=== PATIENT | female | born 1945 | race Hispanic/Latino ===

== ENCOUNTER → 2017-04-03 | Day surgery (SDC) | payer MEDICARE, OTHER ==
[~2017-04-03] MED LIST: ANUSOL-HC25 MG RC; APRISO0.375 GM PO; BENICAR40 MG PO; CARVEDILOL25 MG PO; FERROUS SULFAT325 M1 PO; FERROUS SULFAT325 MG; FOLIC ACID1 MG PO; GABAPENTIN300 MG PO; LEVAQUIN250 MG PO; LEVAQUIN500 MG PO; LOSARTAN POTASS25 MG PO; MAGNESIUM OXID400 MG PO; MECLIZINE HCL12.5 MG PO; MIDAZOLAM HCL 2 MG/2 ML VIAL ONE; OMEPRAZOLE40 MG PO; OR PHACO EYE KIT ONE; PANTOPRAZOLE SO40 MG PO; PLAVIX75 MG PO; PREDNISONE10 MG PO; PREOP PHACO EYE KIT ONE; SUCRALFATE1 GM PO; ULTRAM 50MG50 MG PO
== END | disposition home or self-care (01) ==
LOC: OR 09:51
PROVIDERS: ATTEND Ophthalmology
DX: H25.11 Age-related nuclear cataract, right eye (principal); I10 Essential (primary) hypertension; K50.90 Crohn's disease, unspecified, without complications; E03.9 Hypothyroidism, unspecified; F32.9 Major depressive disorder, single episode, unspecified
CPT/HCPCS: 66984; J2250; V2787

== ENCOUNTER 2017-10-26 05:07 | Inpatient (IN) | payer MEDICARE, OTHER ==
[~2017-10-26] VITALS: Ht 162.6 cm; Wt 83.0 kg
[~2017-10-26 05:07] MED LIST changes: -MIDAZOLAM HCL 2 MG/2 ML VIAL ONE; -OR PHACO EYE KIT ONE; -PREOP PHACO EYE KIT ONE
[2017-10-26] MEDS ORDERED: PANTOPRAZOLE 40 MG 10ML VIAL IV STA (05:44)
[2017-10-26 06:13] LABS: BASOPHILS % 0.2 % (0.0-1.0); EOSINOPHILS # (AUTO) 0.2 (0.0-0.4); HEMATOCRIT 33.8 % (34.2-44.1); HEMOGLOBIN 10.6 g/dL (12.0-16.0); LYMPHOCYTES # (AUTO) 2.1 (1.0-3.2); LYMPHOCYTES % 22.2 % (18.0-39.1); MEAN CORPUSCULAR HGB CONC 31.4 g/dL (31-35); MONOCYTES # (AUTO) 0.9 (0.2-0.8); MONOCYTES % 8.8 % (4.4-11.3); NEUTROPHILS # (AUTO) 6.4 (2.1-6.9); NEUTROPHILS % 66.2 % (38.7-80.0); PLATELET COUNT 248 x10e3/uL (140-360); RED BLOOD COUNT 4.07 x10e6/uL (3.6-5.1)
[2017-10-26 06:23] LABS: INR 1.05; PROTHROMBIN TIME 12.9 seconds (11.9-14.5)
[2017-10-26 06:24] LABS: PARTIAL THROMBOPLASTIN TIME 33.8 seconds (23.8-35.5)
[2017-10-26 06:33] LABS: ALANINE AMINOTRANSFERASE 9 IU/L (0-55); ALBUMIN 3.6 g/dL (3.5-5.0); ALBUMIN/GLOBULIN RATIO 1.1 (0.8-2.0); ALKALINE PHOSPHATASE 97 IU/L (40-150); ANION GAP 13.8 mmol/L (8-16); BLOOD UREA NITROGEN 31 mg/dL (7-26); BUN/CREATININE RATIO 23 (6-25); CALCIUM 9.4 mg/dL (8.4-10.2); CARBON DIOXIDE 19 mmol/L (22-29); CHLORIDE 110 mmol/L (98-107); CREATINE KINASE 33 IU/L (29-168); CREATININE, SERUM 1.33 mg/dL (0.57-1.11); EST GLOMERULAR FILTRATION RATE 39 ML/MIN (60-); GLUCOSE 99 mg/dL (74-118); POTASSIUM 3.8 mmol/L (3.5-5.1); SODIUM 139 mmol/L (136-145)
[2017-10-26] MEDS ORDERED: PROBIOTIC & AC1 EACH PO (06:37)
[2017-10-26] MEDS ORDERED: HYDROCHLOROTH12.5 M1 PO (06:37)
[2017-10-26] MEDS ORDERED: LEVOTHYROXINE50 MCG PO (06:37)
[2017-10-26] MEDS ORDERED: TIZANIDINE HCL4 M1 PO (06:37)
[2017-10-26] MEDS ORDERED: NORVASC5 MG PO (06:37)
[2017-10-26] MEDS ORDERED: SULFASALAZINE500 MG PO (06:37)
--- NOTE | 2017-10-26 06:42 | Diagnostic Imaging Report ---
CHEST 2 VIEWS, Technique: CHEST 2 VIEWS Comparison: 11/30/2016 Clinical history: Shortness of breath DISCUSSION: Normal cardiomediastinal silhouette. Low lung volumes with bibasilar vascular crowding/atelectasis. No pleural effusion or pneumothorax. IMPRESSION: Low lung volumes without acute abnormality Signed by: Dr Beth Marrero MD on 10/26/2017 6:38 AM
[2017-10-26 06:48] LABS: BILIRUBIN,URINE NEGATIVE (NEGATIVE); CLARITY,URINE CLEAR (CLEAR); COLOR,URINE YELLOW (YELLOW); KETONES,URINE NEGATIVE (NEGATIVE); LEUKOCYTE ESTERASE ,URINE TRACE (NEGATIVE); NITRITE,URINE NEGATIVE (NEGATIVE); PROTEIN,URINE DIPSTICK NEGATIVE (NEGATIVE); URINE UROBILINOGEN 0.2 mg/dL (0.2 - 1)
[2017-10-26 06:52] LABS: BACTERIA,URINE FEW /HPF; EPITHELIAL CELLS,URINE FEW /LPF; WBC,URINE (MAN) 0-5 /HPF (0-5)
[2017-10-26 06:52] LABS: THYROID STIMULATING HORMONE 4.373 uIU/mL (0.350-4.940)
[2017-10-26] MEDS ORDERED: SODIUM CHLORIDE 0.9% 500ML 500 ML IV ONE (07:30)
[2017-10-26] MEDS: FAMOTIDINE 20 MG/2 ML VIAL IV SCH ×2 (07:44→20:06)
[2017-10-26] MEDS ORDERED: SODIUM CHLORIDE 0.9% 250ML 250 ML ONE (09:14)
[2017-10-26 09:20] VITALS: BP 169/82
--- NOTE | 2017-10-26 10:05 | Diagnostic Imaging Report ---
PROCEDURE: CT scan of the chest WITH intravenous contrast, using PE protocol. TECHNIQUE: The chest was scanned utilizing a multidetector helical scanner from the lung apex through the level of the adrenal glands after the IV administration of 71 cc of Isovue 370. Coronal and sagittal multiplanar reformations were obtained. DLP: 542.54 mGy-cm COMPARISON: None. INDICATIONS: WOKE UP AND WAS UNABLE TO BREATHE. SHORTNESS OF BREATH FINDINGS: Lines/tubes: None. Lungs and Airways: No CTA evidence of pulmonary emboli. Mosaic attenuation of the lungs compatible with air trapping. There is a left lower lobe calcified granuloma. No nodules or masses. Pleura: The pleural spaces are clear. Heart and mediastinum: There is a 1.6 cm hypodense nodule in the mid right thyroid lobe. Another 8mm hypodense nodule is noted in the inferior right thyroid lobe. Several calcifications in the left thyroid lobe are noted. Mediastinal and left hilar calcifications compatible with granulomatous changes. No significant mediastinal, hilar or axillary lymphadenopathy is seen. The heart and pericardium are within normal limits. Common origin of the innominate artery and left common carotid artery. Soft tissues: Normal. Abdomen: Limited contrast-enhanced views of the upper abdomen show no abnormality within the visualized spleen, pancreas or kidneys. Decreased CT attenuation of the liver compatible with mild steatosis. The adrenal glands are normal. Bones: Degenerative changes of the spine. IMPRESSION: 1. No CT evidence of pulmonary emboli. 2. Mosaic attenuation of the lung blevins compatible with air trapping. 3. Hypodense nodule in the right thyroid lobe-formal thyroid ultrasound would be of benefit. Nain Burton D.O. Dictated by: Nain Burton D.O. on 10/26/2017 at 10:09 Electronically approved by: Nain Burton D.O. on 10/26/2017 at 10:09
[2017-10-26] MEDS: ASPIRIN 81 MG ENTERIC COATED PO SCH (10:10)
[2017-10-26] MEDS: TIZANIDINE HCL 4 MG TAB PO SCH ×2 (10:15→23:15)
[2017-10-26 10:32] VITALS: BP 169/82
--- NOTE | 2017-10-26 11:45 | History and Physical ---
She is a 72-year-old female patient presented to the emergency room with a shortness of breath. CHIEF COMPLAINT: Patient woke up with severe shortness of breath and was checking and he insisted her to come to the ER. Patient was having shortness of breath for last two to three weeks. Patient stating that she gets short of breath on minimum of activity. In ER, patient was evaluated. Patient denies having any chest pain, cough, and congestion, but with shortness of breath. Patient has minimal activity, short of breath and patient become hypoxic from O2 sat dropped 99 to 87 on minimum activity in the ER. REVIEW OF SYSTEMS: As per history of present illness. PAST MEDICAL HISTORY: Depression, anxiety, GERD, anemia, Crohn's disease, and hypothyroidism. ALLERGIES: No known drug allergies. MEDICATIONS: See from the list. SOCIAL HISTORY: Denies smoking, denies using alcohol. FAMILY HISTORY: Hypertension. PHYSICAL EXAMINATION GENERAL: Elderly female patient lying in bed, not in any acute distress. VITAL SIGNS: Temperature 98, pulse rate 78, respirations 15, and blood pressure 110/74. HEENT: Normocephalic and atraumatic. NECK: No JVD. No lymphadenopathy. LUNGS: Bilateral equal air entry. No rales, no rhonchi. HEART: S1 and S2, regular. No murmur. No gallop. ABDOMEN: Soft. Bowel sounds are present. NEUROLOGIC: Nonfocal. No neurologic deficit. ADMITTING IMPRESSION/DIAGNOSES: Shortness of breath rule out ischemia, myocardial infarction, and hypoxemia. CT scan of the chest was done which was negative for pulmonary embolism. The patient will have serial EKGs and cardiac enzymes and echocardiogram was done which showed 55% to 60% ejection fraction and no significant valvular disease. So, cardiology evaluation will be done and patient will be followed up. Job#: [id number] ERIC
[2017-10-26 11:57] VITALS: BP 159/79
[2017-10-26] MEDS: SULFASALAZINE 500 MG TAB PO SCH ×3 (13:16→20:06)
--- NOTE | 2017-10-26 13:45 | Consultation ---
DATE OF CONSULTATION: October 26, 2017 INTERVENTIONAL CARDIOLOGY CONSULTATION REFERRING PHYSICIAN: Dr. Martín Miller REASON FOR CONSULTATION: Dyspnea on exertion. HISTORY OF PRESENT ILLNESS: Ms. Anita Ritter is a pleasant 72-year-old woman with a past medical history significant for anxiety, depression, anemia, Crohn's disease, gastroesophageal reflux disease as well as hypothyroidism. She presents via the emergency department to [facility] with complaints of worsening dyspnea over the last week. Dyspnea occurs with exertion and is relieved by rest. She denies any chest discomfort. She does have occasional cough which is dry. No fever is reported. Per ER, oxygen saturation drops from 99% to 87% with minimal activity while in the ER. Initial studies include negative cardiac biomarkers including troponin I as well as a BNP of 14.7, chest x-ray with low lung volumes without acute abnormality and a chest CT which shows no evidence of pulmonary embolism and most likely attenuation of the lung blevins compatible with air-trapping and hypodense nodule in the right thyroid lobe from a thyroid ultrasound. Echocardiogram was reviewed revealing preserved left ventricular systolic function, normal regional wall motion, left ventricular ejection fraction of 65% to 70% with normal diastolic filling, trace mitral and tricuspid regurgitation. Her EKG reveals normal sinus rhythm, normal EKG. She is mildly anemic at 10.6 with a creatinine of 1.3. REVIEW OF SYSTEMS: A 12-system review, negative except for as noted above. ALLERGIES: No known drug allergies. PAST MEDICAL HISTORY: As per HPI, include depression, anxiety, reflux, anemia, Crohn's disease, hypothyroidism. SOCIAL HISTORY: No smoke, no alcohol, no drugs reported. FAMILY HISTORY: Significant for hypertension. Adequate family support. HOME MEDICATIONS: Please see medication reconciliation form. PHYSICAL EXAMINATION VITAL SIGNS: Temperature 95.6, heart rate 87, respiratory rate 16, blood pressure 159/79. On admission blood pressure was 132/84. O2 sat 97% at rest. GENERAL: No acute distress. Alert. NECK: No JVD. CHEST: Decreased breath sounds in bilateral bases. CARDIOVASCULAR: Regular rate and rhythm. Normal S1 and S2. No S3, no S4. No murmurs, no rubs. ABDOMEN: Soft, nontender. EXTREMITIES: No edema. Warm distal extremities. CURRENT IN-HOSPITAL CARDIOVASCULAR MEDICATIONS: Include 1. Aspirin 81 mg daily. 2. Carvedilol 12.5 mg b.i.d. 3. Prednisone 5 mg daily. 4. Amlodipine 10 mg daily. 5. Ferrous sulfate 325 mg daily. 6. Losartan 100 mg daily. STUDIES: Sodium 139, potassium 3.8, chloride 110, bicarb 19, BUN 31, creatinine 1.33, glucose 99, calcium 9.4, magnesium 2. Total bilirubin 0.5, AST 13, ALT 9, alk phos 97, CK 33, CK-MB 0.7. Troponin I less than 0.001. BNP 14.7. Total protein 7, albumin 3.6, TSH 4.3. ASSESSMENT 1. Dyspnea on exertion with exertional hypoxemia and abnormal chest CT findings with most likely attenuation of lungs compatible with air trapping. 2. Hypothyroidism. 3. Anemia. 4. Chronic kidney disease versus acute kidney injury. 5. Metabolic acidosis. 6. History of Crohn's disease. RECOMMENDATIONS 1. Dyspnea seems likely multifactorial. Although anemic, her level of anemia is not significant enough to attribute most of her symptoms. I am most concerned about her dropping oxygen levels with exertion, particularly with findings on chest CT of the lungs and suspect likely culprit is ongoing lung issue, whether it is infectious, atypical infection or pneumonitis/fibrotic process, warrants further evaluation. Will defer to Dr. Miller's expertise. 2. Differential diagnosis angina pectoris, unstable, is a possibility. We will send an additional set of cardiac enzymes and if negative plan for a stress test in the a.m. Will continue the rest of the cardiovascular medications for the time being. Anemic workup advised. Thank you for the opportunity to participate in the care of Anita. Please feel free to call with any questions or concerns. Office number [phone]. Job#: [id number] LOLIS
[2017-10-26] MEDS ORDERED: SODIUM CHLORIDE 0.9% 50ML 50 ML ONE (13:47)
[2017-10-26] MEDS ORDERED: IOPAMIDOL 370 MG/ML 200 ML INFUS..BTL INJ ONE (13:47)
[2017-10-26 16:00] VITALS: BP 111/60
[2017-10-26] MEDS: CARVEDILOL 12.5 MG TAB PO SCH (16:09)
[2017-10-26] MEDS ORDERED: REGADENOSON 0.4 MG/5 ML SYR IV ONE (17:26)
[2017-10-26 17:27] LABS: CREATINE KINASE MB 0.7 ng/mL (0-5.0)
[2017-10-26 20:00] VITALS: BP 112/46
[2017-10-26 20:13] VITALS: BP 112/46
[2017-10-27] VITALS (9 sets, daily range): BP systolic 100–152; BP diastolic 61–70
[2017-10-27] MEDS: TIZANIDINE HCL 4 MG TAB PO SCH ×3 (00:11→21:15)
[2017-10-27 04:55] LABS: BASOPHILS % 0.4 % (0.0-1.0); EOSINOPHILS # (AUTO) 0.3 (0.0-0.4); EOSINOPHILS % 3.6 % (0.0-6.0); HEMATOCRIT 29.3 % (34.2-44.1); HEMOGLOBIN 9.2 g/dL (12.0-16.0); LYMPHOCYTES # (AUTO) 1.8 (1.0-3.2); LYMPHOCYTES % 21.7 % (18.0-39.1); MEAN CORPUSCULAR HGB CONC 31.4 g/dL (31-35); MEAN CORPUSCULAR VOLUME 82.8 fL (81-99); MONOCYTES # (AUTO) 0.7 (0.2-0.8); MONOCYTES % 8.4 % (4.4-11.3); NEUTROPHILS # (AUTO) 5.4 (2.1-6.9); NEUTROPHILS % 65.2 % (38.7-80.0); PLATELET COUNT 204 x10e3/uL (140-360); RED BLOOD COUNT 3.54 x10e6/uL (3.6-5.1); RED CELL DISTRIBUTION WIDTH 17.9 % (11.7-14.4)
[2017-10-27 05:19] LABS: ALBUMIN 3.1 g/dL (3.5-5.0); ALBUMIN/GLOBULIN RATIO 1.1 (0.8-2.0); ANION GAP 11.7 mmol/L (8-16); CALCIUM 8.5 mg/dL (8.4-10.2); CHOL/HDL RATIO 2.9 (3.0-3.6); CREATININE, SERUM 1.27 mg/dL (0.57-1.11); POTASSIUM 3.7 mmol/L (3.5-5.1)
[2017-10-27] MEDS: PANTOPRAZOLE SOD 40 MG TABEC PO SCH (07:30)
[2017-10-27] MEDS: CARVEDILOL 12.5 MG TAB PO SCH ×2 (08:00→16:25)
[2017-10-27] MEDS: LEVOTHYROXINE SODIUM 50 MCG TAB PO SCH (09:00)
[2017-10-27] MEDS: LOSARTAN POTASSIUM 100 MG TAB PO SCH (09:00)
--- NOTE | 2017-10-27 10:43 | Progress Note ---
DATE: October 27, 2017 CARDIOLOGY PROGRESS NOTE SUBJECTIVE: No complaints. Stress test this a.m. Report to follow. OBJECTIVE VITALS: Temperature 96.6, heart rate 79, respiratory rate 18, blood pressure 140/70, O2 sat 95% on room air. GENERAL: No acute distress. Alert. NECK: No JVD. CHEST: Decreased breath sounds in bilateral bases. CARDIOVASCULAR: Regular rate and rhythm. Normal S1 and S2. No S3. No S4. No murmurs. No rubs. ABDOMEN: Soft. EXTREMITIES: No edema. Warm distal extremities. CARDIOVASCULAR MEDICATIONS 1. Aspirin 81 mg daily. 2. Carvedilol 12.5 mg q.12 h. 3. Cardizem 5 mg daily. 4. Amlodipine 10 mg daily. STUDIES: Reviewed. White blood cells 8.3, hemoglobin 9.2 and platelets 204,000. Creatinine 0.4. Sodium 139, potassium 3.7, chloride 112, bicarbonate 19, BUN 29, creatinine 1.27. Triglycerides 142, total cholesterol 119, LDL 50, HDL 41. TSH 4.3. Tele is normal sinus rhythm. ASSESSMENT 1. Exertional dyspnea with associated drops in saturation: Normal computerized tomography lung findings. 2. Possible angina pectoris, unstable: Ruled out with serial cardiac enzymes. Stress test today. Report to follow. 3. Anemia. 4. Chronic kidney disease versus acute kidney injury. 5. Metabolic acidosis. 6. History of Crohn disease. 7. Hypothyroidism. 8. Hypertension. PLAN 1. Continue current cardiovascular medications. 2. Await results from stress test. Will dictate report once available. 3. Consider pulmonary consultation. Defer to Dr. Miller's expertise. Job#: [id number] ND
[2017-10-27] MEDS ORDERED: ACETAMINOPHEN 325 MG TAB PO PRN (11:45)
[2017-10-27] MEDS: ASPIRIN 81 MG ENTERIC COATED PO SCH (12:06)
[2017-10-27] MEDS: SULFASALAZINE 500 MG TAB PO SCH ×4 (12:06→21:14)
[2017-10-27] MEDS: FAMOTIDINE 20 MG/2 ML VIAL IV SCH ×2 (12:06→21:00)
[2017-10-27] MEDS: FOLIC ACID 1 MG TAB PO SCH (12:07)
[2017-10-27] MEDS: LACTOBACILLUS ACIDOPHILUS CAPSULE PO SCH (12:07)
[2017-10-27] MEDS: PREDNISONE 5 MG TAB PO SCH (12:07)
[2017-10-27] MEDS: HYDROCHLOROTHIAZIDE 25 MG TAB PO SCH (12:07)
[2017-10-27] MEDS: FERROUS SULFATE 325 MG TAB PO SCH (12:07)
[2017-10-27] MEDS: AMLODIPINE BESYLATE 10 MG TAB PO SCH (12:07)
--- NOTE | 2017-10-27 14:28 | Consultation ---
DATE OF CONSULTATION: October 27, 2017 PULMONARY CONSULTATION REASON FOR CONSULTATION: Shortness of breath. HPI: Ms. Ritter is a 72-year-old female. She was brought in to the emergency room with the complaints of shortness of breath. Patient is a regular patient of Dr. Martín Miller. In the ER, the patient was evaluated. She is denying any chest pain, cough or congestion. Her O2 sat dropped to 87% on minimal activity in the ER. She denies any complaints right now. Patient reports that she has episodes where she gets short of breath and started having numbness and tingling in the arms. I reviewed the CT scan and chest films, which is reported as mosaic pattern. However, it seems like the patient did not take a deep breath, and the CT was done on expiration as the trachea is not fully expanded with inspiration. There was no evidence of pulmonary embolism. REVIEW OF SYSTEMS GENERAL: Denies any fever or chills. HEENT: Denies any head trauma. ENT: Denies any earache. CV: Denies any chest pain. RESPIRATORY: Shortness of breath. GI: Denies any nausea or vomiting. The rest of the review systems are negative, except as in HPI. PAST MEDICAL HISTORY: Depression, anxiety, GERD, anemia, Crohn disease, hypothyroidism. ALLERGIES: NO KNOWN DRUG ALLERGIES. SOCIAL HISTORY: She does not smoke. Does not drink. FAMILY HISTORY: Significant for hypertension. PHYSICAL EXAMINATION VITAL SIGNS: Temperature 96.3, Pulse of 90, blood pressure 152/67, respiratory rate of 18, O2 sat is 96% on room. HEENT: Head is atraumatic and normocephalic. NECK: Supple. Oral mucosa is dry. No JVD. Thyroid not enlarged. CHEST: Clear to auscultation bilaterally. No wheezing. No crackles. Good air entry. HEART: S1 and S2 audible. No murmurs, gallops or rub. It is regular. ABDOMEN: Soft, nontender and nondistended. Bowel sounds audible. No hepatosplenomegaly. EXTREMITIES: No clubbing, cyanosis or edema. NEUROLOGIC: Awake and alert. No focal neurologic deficit. LABS: White count of 8.3, hemoglobin 9.2 and platelets 204,000. Chemistries: Sodium 139, potassium 3.7, chloride 112, bicarb is 19, anion gap of 11.7, BUN 31, creatinine 1.27. CT of the chest, I reviewed the films. Reported as mosaic pattern. I think the patient did not take a deep breath. Mosaic pattern of the lung. It was done in expiration, and it is showing some poor respiratory effort. However, the mosaic pattern can also signify bronchiolitis. ASSESSMENT AND PLAN: Ms. Ritter is a 72-year-old female. She presented with shortness of breath. She has history of Crohn disease, depression, anxiety. Oxygen saturation now is 97%, but episodically she has shortness of breath. Computerized tomography is showing mosaic pattern. The most common differential for mosaic pattern is bronchiolitis versus asthma. CURRENT PROBLEMS 1. Shortness of breath: Stress test is pending. Cardiology note suggests that likely it is not cardiac in origin. Could be due to bronchiolitis, which can happen with Crohn disease. However, rare and it can be due to asthma as well. At this point, I will start the patient on steroid inhaler and nebulizer treatment as well. 2. Acute kidney injury with normal anion gap metabolic acidosis: I will hold off on hydrochlorothiazide for now. Possibly causing her to have renal failure. It could be chronic kidney disease as well. 3. History of Crohn disease, likely reason for being on low-dose prednisone: I am unsure about this. She is on sulfasalazine as well. Discussed with the family at bedside in detail. Job#: [id number] OLIVA
[2017-10-28] VITALS: BP 101/58
[2017-10-28 03:51] VITALS: BP 101/55
[2017-10-28] MEDS: LEVOTHYROXINE SODIUM 50 MCG TAB PO SCH (05:12)
[2017-10-28 07:50] VITALS: BP 114/60
[2017-10-28] MEDS: FAMOTIDINE 20 MG/2 ML VIAL IV SCH ×2 (09:01→21:19)
[2017-10-28] MEDS: PANTOPRAZOLE SOD 40 MG TABEC PO SCH (09:01)
[2017-10-28] MEDS: TIZANIDINE HCL 4 MG TAB PO SCH ×2 (09:10→21:20)
[2017-10-28] MEDS: LOSARTAN POTASSIUM 100 MG TAB PO SCH (09:40)
[2017-10-28] MEDS: SULFASALAZINE 500 MG TAB PO SCH ×4 (09:40→21:19)
[2017-10-28] MEDS: CARVEDILOL 12.5 MG TAB PO SCH ×2 (09:40→16:58)
[2017-10-28] MEDS: ASPIRIN 81 MG ENTERIC COATED PO SCH (09:40)
[2017-10-28] MEDS: HYDROCHLOROTHIAZIDE 25 MG TAB PO SCH (09:41)
[2017-10-28] MEDS: LACTOBACILLUS ACIDOPHILUS CAPSULE PO SCH (09:41)
[2017-10-28] MEDS: FOLIC ACID 1 MG TAB PO SCH (09:41)
[2017-10-28] MEDS: AMLODIPINE BESYLATE 10 MG TAB PO SCH (09:41)
[2017-10-28] MEDS: PREDNISONE 5 MG TAB PO SCH (09:41)
[2017-10-28] MEDS: FERROUS SULFATE 325 MG TAB PO SCH (09:41)
[2017-10-28] MEDS: BUDESONIDE 0.5MG/2 ML NEB INH SCH ×2 (10:30→20:00)
[2017-10-28] MEDS: LEVALBUTEROL HCL SOLN NEBU 1.25 MG/3 ML NEB INH SCH ×3 (10:30→19:45)
[2017-10-28 12:00] VITALS: BP 102/58
[2017-10-28 16:04] VITALS: BP 113/67
--- NOTE | 2017-10-28 19:45 | Progress Note ---
DATE: October 28, 2017 CARDIOLOGY PROGRESS NOTE SUBJECTIVE: No complaints today. Denies dyspnea at rest; however, continues to have dyspnea on exertion. OBJECTIVE VITAL SIGNS: Temperature 97.4, heart 77, respiratory rate 16, blood pressure 102/58, O2 sat 98% room air. GENERAL: No acute distress. NECK: No JVD. CHEST: Clear to auscultation. CARDIOVASCULAR: Regular rate and rhythm. Normal S1 and S2. No S3, no S4, no murmurs, no rubs. ABDOMEN: Soft, nontender, nondistended. EXTREMITIES: No edema. CARDIOVASCULAR MEDICATIONS: Reviewed. 1. Carvedilol 12.5 mg q.12 h. 2. Hydrochlorothiazide 12.5 mg daily. 3. Amlodipine 10 mg daily. 4. Aspirin 81 mg daily. 5. Losartan 100 mg daily. LABS: Reviewed. White blood cells 8.3, hemoglobin 9.2, platelets 204,000. Yesterday's creatinine was 1.2 with bicarb of 19. TELEMETRY: Normal sinus rhythm. ASSESSMENT 1. Dyspnea on exertion with normal rest and stress myocardial perfusion imaging and left ventricular ejection fraction more than 70% (reassuring stress test). 2. Anemia. 3. Chronic kidney disease versus acute kidney injury. 4. Metabolic acidosis. 5. History of chronic Crohn's disease. 6. Hypothyroidism. 7. Hypertension. RECOMMENDATIONS: At this point, I would advise on evaluation for alternative etiologies for shortness of breath mainly from the lung standpoint given CT findings. Eval testing is unremarkable, can then consider pursuing invasive cardiac evaluation with right heart cath and left heart cath with coronary angiography. However, at this point, I do not feel this is the likely culprit given clinical presentation, as well as stress test findings. Will follow closely. Job#: [id number] CQ
[2017-10-28 20:43] VITALS: BP 122/59
[2017-10-29] VITALS: BP 104/60
[2017-10-29] MEDS: LEVALBUTEROL HCL SOLN NEBU 1.25 MG/3 ML NEB INH SCH ×2 (01:00→06:50)
[2017-10-29 04:00] VITALS: BP 123/57
[2017-10-29 05:12] LABS: BASOPHILS % 0.3 % (0.0-1.0); EOSINOPHILS # (AUTO) 0.2 (0.0-0.4); EOSINOPHILS % 2.5 % (0.0-6.0); HEMOGLOBIN 9.1 g/dL (12.0-16.0); LYMPHOCYTES # (AUTO) 1.3 (1.0-3.2); LYMPHOCYTES % 16.5 % (18.0-39.1); MEAN CORPUSCULAR HEMOGLOBIN 26.5 pg (28-32); MEAN CORPUSCULAR HGB CONC 32.5 g/dL (31-35); MEAN CORPUSCULAR VOLUME 81.4 fL (81-99); MONOCYTES # (AUTO) 0.7 (0.2-0.8); MONOCYTES % 8.5 % (4.4-11.3); NEUTROPHILS # (AUTO) 5.7 (2.1-6.9); NEUTROPHILS % 71.6 % (38.7-80.0); PLATELET COUNT 207 x10e3/uL (140-360); RED BLOOD COUNT 3.44 x10e6/uL (3.6-5.1); RED CELL DISTRIBUTION WIDTH 17.8 % (11.7-14.4)
[2017-10-29 05:29] LABS: ALBUMIN 3.3 g/dL (3.5-5.0); ALBUMIN/GLOBULIN RATIO 1.1 (0.8-2.0); ANION GAP 12.5 mmol/L (8-16); CALCIUM 8.9 mg/dL (8.4-10.2); CREATININE, SERUM 1.42 mg/dL (0.57-1.11); POTASSIUM 3.5 mmol/L (3.5-5.1)
[2017-10-29] MEDS: ONDANSETRON HCL INJ 2 MG/ML VIAL IV PRN ×2 (05:34→13:01)
[2017-10-29] MEDS: LEVOTHYROXINE SODIUM 50 MCG TAB PO SCH (06:05)
[2017-10-29] MEDS: BUDESONIDE 0.5MG/2 ML NEB INH SCH (06:50)
[2017-10-29] MEDS: FAMOTIDINE 20 MG/2 ML VIAL IV SCH (07:30)
[2017-10-29] MEDS: FOLIC ACID 1 MG TAB PO SCH (08:58)
[2017-10-29] MEDS: FERROUS SULFATE 325 MG TAB PO SCH (08:58)
[2017-10-29] MEDS: SULFASALAZINE 500 MG TAB PO SCH (08:58)
[2017-10-29] MEDS: PANTOPRAZOLE SOD 40 MG TABEC PO SCH (08:58)
[2017-10-29] MEDS: ASPIRIN 81 MG ENTERIC COATED PO SCH (08:58)
[2017-10-29] MEDS: CARVEDILOL 12.5 MG TAB PO SCH (08:59)
[2017-10-29] MEDS: LACTOBACILLUS ACIDOPHILUS CAPSULE PO SCH (08:59)
[2017-10-29] MEDS: AMLODIPINE BESYLATE 10 MG TAB PO SCH (08:59)
[2017-10-29] MEDS: PREDNISONE 5 MG TAB PO SCH (08:59)
[2017-10-29] MEDS: LOSARTAN POTASSIUM 100 MG TAB PO SCH (08:59)
[2017-10-29] MEDS: HYDROCHLOROTHIAZIDE 25 MG TAB PO SCH (09:00)
[2017-10-29] MEDS ORDERED: CYANOCOBALAMIN INJ 1,000 MCG/ML VIAL IM ONE (10:15)
[2017-10-29 10:20] VITALS: BP 121/58
[2017-10-29] MEDS: TIZANIDINE HCL 4 MG TAB PO SCH (11:33)
[2017-10-29] MEDS ORDERED: SYMBICORT 80-10.2 GM INH (11:58)
[2017-10-29] MEDS ORDERED: XOPENEX HFA15 GM INH (11:59)
[2017-10-29 12:15] VITALS: BP 115/61
--- NOTE | 2017-10-29 13:02 | Discharge Summary ---
She is a 72-year-old female patient who presented with complaint of shortness of breath. ADMITTING IMPRESSION AND DIAGNOSES 1. Shortness of breath. 2. Rule out myocardial ischemia. 3. Hypoxemia. 4. Suspect pulmonary embolism. 5. Colitis. 6. Inflammatory bowel disease. 7. Crohn's disease. 8. Hypokalemia. HOSPITAL COURSE SUMMARY: The patient was admitted with the above diagnoses. The patient had pulmonary and cardiology evaluation done by Dr. Woodall. The patient had a CT scan of the chest done, which was negative for PE. She had a right thyroid nodule. No PE. The patient had an echocardiogram done. Ejection fraction was 55% to 60%. Stress myocardial perfusion study was done, which was negative. The patient was given Pulmicort and Xopenex inhaler. The patient improved significantly. Now, upon stabilization, the patient will be discharged home. The patient will be followed up as an outpatient. NELLY VELEZ MD Job#: [id number]
[2017-10-29] MEDS ORDERED: FAMOTIDINE 20 MG TAB PO SCH (16:30)
--- NOTE | 2017-11-12 11:47 | Cardiology Report ---
DATE OF STUDY: October 27, 2017 LEXISCAN STRESS TEST INTERPRETATION: Rest and stress myocardial perfusion with Lexiscan and technetium was performed using SPECT imaging on Ms. Ritter. At rest, heart rate was 84, blood pressure 143/83 and resting EKG showed normal sinus rhythm, otherwise normal EKG. After Lexiscan was administered, heart rate juan to 112 beats per minute, blood pressure increased to 151/78. There were no significant ST changes or arrhythmias throughout stress or recovery. Myocardial perfusion reveals normal rest and stress perfusion and gated images demonstrate hyperdynamic left ventricular systolic function with normal regional wall motion, left ventricular ejection fraction more than 70%. CONCLUSION 1. Normal hemodynamic response to Lexiscan stress. 2. Normal electrocardiographic response to Lexiscan stress. 3. Normal myocardial perfusion at rest and stress. 4. Preserved left ventricular systolic function with LVEF more than 70%. Job#: [id number] SKI
== END 2017-10-29 13:46 | disposition home or self-care (01) | DRG 202 ==
LOC: ER 05:07 → UNDOADMOB 07:38 → ERHOLD 07:38 → IMCU 09:21 → ERHOLD 10-28 13:53 → IMCU 10-28 13:53 → OBSVTOIN 10-28 13:54 → MED/SURG 10-28 17:00 → IMCU 10-28 17:00 → UNDODISOB 10-29 13:46
PROVIDERS: ADMIT Internal Medicine; ATTEND Internal Medicine
DX: J21.9 Acute bronchiolitis, unspecified (principal); N17.9 Acute kidney failure, unspecified; E87.2 Acidosis; K50.90 Crohn's disease, unspecified, without complications; R07.9 Chest pain, unspecified; D50.0 Iron deficiency anemia secondary to blood loss (chronic); R09.02 Hypoxemia; F32.9 Major depressive disorder, single episode, unspecified; K21.9 Gastro-esophageal reflux disease without esophagitis; E03.9 Hypothyroidism, unspecified; D64.9 Anemia, unspecified; N18.9 Chronic kidney disease, unspecified; E87.6 Hypokalemia; F41.9 Anxiety disorder, unspecified; I12.9 Hypertensive chronic kidney disease with stage 1 through stage 4 chronic kidney disease, or unspecified chronic kidney disease
CPT/HCPCS: 36415; 71046; 71260; 78452; 80053; 80061; 81001; 82550; 82553; 83735; 83880; 84443; 84484; 85025; 85610; 85730; 93005; 93017; 93306; 94640; 99284; A9502; G0378; J2405; J3420; J7040; J7050; J7512; Q9967

== ENCOUNTER 2017-10-31 21:58 | Emergency (ER) | payer MEDICARE, OTHER ==
[~2017-10-31] VITALS: Ht 162.6 cm; Wt 83.0 kg
[~2017-10-31 21:58] MED LIST changes: +HYDROCHLOROTH12.5 M1 PO; +LEVOTHYROXINE50 MCG PO; +NORVASC5 MG PO; +PROBIOTIC & AC1 EACH PO; +SULFASALAZINE500 MG PO; +SYMBICORT 80-10.2 GM INH; +TIZANIDINE HCL4 M1 PO; +XOPENEX HFA15 GM INH
[2017-10-31] MEDS ORDERED: DIATRIZOATE MEGL/DIATRIZOA SOD 30 ML BTL PO ONE (22:23)
[2017-10-31 22:48] LABS: BASOPHILS % 0.2 % (0.0-1.0); EOSINOPHILS # (AUTO) 0.1 (0.0-0.4); EOSINOPHILS % 1.3 % (0.0-6.0); HEMATOCRIT 33.6 % (34.2-44.1); HEMOGLOBIN 10.5 g/dL (12.0-16.0); LYMPHOCYTES # (AUTO) 2.3 (1.0-3.2); LYMPHOCYTES % 22.2 % (18.0-39.1); MEAN CORPUSCULAR HEMOGLOBIN 25.7 pg (28-32); MEAN CORPUSCULAR HGB CONC 31.3 g/dL (31-35); MEAN CORPUSCULAR VOLUME 82.2 fL (81-99); MONOCYTES # (AUTO) 1.1 (0.2-0.8); MONOCYTES % 10.3 % (4.4-11.3); NEUTROPHILS # (AUTO) 6.7 (2.1-6.9); NEUTROPHILS % 65.3 % (38.7-80.0); PLATELET COUNT 263 x10e3/uL (140-360); RED BLOOD COUNT 4.09 x10e6/uL (3.6-5.1)
[2017-10-31 23:09] LABS: ALANINE AMINOTRANSFERASE 8 IU/L (0-55); ALBUMIN 3.7 g/dL (3.5-5.0); ALBUMIN/GLOBULIN RATIO 1.1 (0.8-2.0); ALKALINE PHOSPHATASE 90 IU/L (40-150); AMYLASE 78 U/L (25-125); BLOOD UREA NITROGEN 35 mg/dL (7-26); BUN/CREATININE RATIO 21 (6-25); CALCIUM 9.5 mg/dL (8.4-10.2); CARBON DIOXIDE 20 mmol/L (22-29); CHLORIDE 108 mmol/L (98-107); CREATININE, SERUM 1.69 mg/dL (0.57-1.11); EST GLOMERULAR FILTRATION RATE 30 ML/MIN (60-); GLUCOSE 100 mg/dL (74-118); LIPASE 27 U/L (8-78); SODIUM 140 mmol/L (136-145)
[2017-10-31 23:30] LABS: CREATINE KINASE 35 IU/L (29-168)
[2017-10-31 23:45] LABS: CLARITY,URINE CLEAR (CLEAR); COLOR,URINE YELLOW (YELLOW)
[2017-10-31 23:46] LABS: BILIRUBIN,URINE 1+ (NEGATIVE); KETONES,URINE NEGATIVE (NEGATIVE); LEUKOCYTE ESTERASE ,URINE TRACE (NEGATIVE); NITRITE,URINE NEGATIVE (NEGATIVE); PROTEIN,URINE DIPSTICK NEGATIVE (NEGATIVE); URINE UROBILINOGEN 0.2 mg/dL (0.2 - 1)
[2017-10-31 23:54] LABS: BACTERIA,URINE MODERATE /HPF; EPITHELIAL CELLS,URINE FEW /LPF
--- NOTE | 2017-11-01 00:02 | Diagnostic Imaging Report ---
EXAMINATION: CHEST SINGLE (PORTABLE) INDICATION: Shortness of breath COMPARISON: 10/26/2017 FINDINGS: TUBES and LINES: None. LUNGS: Lungs are well inflated. Lungs are clear. There is no evidence of pneumonia or pulmonary edema. PLEURA: No pleural effusion or pneumothorax. HEART AND MEDIASTINUM: The cardiomediastinal silhouette is unremarkable. BONES AND SOFT TISSUES: No acute osseous lesion. Soft tissues are unremarkable. UPPER ABDOMEN: No free air under the diaphragm. IMPRESSION: No acute thoracic abnormality. Signed by: Dr. Jose Kilpatrick M.D. on 10/31/2017 11:58 PM
--- NOTE | 2017-11-01 00:07 | Diagnostic Imaging Report ---
EXAM: CT Abdomen and Pelvis WITHOUT contrast INDICATION: Lower abdominal pain. COMPARISON: None. TECHNIQUE: Abdomen and pelvis were scanned utilizing a multidetector helical scanner from the lung base to the pubic symphysis without administration of IV contrast. Absence of intravenous contrast decreases sensitivity for detection of focal lesions and vascular pathology. Coronal and sagittal reformations were obtained. Routine protocol was performed. IV CONTRAST: None. ORAL CONTRAST: Water RADIATION DOSE: Total DLP: 495.55 mGy*cm Estimated effective dose: (DLP x 0.015 x size factor) mSv COMPLICATIONS: None FINDINGS: LINES and TUBES: None. LOWER THORAX: There is bibasilar atelectasis. Calcified granuloma in the left lung base. HEPATOBILIARY: No focal hepatic lesions. No biliary ductal dilation. GALLBLADDER: There are cholecystectomy clips. SPLEEN: No splenomegaly. PANCREAS: No focal masses or ductal dilatation. ADRENALS: No adrenal nodules KIDNEYS/URETERS: No hydronephrosis. No cystic or solid mass lesions. No stones. GI TRACT: No abnormal distention, wall thickening, or evidence of bowel obstruction. Postsurgical changes related to partial right hemicolectomy or appendectomy. PELVIC ORGANS/BLADDER: Multi fibroid uterus. 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 LYMPH NODES: No lymphadenopathy. VESSELS: There is mild atherosclerotic disease in the aorta and major arterial branches. PERITONEUM / RETROPERITONEUM: No free air or fluid. BONES: There are degenerative changes in the lumbar spine. SOFT TISSUES: Unremarkable. IMPRESSION: 1. No acute intra-abdominal or pelvic abnormality. Signed by: Dr. Jose Kilpatrick M.D. on 11/01/2017 12:03 AM
[2017-11-01] MEDS ORDERED: CEFTRIAXONE SOD 1 GM VIAL IV ONE (00:15)
[2017-11-01] MEDS ORDERED: CEFTRIAXONE SOD 1 GM VIAL ONE (00:40)
== END 2017-11-01 01:23 | disposition home or self-care (01) ==
LOC: ER 21:58
DX: R10.32 Left lower quadrant pain (principal); N30.90 Cystitis, unspecified without hematuria; I10 Essential (primary) hypertension; K50.90 Crohn's disease, unspecified, without complications; E03.9 Hypothyroidism, unspecified; F32.9 Major depressive disorder, single episode, unspecified; E78.00 Pure hypercholesterolemia, unspecified
CPT/HCPCS: 36415; 71045; 74176; 80053; 81001; 82150; 82550; 82553; 83690; 84484; 85025; 93005; 99283; J0696

== ENCOUNTER 2018-12-25 19:39 | Observation (INO) | payer MEDICARE ==
[~2018-12-25] VITALS: Ht 162.6 cm; Wt 83.0 kg
[2018-12-25 21:08] LABS: BASOPHILS % 0.4 % (0.0-1.0); EOSINOPHILS # (AUTO) 0.3 (0.0-0.4); EOSINOPHILS % 2.9 % (0.0-6.0); HEMATOCRIT 33.9 % (34.2-44.1); HEMOGLOBIN 10.7 g/dL (12.0-16.0); LYMPHOCYTES # (AUTO) 1.6 (1.0-3.2); LYMPHOCYTES % 15.6 % (18.0-39.1); MEAN CORPUSCULAR HGB CONC 31.6 g/dL (31-35); MEAN CORPUSCULAR VOLUME 85.6 fL (81-99); MONOCYTES # (AUTO) 0.9 (0.2-0.8); MONOCYTES % 8.9 % (4.4-11.3); NEUTROPHILS # (AUTO) 7.5 (2.1-6.9); NEUTROPHILS % 71.3 % (38.7-80.0); PLATELET COUNT 274 x10e3/uL (140-360); RED BLOOD COUNT 3.96 x10e6/uL (3.6-5.1); RED CELL DISTRIBUTION WIDTH 15.7 % (11.7-14.4)
[2018-12-25 21:09] LABS: BILIRUBIN,URINE NEGATIVE (NEGATIVE); CLARITY,URINE SL CLOUDY (CLEAR); COLOR,URINE YELLOW (YELLOW); KETONES,URINE NEGATIVE (NEGATIVE); LEUKOCYTE ESTERASE ,URINE SMALL (NEGATIVE); NITRITE,URINE NEGATIVE (NEGATIVE); PROTEIN,URINE DIPSTICK TRACE (NEGATIVE); URINE UROBILINOGEN 0.2 mg/dL (0.2 - 1)
[2018-12-25 21:16] LABS: INR 0.91; PROTHROMBIN TIME 12.7 seconds (11.9-14.5)
[2018-12-25 21:17] LABS: PARTIAL THROMBOPLASTIN TIME 34.2 seconds (23.8-35.5)
[2018-12-25 21:22] LABS: BACTERIA,URINE MODERATE /HPF; EPITHELIAL CELLS,URINE FEW /LPF
[2018-12-25 21:26] LABS: ALBUMIN 3.3 g/dL (3.5-5.0); ANION GAP 14.9 mmol/L (8-16); CREATININE, SERUM 1.15 mg/dL (0.57-1.11)
[2018-12-25 21:29] LABS: POTASSIUM 2.9 mmol/L (3.5-5.1)
[2018-12-25] MEDS ORDERED: POTASSIUM CHLORIDE 20 MEQ TAB CR PO ONE (21:29)
[2018-12-25] MEDS ORDERED: KCL 20MEQ/.9 SOD CHL 1,000 ML IV ONE (21:30)
[2018-12-25 21:32] LABS: CREATINE KINASE MB 0.9 ng/mL (0-5.0)
--- NOTE | 2018-12-25 21:38 | Diagnostic Imaging Report ---
EXAMINATION: CHEST SINGLE (NOT PORTABLE) INDICATION: Chest pain COMPARISON: Chest radiograph 10/31/2017, chest CT 10/26/2018 FINDINGS: AP view TUBES and LINES: None. LUNGS: Lungs are not well inflated. Lungs are clear. There is no evidence of pneumonia or pulmonary edema. PLEURA: No pleural effusion or pneumothorax. HEART AND MEDIASTINUM: The cardiomediastinal silhouette is unremarkable. BONES AND SOFT TISSUES: No acute osseous lesion. Soft tissues are unremarkable. Degenerative changes in the shoulders and spine. UPPER ABDOMEN: No free air under the diaphragm. IMPRESSION: No acute thoracic abnormality. Signed by: Fahad Aden DO on 12/25/2018 9:35 PM
[2018-12-25] MEDS ORDERED: SUCRALFATE1 GM PO (21:49)
[2018-12-25] MEDS ORDERED: MELOXICAM7.5 MG PO (21:49)
[2018-12-25] MEDS ORDERED: MORPHINE SULFATE 2 MG/ML SYR 1ML IV PRN (22:15)
[2018-12-25] MEDS ORDERED: ASPIRIN 81 MG CHEW TAB PO ONE (22:15)
[2018-12-25] MEDS ORDERED: ONDANSETRON HCL INJ 2MG/ML 2ML 2 MG/ML VIAL IV PRN (22:15)
[2018-12-25] MEDS: CEFTRIAXONE SOD 1 GM/NS 50 ML 50 ML IV SCH (22:23)
[2018-12-25] MEDS: FAMOTIDINE 20 MG/2 ML VIAL IV SCH (22:23)
[2018-12-26] VITALS (9 sets, daily range): BP systolic 132–179; BP diastolic 64–83
[2018-12-26] MEDS ORDERED: CARVEDILOL 12.5 MG TAB PO ONE (00:15)
[2018-12-26] MEDS ORDERED: LOSARTAN POTASSIUM 100 MG TAB PO ONE (00:15)
--- NOTE | 2018-12-26 00:29 | NUR ---
REPORT RECEIVED FROM SASHA NARANJO. PATIENT ADMITTED IN UNIT @9111 BY STRETCHER. PATIENT ALERT/ORIENTED X3. DENIED PAIN AND NO SOB. RESPIRATION EVEN AND UNLABORED. SPO2 MAINTAINED 98% WITH RA. HEAD TO TOE ASSESSMENT COMPLETED. NO SKIN BREAKDOWN NOTED. BED IN LOWER POSITION,LOCKED. CALL ODELL WITHIN REACH. PATIENT INSTRUCTED TO CALL FOR HELP NEEDED. WILL CONTINUE TO MONITOR.
[2018-12-26 06:22] LABS: BASOPHILS % 0.2 % (0.0-1.0); EOSINOPHILS # (AUTO) 0.3 (0.0-0.4); EOSINOPHILS % 3.2 % (0.0-6.0); HEMATOCRIT 29.6 % (34.2-44.1); HEMOGLOBIN 9.3 g/dL (12.0-16.0); LYMPHOCYTES # (AUTO) 1.6 (1.0-3.2); LYMPHOCYTES % 17.8 % (18.0-39.1); MEAN CORPUSCULAR HEMOGLOBIN 27.2 pg (28-32); MEAN CORPUSCULAR HGB CONC 31.4 g/dL (31-35); MEAN CORPUSCULAR VOLUME 86.5 fL (81-99); MONOCYTES # (AUTO) 0.9 (0.2-0.8); NEUTROPHILS % 68.2 % (38.7-80.0); PLATELET COUNT 257 x10e3/uL (140-360); RED BLOOD COUNT 3.42 x10e6/uL (3.6-5.1)
[2018-12-26 06:53] LABS: CREATINE KINASE MB 0.6 ng/mL (0-5.0)
--- NOTE | 2018-12-26 07:02 | NUR ---
Report given to oncoming SASHA Love, walking round done.
[2018-12-26 07:11] LABS: ALBUMIN 2.7 g/dL (3.5-5.0); ALBUMIN/GLOBULIN RATIO 0.9 (0.8-2.0); ANION GAP 8.7 mmol/L (8-16); CALCIUM 8.4 mg/dL (8.4-10.2); CHOL/HDL RATIO 3.8 (3.0-3.6); POTASSIUM 3.7 mmol/L (3.5-5.1)
[2018-12-26] MEDS: SUCRALFATE 1 GM TAB PO SCH ×2 (08:40→17:18)
[2018-12-26] MEDS: SULFASALAZINE 500 MG TAB PO SCH ×4 (08:40→21:25)
[2018-12-26] MEDS: AMLODIPINE BESYLATE 5 MG TAB PO SCH (08:40)
[2018-12-26] MEDS: PREDNISONE 10 MG TAB PO SCH (08:40)
[2018-12-26] MEDS: FOLIC ACID 1 MG TAB PO SCH (08:40)
[2018-12-26] MEDS: FAMOTIDINE 20 MG/2 ML VIAL IV SCH (08:40)
[2018-12-26] MEDS: FERROUS SULFATE 325 MG TAB PO SCH (08:40)
[2018-12-26] MEDS: CARVEDILOL 12.5 MG TAB PO SCH ×2 (08:40→17:18)
[2018-12-26] MEDS: ASPIRIN 81 MG ENTERIC COATED PO SCH (08:40)
[2018-12-26] MEDS: LOSARTAN POTASSIUM 100 MG TAB PO SCH (08:40)
[2018-12-26] MEDS ORDERED: LOSARTAN POTASSIUM 100 MG TAB PO SCH (09:00)
[2018-12-26] MEDS ORDERED: PANTOPRAZOLE SOD 40 MG TABEC PO SCH (09:00)
[2018-12-26] MEDS ORDERED: MELOXICAM 7.5 MG TAB PO SCH (09:00)
[2018-12-26] MEDS ORDERED: HYDRALAZINE HCL 20 MG/ML VIAL IV PRN (09:15)
[2018-12-26] MEDS ORDERED: NITROGLYCERIN 0.4 MG SUBL SL PRN (09:15)
--- NOTE | 2018-12-26 13:41 | Consultation ---
DATE OF CONSULTATION: 12/26/2018 Cardiology Consultation CONSULTING PHYSICIAN: Tariq Bland MD, Interventional Cardiology. REASON FOR CONSULTATION: Chest pain. HISTORY OF PRESENT ILLNESS: A 73-year-old woman with a history of hypertension, chronic kidney disease and Crohn, presents with complaints of midsternal chest discomfort, pressure-like, localized to finger point to the middle chest and parasternal borders with 4th intercostal space, partially reproducible with pressure palpation to that site, lasting seconds at a time, severe in nature unaffected by exertion, position, inspiration or meals. Chest discomfort has been recurrent and ongoing for several days. The patient underwent previous evaluation last year in October, which involved a reassuring stress test. She has been advised also to followup as outpatient for mammographies, which have been ordered by primary physician. However, patient decided against the studies in the past. She does describe some breast discomfort that she has been experiencing also in recent past. She has currently no other complaints REVIEW OF SYSTEMS: A 12-system review is negative except for as noted above. ALLERGIES: NO KNOWN DRUG ALLERGIES. PAST MEDICAL HISTORY: Significant for hypertension, Crohn, depression and anxiety, gastroesophageal reflux disease, anemia, and hypothyroidism. SOCIAL HISTORY: No smoking, alcohol, or drugs. FAMILY HISTORY: Significant for hypertension. PHYSICAL EXAMINATION: VITAL SIGNS: Temperature of 96.7, heart rate 88, respiratory rate of 19, blood pressure 161/70, O2 saturation 96% on room air. GENERAL: In no acute distress, alert. NECK: No JVD. CHEST: Clear to auscultation. CARDIOVASCULAR: Regular rate and rhythm, normal S1 and S2, no S3, no S4, no murmurs or rubs. ABDOMEN: Soft, nontender, nondistended. Bowel sounds positive. EXTREMITIES: No cyanosis, clubbing or edema. CARDIOVASCULAR MEDICATIONS: Reviewed. Carvedilol 12.5 mg b.i.d., prednisone 5 mg daily, amlodipine 10 mg daily, aspirin 81 mg daily, hydralazine p.r.n. IV, Lovenox 30 mg subcu daily, nitroglycerin p.r.n., Symbicort inhaler, losartan 100 mg daily, ferrous sulfate. LABORATORY DATA: Studies reviewed. White blood cells 8.8, hemoglobin 9.3, platelets 257. INR 0.9, PTT 34, PT 12.7, D-dimer 312. Studies reviewed. Sodium 142, potassium 3.7, chloride 120, bicarbonate 17, BUN 15, creatinine 1. AST 17, ALT 16, alkaline phosphatase 92. Troponin I negative x2. Triglycerides 116. Total cholesterol 109, LDL 57, HDL 29. ASSESSMENT: 1. Atypical chest pain. 2. Crohn disease. 3. Metabolic acidosis. 4. Hypertension. 5. Anemia. 6. Hypothyroidism. 7. Depression and anxiety. RECOMMENDATIONS: On EKG, no evidence of ST abnormalities, has ruled out with serial cardiac enzymes, previous stress is done and hospital was reassuring, and symptoms remain atypical. Evaluation for alternative etiologies for chest discomfort is advised at this point. Resume antihypertensive medications. Outpatient followup advised in 3 to 4 weeks post discharge. If exertional pattern to symptoms develop, the patient has been advised to seek attention sooner including as needed ER evaluation. However, at this point in time, the patient denies any type of exertional symptoms. MD MARIANN Byrd/NABILA /[id number]
[2018-12-26] MEDS ORDERED: ONDANSETRON HCL 4 MG ORAL DISINTEGRATING TAB PO PRN (13:45)
[2018-12-26 14:08] LABS: CREATINE KINASE 45 IU/L (29-168)
--- NOTE | 2018-12-26 14:24 | Diagnostic Imaging Report ---
EXAM: US ABDOMEN COMPLETE DATE: 12/26/2018 12:00 AM INDICATION: Abdominal pain COMPARISON: CT abdomen pelvis of 10/31/2017 TECHNIQUE: Transverse and longitudinal ortiz scale and color doppler sonographic images of the upper abdomen were obtained. FINDINGS: There is no evidence of fluid or masses seen in the area of clinical concern in the right lower quadrant. LIVER 11.6 cm in the right midclavicular line. Normal echogenicity of the liver with normal contour, no masses. SPLEEN 8.3 cm in maximum diameter. Normal echogenicity, no masses. GALLBLADDER Status post cholecystectomy. BILE DUCTS No intra nor extra-hepatic biliary dilation. Common bile duct measures 3 mm PANCREAS: Not visualized due to overlying bowel gas. RIGHT KIDNEY: 8.9 cm Echogenicity: Mildly increased Collecting System: No hydronephrosis Stones: None Cyst/Mass: None LEFT KIDNEY: 8.5 cm Echogenicity: Mildly increased Collecting System: No hydronephrosis Stones: None Cyst/Mass: None VESSELS: Aorta: Not visualized due to overlying bowel gas. Inferior Vena Cava: Visualized portions are normal Main Portal Vein: 1.0 cm, normal size with hepatopetal flow. FREE FLUID: None IMPRESSION: Hepatic steatosis. Mildly increased renal parenchymal echogenicity, which can be seen with medical renal disease. Status post cholecystectomy. Signed by: Curt Leong MD on 12/26/2018 2:21 PM
--- NOTE | 2018-12-26 15:27 | History and Physical ---
PRESENTING COMPLAINT: Sudden onset substernal chest pain for one day. HISTORY OF PRESENT ILLNESS: A 73-year-old female was admitted from ER with complaints of sudden onset of pain over the substernal area involving epigastrium since yesterday afternoon. Pain was moderate to severe in intensity, unremitting with regular medication. The patient did not have any similar episode in the past as per her statement. She is told that she had off and on pain for last few days, but yesterday it got worse and the pain was compressive in nature, nonradiating, and not related to movement or food intake. The patient felt like she has some stuck pressure-like sensation over substernal and epigastric area. She had history of Crohn disease as per her statement. She was followed up with Dr. Antonio, ambulance operations supervisor for Crohn disease. The patient did not have any history of CAD as per her statement. She had mild shortness of breath along with this chest discomfort. Denied any nausea, vomiting, palpitation, diarrhea, episode of bloody stool or black stool. The patient had last bowel movement yesterday. REVIEW OF SYSTEMS: CONSTITUTIONAL: No fevers, chills, or rigor. EYE AND ENT: No nasal congestion. No sore throat. No earache. No visual disturbance. CARDIOVASCULAR: Substernal chest pain as per HPI, mild shortness of breath. No palpitation. PULMONARY: No cough. No hemoptysis. GI: Epigastric discomfort as per HPI. No nausea or vomiting. No episode of bloody stool or vomitus. No constipation. Last bowel movement yesterday. : No dysuria. No hematuria. MUSCULOSKELETAL/SKIN/LYMPHORETICULAR: No joint pain. No joint swelling. No skin rash. No swelling. NEUROLOGICAL: No loss of consciousness. No seizure or headache. SKIN: No rash or ulceration history. HISTORY OF PAST MEDICAL ILLNESS: Crohn disease by history, hypothyroidism, chronic anemia, GERD, gastritis, anxiety, depression, hypertension, and CKD stage 3. HISTORY OF PAST SURGERY: The patient had history of laparotomy for Crohn disease in the past as per her statement. She had a colonoscopy about 2 years ago at [facility] as per her statement. She had EGD done in remote past as per her statement. No other history of surgery. ALLERGIES: NO KNOWN MEDICATION ALLERGIES. HOME MEDICATIONS: As per med reconciliation sheet. SOCIAL HISTORY: The patient lives at home at [place] with her . 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 HOSPITAL NURSE HISTORY: The patient is postmenopausal. She has 8 offspring. FAMILY HISTORY: Positive for hypertension. HABITS: Denies smoking, drinking, or substance abuse history. PHYSICAL EXAMINATION: VITAL SIGNS: At presentation, BP 154/86, pulse 102, temperature 98.7, respiration 18, and SpO2 95% at room air. GENERAL: Alert, lying in bed without any acute distress, now feeling better than last night. HEENT: NC/AT. No pallor. No icterus. NECK: No JVD. No carotid bruit. No lymphadenopathy. No thyromegaly. HEART: S1 and S2. Regular. No murmur. LUNGS: Air entry equal on both sides. No crackles or rhonchi. ABDOMEN: Soft. No palpable mass. Mild tenderness over the epigastric area. No rebound tenderness. Bowel sounds active in all quadrants. EXTREMITIES: No edema, cyanosis, or clubbing. NEUROLOGICAL: Motor grossly equal on both sides. LABORATORY DATA: CBC; WBC 8.83, hemoglobin 9.3, hematocrit 29.6, platelet 257, MCV 86, RDW 16, neutrophils 60, and lymphocytes 17. Chemistry panel; sodium 142, potassium 3.7, chloride 120, CO2 17, anion gap 5, BUN 15, creatinine 1.0, was 1.15 at presentation, glucose 97, and calcium 8.4. Total bilirubin 0.4, AST 17, ALT 16, and alkaline phosphatase 92. CK 32 and CK-MB 0.60. Troponin I 0.002 two sets. Total protein 5.6, albumin 2.7, and globulin 2.9. Total cholesterol 109, LDL 57, HDL 29, and triglycerides 117. PT 12.7 and INR 0.91. D-dimer 312. Urinalysis negative for glucose, ketone, protein, leukocyte esterase, WBC 6 to 10, and RBC none. RADIOLOGICAL DATA: X-ray chest single view, no acute abnormality. EKG at presentation, sinus tachycardia at the rate of 105 beats per minute. No significant ST-T changes. Intervals within normal limits. ASSESSMENT AND PLAN: 1. Substernal chest pain, looks atypical. The patient did not have any history of coronary artery disease. We will keep her on telemetry to rule out acute myocardial infarction by serial cardiac enzyme and troponin. Cardiology consult is requested with Dr. Woodall. Would keep the patient on aspirin and nitroglycerin p.r.n. for now. 2. Epigastric discomfort. The patient had history of gastroesophageal reflux disease and Crohn disease. Would keep the patient on PPI. Request a GI consult by Dr. Antonio, would have an abdominal ultrasound, check also lipase level. 3. Hypertension. Continue regular medication. 4. Hyperlipidemia. Continue regular medication. 5. Crohn disease. Continue her regular medication. 6. Deep venous thrombosis prophylaxis. Keep the patient on subcutaneous Lovenox. 7. Discharge plan. We will discharge the patient under the care by the disc pad plate filler and ambulance operations supervisor. MD DANE Mooney/NABILA /[id number]
[2018-12-26] MEDS ORDERED: ENOXAPARIN 30 MG/0.3 ML SYR SC SCH (17:00)
[2018-12-26] MEDS: PANTOPRAZOLE SOD 40 MG TABEC PO SCH (17:18)
[2018-12-26] MEDS: FAMOTIDINE 20 MG TAB PO SCH (17:18)
--- NOTE | 2018-12-26 19:02 | NUR ---
walking rounds done at this time, patient aware of change and in no distress. call gill within reach and bed in lowest position.
[2018-12-26] MEDS: CEFTRIAXONE SOD 1 GM/NS 50 ML 50 ML IV SCH (21:25)
[2018-12-26] MEDS: BUDESONIDE/FORMOTEROL FUMARATE 80/4.5MCG 6.9 GM INH AEROSOL IH SCH (22:05)
[2018-12-27] VITALS: BP 133/74
[2018-12-27 04:00] VITALS: BP 137/82
--- NOTE | 2018-12-27 04:30 | Consultation ---
DATE OF CONSULTATION: 12/26/2018 GI Consult Note REASON FOR CONSULT: Epigastric as well as retrosternal chest pain. HISTORY OF PRESENTING ILLNESS: A 73 years old female, who got admitted with acute onset of substernal pain, chest pain, also radiating into epigastric area for 1 day. No associated shortness of breath. No associated nausea or vomiting. Arrived in the emergency room. Acute cardiac event initially ruled out by negative cardiac markers. The patient empirically being treated with PPI, which seems to have resolved the chest discomfort as well as epigastric pain. Tolerating cardiac diet. The patient has a known history of gastroesophageal reflux disease, as well as gastritis. She is not sure if she ever had any upper endoscopy in the recent past. Denies any lower GI symptoms. REVIEW OF SYSTEMS: Twelve point system reviewed, symptomatology is limited as per HPI. PAST MEDICAL HISTORY: Crohn disease by history, hypothyroidism, chronic anemia, GERD, gastritis, depression, hypertension, CKD stage 3. PAST SURGICAL HISTORY: Colonoscopy 2 years ago. EGD in the remote past. She also has had laparotomy for Crohn disease. FAMILY HISTORY: Noncontributory. SOCIAL HISTORY: , lives with her . No smoking, alcohol, or any illicit drug use. FAMILY HISTORY: Negative for any GI or ANIMAL TAXONOMIST malignancies. Negative for any inflammatory bowel disease. ALLERGIES: NO KNOWN DRUG ALLERGIES. HOME MEDICATION: Amlodipine, budesonide/formoterol, carvedilol, ferrous sulfate, folic acid, losartan, meloxicam, pantoprazole, prednisone, sucralfate, sulfasalazine. INPATIENT MEDICATION REGIMEN: List reviewed as per MAR. PHYSICAL EXAMINATION: VITAL SIGNS: Temperature 97.8, pulse 97, respirations 18, blood pressure 168/83, oxygen saturation 94% on room air. GENERAL: Not in any acute distress. HEENT: Oral mucosa is moist. Anicteric sclerae. CVS: S1, S2 regular. LUNGS: Bilaterally grossly clear. ABDOMEN: Protuberant belly, soft, nondistended, nontender. No mass or hernia. Positive bowel sounds. EXTREMITIES: Trace bilateral leg edema. LABORATORY DATA: Sodium 142, potassium 3.7, chloride 120, bicarb 17, BUN 15, creatinine 1.00. Liver enzymes normal. WBC 8.83, hemoglobin 9.3, hematocrit 29.6, MCV 86.5, platelet count 257. PT 12.7, INR 0.91. Stool occult blood negative. Ultrasound of the abdomen showed a fatty liver. Mild increased renal parenchymal echogenicity, which can be due to medical renal disease. Status post cholecystectomy. IMPRESSION: Dyspepsia, which has resolved with PPI. PLAN: Continue current medical management. I have given the patient my business card. We will follow her in my office within 1 week after discharge. I thank Dr. Miller for allowing me to participate in the care of this patient. Simon Altamirano MD SA/NABILA /[id number]
[2018-12-27 06:31] LABS: ALBUMIN 2.9 g/dL (3.5-5.0); ALBUMIN/GLOBULIN RATIO 0.9 (0.8-2.0); ANION GAP 10.5 mmol/L (8-16); CALCIUM 8.9 mg/dL (8.4-10.2); CREATININE, SERUM 1.32 mg/dL (0.57-1.11); POTASSIUM 3.5 mmol/L (3.5-5.1)
--- NOTE | 2018-12-27 07:20 | NUR ---
REPORT GIVEN TO ONCOMING NURSE, WALKING ROUND DONE.
[2018-12-27 07:22] LABS: BASOPHILS % 0.3 % (0.0-1.0); EOSINOPHILS # (AUTO) 0.3 (0.0-0.4); EOSINOPHILS % 3.7 % (0.0-6.0); HEMATOCRIT 32.3 % (34.2-44.1); HEMOGLOBIN 9.9 g/dL (12.0-16.0); LYMPHOCYTES % 22.5 % (18.0-39.1); MEAN CORPUSCULAR HEMOGLOBIN 26.9 pg (28-32); MEAN CORPUSCULAR HGB CONC 30.7 g/dL (31-35); MEAN CORPUSCULAR VOLUME 87.8 fL (81-99); MONOCYTES # (AUTO) 0.9 (0.2-0.8); MONOCYTES % 10.5 % (4.4-11.3); NEUTROPHILS # (AUTO) 5.6 (2.1-6.9); NEUTROPHILS % 62.3 % (38.7-80.0); PLATELET COUNT 249 x10e3/uL (140-360); RED BLOOD COUNT 3.68 x10e6/uL (3.6-5.1)
[2018-12-27 08:03] VITALS: BP 157/69
[2018-12-27] MEDS: BUDESONIDE/FORMOTEROL FUMARATE 80/4.5MCG 6.9 GM INH AEROSOL IH SCH (08:20)
[2018-12-27] MEDS: SULFASALAZINE 500 MG TAB PO SCH (10:10)
[2018-12-27] MEDS: CARVEDILOL 12.5 MG TAB PO SCH (10:10)
[2018-12-27] MEDS: ASPIRIN 81 MG ENTERIC COATED PO SCH (10:10)
[2018-12-27] MEDS: PANTOPRAZOLE SOD 40 MG TABEC PO SCH (10:10)
[2018-12-27] MEDS: SUCRALFATE 1 GM TAB PO SCH (10:10)
[2018-12-27] MEDS: LOSARTAN POTASSIUM 100 MG TAB PO SCH (10:10)
[2018-12-27] MEDS: FAMOTIDINE 20 MG TAB PO SCH (10:10)
[2018-12-27] MEDS: FOLIC ACID 1 MG TAB PO SCH (10:11)
[2018-12-27] MEDS: PREDNISONE 10 MG TAB PO SCH (10:11)
[2018-12-27] MEDS: AMLODIPINE BESYLATE 5 MG TAB PO SCH (10:11)
[2018-12-27] MEDS: FERROUS SULFATE 325 MG TAB PO SCH (10:11)
--- NOTE | 2018-12-27 11:27 | Progress Note ---
DATE: 12/27/2018 Cardiology Progress Note SUBJECTIVE: Denies chest pain or shortness of breath. Feels better overall. OBJECTIVE: VITAL SIGNS: Temperature 97 degrees, heart rate 71, respiratory rate 18, blood pressure 137/82, and O2 saturation 94% on room air. GENERAL: No acute distress. Alert, active, oriented. NECK: No JVD. CHEST: Clear to auscultation. CARDIOVASCULAR: Regular rate and rhythm. Normal S1, S2. No S3 or S4. ABDOMEN: Soft, nontender. EXTREMITIES: No edema, warm, distal extremities. SKIN: Dry and intact. CARDIOVASCULAR MEDICATION: Reviewed. Budesonide, ceftriaxone, Pepcid, Lovenox 30 mg subcu daily, carvedilol 12.5 mg b.i.d., Protonix 40 mg b.i.d., losartan 100 mg daily, ferrous sulfate 325 mg daily, amlodipine 10 mg daily, aspirin 81 mg daily, nitroglycerin p.r.n., hydralazine p.r.n. STUDIES: Reviewed. White blood cells 8.9, hemoglobin 9.9, and platelets 249. INR 0.9. Sodium 140, potassium 3.5, chloride 114, bicarbonate 19, BUN 19, creatinine 1.32, glucose 97, and calcium 8.9, total bilirubin 0.4, AST 18, ALT 16, alkaline phosphatase 93. Cardiac biomarkers negative x3. BNP 48.5, lipase 25. Telemetry, sinus rhythm. ASSESSMENT: 1. Atypical chest pain, suspect dyspepsia. 2. Crohn disease. 3. Metabolic acidosis. 4. Hypertension. 5. Anemia. 6. Hypothyroidism. 7. Depression and anxiety. RECOMMENDATIONS: 1. Okay to discharge from a cardiovascular standpoint with outpatient followup in 3 to 4 weeks. 2. Continue current antihypertensives and cardiac medications. MD MARIANN Byrd/NABILA /[id number]
[2018-12-27 12:20] VITALS: BP 160/85
--- NOTE | 2018-12-28 09:48 | Discharge Summary ---
CONSULTATIONS: 1. Dr. Woodall, biochemistry specialist. 2. Dr. Simon Altamirano, wood boatbuilder apprentice. FINAL DIAGNOSIS: Substernal chest pain, rule out acute SD by serial cardiac enzyme and troponin. OTHER DIAGNOSES: 1. Hypertension and hyperlipidemia. 2. Gastritis. 3. Gastroesophageal reflux disease by history. 4. Crohn disease by history. 5. Normocytic anemia. 6. Fatty liver. BRIEF HOSPITAL COURSE: 73-year-old female was admitted from the ER with complaints of sudden onset substernal chest pain involving the epigastric area unremitting with regular medication at home. The patient did not have any shortness of breath, nausea, vomiting, or palpitation. She was found having EKG without any significant ST/T changes. Her chest x-ray was also negative for any acute changes. The patient was admitted for ruling out acute SD in view of her comorbidities. She was ruled out of acute SD by serial cardiac injury and troponin. Telemetry was uneventful. Dr. Woodall, biochemistry specialist was consulted. The patient's pain involved her epigastric area. GI consult was done by Dr. Altamirano, wood boatbuilder apprentice. Ultrasound of the abdomen showed fatty liver, status post cholecystectomy without any acute changes. Dr. Woodall recommended the patient follow up with outpatient. She had a stress test two years ago at this hospital, which was negative for any acute changes. Dr. Altamirano also recommended followup as outpatient. The patient's chest pain got resolved. Did not have any recurrence of the chest pain. She was continued on her regular medications. She has mild normocytic anemia. The patient wanted to go home. She was discharged home after clearance by biochemistry specialist and wood boatbuilder apprentice. She was advised to follow with biochemistry specialist and wood boatbuilder apprentice as available and with her PCP, Dr. Martín Miller in one week. The patient was hemodynamically stable at discharge. PHYSICAL EXAMINATION: VITAL SIGNS: Today, blood pressure 157/69, pulse 79, temperature 97, respirations 17, and SpO2 of 97% on room air. GENERAL: Alert, not in acute distress. HEENT: NC/AT. No pallor. No icterus. NECK: No JVD. No carotid bruit. No lymphadenopathy. No thyromegaly. HEART: S1 and S2. Regular. No murmur. LUNGS: Clear to auscultation. ABDOMEN: Soft and nontender. No palpable masses. Bowel sounds active in all quadrants. EXTREMITIES: No edema, cyanosis, or clubbing. NEUROLOGIC: Motor grossly equal on both sides. LABORATORY DATA: CBC; WBC 8.9, hemoglobin 9.9, hematocrit 32.3, platelet 249, and MCV 87, RDW 16, neutrophils 62, and lymphocytes 22. PT 12.7, INR 0.91, PTT 34. D-dimer 312. Chemistry panel; sodium 140, potassium 3.5, chloride 114, CO2 of 19, anion gap 7, BUN 19, creatinine 1.32, glucose 97, calcium 8.9, total bilirubin 0.4, AST 18, ALT 16, alkaline phosphatase 93. CK 45, and CK-MB 1.00. Troponin I 0.002 and 0.001. BNP 48. Total protein 6.1, albumin 2.9, globulin 3.2, total cholesterol 109, LDL 57, HDL 29, and triglycerides 119, and lipase 25. Stool for occult blood is negative. Urinalysis at presentation, protein test is negative for glucose, ketone, leukocyte estrace and nitrites. WBC 6 to 10, RBC none. RADIOLOGICAL DATA: X-ray chest single view at presentation, no acute finding. Abdomen ultrasound, hepatic steatosis, mild increased renal parenchymal echogenicity, suggestive of medical renal disease. Status post cholecystectomy. MEDICATION AT DISCHARGE: The patient was advised to continue her regular medication at home. Please refer to the medication reconciliation sheet. DIET: Heart healthy diet. ACTIVITY: As tolerated. INSTRUCTIONS ON DISCHARGE: Followup with biochemistry specialist and wood boatbuilder apprentice, as available. Follow up with PCP, Dr. Martín Miller in one week. Repeat CBC and CMP in one week. Monitor BP and pulse at home. MD DANE Mooney/NABILA /[id number]
== END 2018-12-27 14:20 | disposition home or self-care (01) ==
LOC: ER 19:39 → ERHOLD 22:07 → IMCU 23:42
PROVIDERS: ADMIT Internal Medicine; ATTEND Internal Medicine
DX: R07.89 Other chest pain (principal); I12.9 Hypertensive chronic kidney disease with stage 1 through stage 4 chronic kidney disease, or unspecified chronic kidney disease; N18.9 Chronic kidney disease, unspecified; E03.9 Hypothyroidism, unspecified; F32.9 Major depressive disorder, single episode, unspecified; K21.9 Gastro-esophageal reflux disease without esophagitis; K50.90 Crohn's disease, unspecified, without complications; Z90.49 Acquired absence of other specified parts of digestive tract; Z82.49 Family history of ischemic heart disease and other diseases of the circulatory system; E87.6 Hypokalemia; N30.00 Acute cystitis without hematuria; R10.13 Epigastric pain; D64.9 Anemia, unspecified; E87.2 Acidosis; E78.5 Hyperlipidemia, unspecified; F41.9 Anxiety disorder, unspecified; K29.70 Gastritis, unspecified, without bleeding; K76.0 Fatty (change of) liver, not elsewhere classified
CPT/HCPCS: 36415 ×3; 71045; 76700; 80053 ×3; 80061; 81001; 82270; 82550 ×2; 82553 ×2; 83690; 83880; 84484 ×2; 85025 ×3; 85379; 85610; 85730; 93005; 99284; G0378 ×3; J0696 ×2; J1650; J2270; J7512 ×2; S0164 ×2

== ENCOUNTER 2019-09-06 05:50 | Observation (INO) | payer MEDICARE, OTHER ==
[~2019-09-06] VITALS: Ht 162.6 cm; Wt 81.2 kg
[~2019-09-06 05:50] MED LIST changes: +MELOXICAM7.5 MG PO
--- OUTSIDE RECORDS SUMMARY | 2019-09-06 05:53 | XMS REPORT ---
Author Author [facility] t Organization [facility] Address [address] [place] [address] Phone Unavailable Care Team Providers Care Cloth Drier Name Role Phone Esther MILLER MD PCP Esther MILLER Attphys Unavailable Germania GARRIDO Attphys Unavailable KEN WEAVER Attphys Unavailable Esther MILLER Admphys Unavailable Payers Payer Name Policy Type Policy Number Effective Date Expiration Date S mitesh [facility] [id number] 2018 00:00:00 [facility] Medicare A & B [id number] 2018 00:00:00 [facility] [id number] 2016 00:00:00 [facility] [id number] 2016 00:00 :00 [facility] [id number] 2016 00:00:00 [facility] [id number] 2016 00:00 :00 [facility] Problems Condition Name Condition Details Condition Category Status Onset Date Resolution Date Last Treatment Date Treating Clinician Comments Source Acute Crohn's disease with intestinal obstruction Acut e Crohn's disease with intestinal obstruction Problem Active 2015-05-20 00:00:00 [facility] Small bowel obstruction SBO (small bowel obstruction) Problem Active 2015-05-20 00:00:00 [facility] Chest pain Chest pain Problem Active [facility] Dyspnea on exertion MOELLER (dyspnea on exertion) Problem Active [facility] Leukocytosis Leukocytosis Problem Active [facility] Pneumonia Pneumonia Problem Active [facility] Urinary tract infection UTI (urinary tract infection) Problem Active [facility] Hypokalemia Hypokalemia Problem Active [facility] Allergies, Adverse Reactions, Alerts Allergy Name Allergy Type Status Severity Reaction(s) Onset Date Inacti ve Date Treating Clinician Comments Source No Known Allergies DA Active U 2016-09-17 00:00:00 [facility] Medications Ordered Medication Name Filled Medication Name Start Date Stop Da te Current Medication? Ordering Clinician Indication Dosage Frequency Signature (SIG) Comments Components Source Levofloxacin (Levaquin) 500 Mg Tablet, 500 Mg Oral Lev ofloxacin (Levaquin) 500 Mg Tablet, 500 Mg Oral 2015-05-24 00:00:00 2016-12-05 00:00:00 Lizette Miller Md 500 Daily [facility] Amlodipine Besylate (Norvasc) 5 Mg Tab Amlodipine Besylate (Norv asc) 5 Mg Tab Yes 10 Daily [facility] Budesonide/Formoterol Fumarate (Symbicor t 80-4.5 Mcg Inhaler) 10.2 Gm Hfa.aer.ad Budesonide/Formoterol Fumarate (Symbicor t 80-4.5 Mcg Inhaler) 10.2 Gm Hfa.aer.ad Yes 2 Twice A Day [facility] Carvedilol 25 Mg Tablet Carvedilol 25 Mg Tablet Yes 12.5 Twice A Day [facility] Ferrous Sulfate 325 Mg Tablet. Ferrous Sulfate 325 Mg Tablet. Yes 325 Daily [facility] Folic Acid 1 Mg Tablet Folic Acid 1 Mg Tablet Yes 1 Daily [facility] Losartan Potassium 25 Mg Tablet Losartan Potassium 25 Mg Tablet Yes 100 Daily [facility] Meloxicam 7.5 Mg Tablet Meloxicam 7.5 Mg Tablet Yes 15 Daily [facility] Pantoprazole Sodium (Protonix) 40 Mg Tablet. Pantopr azole Sodium (Protonix) 40 Mg Tablet. Yes 40 Daily [facility] Prednisone 10 Mg Tab Prednisone 10 Mg Tab Yes 5 Daily [facility] Sucralfate 1 Gm Tablet Sucralfate 1 Gm Tablet Yes 1 Twice A Day [facility] Sulfasalazine 500 Mg Tab Sulfasalazine 500 Mg Tab Yes 1000 Four Times Daily [facility] Hydrochlorothiazide 12.5 Mg Capsule, 12.5 Mg Oral Hydr ochlorothiazide 12.5 Mg Capsule, 12.5 Mg Oral 2018-12-25 00:00:00 No 12.5 Da dinora [facility] Lactobac Cmb #3/Fos/Pantethine (Probioti c & Acidophilus Cap) 1 Each Capsule, 1 Tab Oral Lactobac Cmb #3/Fos/Pantethine (Probioti c & Acidophilus Cap) 1 Each Capsule, 1 Tab Oral 2018-12-25 00:00:00 No 1 Prudencio y [facility] Levalbuterol Tartrate (Xopenex Hfa) 15 Gm Hfa.aer.ad, 2 Ea Inhalation Levalbuterol Tartrate (Xopenex Hfa) 15 Gm Hfa.aer.ad, 2 Ea Inhalation 2018-12-25 00:00:00 No 2 As Needed [facility] Levothyroxine Sodium 50 Mcg Tablet, 50 Mcg Oral Levoth yroxine Sodium 50 Mcg Tablet, 50 Mcg Oral 2018-12-25 00:00:00 No 50 Prudencio y [facility] Tizanidine Hcl 4 Mg Capsule, 2 Mg Oral Tizanidine Hcl 4 Mg Capsu le, 2 Mg Oral 2018-12-25 00:00:00 No 2 Every 12 Hours [facility] Magnesium Oxide 400 Mg Tablet, 400 Mg Oral Magnesium O xide 400 Mg Tablet, 400 Mg Oral 2017-10-26 00:00:00 No 400 Daily [facility] Mesalamine (Apriso) 0.375 Gm Cap.er.24h, 0.375 Gm Oral Mesalamine (Apriso) 0.375 Gm Cap.er.24h, 0.375 Gm Oral 2017-10-26 00:00:00 No .375 Daily [facility] Sucralfate 1 Gm Tablet, 1 Gm Oral Sucralfate 1 Gm Tablet, 1 Gm O ral 2017-10-26 00:00:00 No 1 Before Meals And At Bedtime [facility] Tramadol Hcl (Ultram 50MG*) 50 Mg Tab, 50 Mg Oral Tram adol Hcl (Ultram 50MG*) 50 Mg Tab, 50 Mg Oral 2017-03-20 00:00:00 No 50 Twice A Day as needed for Pain [facility] Levofloxacin (Levaquin) 250 Mg Tablet, 250 Mg Oral Lev ofloxacin (Levaquin) 250 Mg Tablet, 250 Mg Oral 2015-05-24 00:00:00 No 250 D aily [facility] Clopidogrel Bisulfate (Plavix) 75 Mg Tablet, 75 Mg Ora l Clopidogrel Bisulfate (Plavix) 75 Mg Tablet, 75 Mg Oral 2014-11-04 00:00:00 No 75 Daily [facility] Gabapentin 300 Mg Capsule, 300 Mg Oral Gabapentin 300 Mg Capsule , 300 Mg Oral 2014-11-04 00:00:00 No 300 As Needed [facility] Hydrocortisone Acetate (Anusol-Hc) 25 Mg Supp.rect, 25 Mg Rectal Hydrocortisone Acetate (Anusol-Hc) 25 Mg Supp.rect, 25 Mg Rectal 2014-11-04 00:00:00 No 25 Bedtime [facility] Meclizine Hcl 12.5 Mg Tablet, 12.5 Mg Oral Meclizine H cl 12.5 Mg Tablet, 12.5 Mg Oral 2014-11-04 00:00:00 No 12.5 Daily [facility] Olmesartan Medoxomil (Benicar) 40 Mg Tablet, 40 Mg Ora l Olmesartan Medoxomil (Benicar) 40 Mg Tablet, 40 Mg Oral 2014-11-04 00:00:00 No 4 0 Daily [facility] Omeprazole 40 Mg Capsule., 40 Mg Oral Omeprazole 40 Mg Cap zay., 40 Mg Oral 2014-11-04 00:00:00 No 40 Daily [facility] Procedures Procedure Date / Time Performed Performing Clinician Sourc e US abdomen complete 2018-12-26 00:00:00 JAYNE LOCKE [facility] X-ray of chest, single view 2018-12-25 00:00:00 DANIELE GARRIDO [facility] Encounters Start Date/Time End Date/Time Encounter Type Admission Type [facility] Care Department Encounter ID Source 2018-12-25 22:07:00 2018-12-27 14:20:00 Discharged Inpatient (obs) 1 AGUSTIN NELLY [facility] [id number] [facility] 2017-10-31 21:58:00 2017-11-01 01:23:00 Departed Emergency Room 1 JACKELYN GARRIDO [facility] [id number] [facility] 2017-10-26 07:38:00 2017-10-29 13:46:00 Discharged Inpatient (obs) 1 [facility] [id number] [facility] 2017-04-03 09:51:00 2017-04-03 09:51:00 Registered Surgical [facility] [id number] [facility] 2017-03-20 11:09:00 2017-03-20 11:09:00 Registered Surgical Day [facility] [id number] [facility] Results Test Description Test Time Test Comments Results Result Comments Source White Blood Count 2018-12-27 07:23:00 Test Item White Blood Count (test code = 6690-2) 8.97 4.8-10.8 [facility] Blood Ilmry8503-06-14 07:23:00* Test Item Value Reference Range Interpretation Comments Red Blood Count (test code = 789-8) 3.68 3.6-5.1 [facility]emoglobin2019-09-13 07:23:00* Test Item Value Reference Range Interpretation Comments Hemoglobin (test code = 58408-9) 9.9 12.0-16.0 [facility]ematocrit2019-09-13 07:23:00* Test Item Value Reference Range Interpretation Comments Hematocrit (test code = 4544-3) 32.3 34.2-44.1 [facility] Corpuscular Bwlhyk8259-42-38 07:23:00* Test Item Value Reference Range Interpretation Comments Mean Corpuscular Volume (test code = 787-2) 87.8 81-99 [facility] Corpuscular Topyhcpwaf8173-62-02 07:23:00* Test Item Value Reference Range Interpretation Comments Mean Corpuscular Hemoglobin (test code = 785-6) 26.9 28-32 [facility] Corpuscular Hemoglobin Concent 2018-12-27 07:23:00* Test Item Value Reference Range Interpretation Comments Mean Corpuscular Hemoglobin Concent (test code = 786-4) 30.7 31-35 [facility] Cell Distribution Giihr3178-02-85 07:23:00* Test Item Value Reference Range Interpretation Comments Red Cell Distribution Width (test code = 56418-6) 16.0 11.7 -14.4 [facility]Platelet Sledt2357-55-05 07:23:00* Test Item Value Reference Range Interpretation Comments Platelet Count (test code = 777-3) 249 140-360 [facility] MarshallNeutrophils (%) (Auto)2018-12-27 07:23:00 * Test Item Value Reference Range Interpretation Comments Neutrophils (%) (Auto) (test code = 78581-5) 62.3 38.7-80.0 [facility]ymphocytes (%) (Auto)2018-12-27 07:23:00 * Test Item Value Reference Range Interpretation Comments Lymphocytes (%) (Auto) (test code = 736-9) 22.5 18.0-39.1 [facility] Marshall[facility]ocytes (%) (Auto)2018-12-27 07:23:00* Test Item Value Reference Range Interpretation Comments Monocytes (%) (Auto) (test code = 5905-5) 10.5 4.4-11.3 [facility]osinophils (%) (Auto)2018-12-27 07:23:00 * Test Item Value Reference Range Interpretation Comments Eosinophils (%) (Auto) (test code = 713-8) 3.7 0.0-6.0 [facility]ophils (%) (Auto)2018-12-27 07:23:00* Test Item Value Reference Range Interpretation Comments Basophils (%) (Auto) (test code = 706-2) 0.3 0.0-1.0 [facility] MarshallIM GRANULOCYTES %2018-12-27 07:23:00* Test Item Value Reference Range Interpretation Comments IM GRANULOCYTES % (test code = IM GRANULOCYTES %) 0.7 0.0- 1.0 [facility]Neutrophils # (Auto)2018-12-27 07:23:00* Test Item Value Reference Range Interpretation Comments Neutrophils # (Auto) (test code = 751-8) 5.6 2.1-6.9 [facility] MarshallLymphocytes # (Auto)2018-12-27 07:23:00* Test Item Value Reference Range Interpretation Comments Lymphocytes # (Auto) (test code = 89816-9) 2.0 1.0-3.2 [facility] MarshallMonocytes # (Auto)2018-12-27 07:23:00* Test Item Value Reference Range Interpretation Comments Monocytes # (Auto) (test code = 742-7) 0.9 0.2-0.8 [facility]osinophils # (Auto)2018-12-27 07:23:00* Test Item Value Reference Range Interpretation Comments Eosinophils # (Auto) (test code = 711-2) 0.3 0.0-0.4 [facility]ophils # (Auto)2018-12-27 07:23:00* Test Item Value Reference Range Interpretation Comments Basophils # (Auto) (test code = 704-7) 0.0 0.0-0.1 [facility] MarshallAbsolute Immature Granulocyte (auto 2018-12-27 07:23:00* Test Item Value Reference Range Interpretation Comments Absolute Immature Granulocyte (auto (robb t code = Absolute Immature Granulocyte (auto) 0.06 0-0.1 [facility] MarshallB-Type Natriuretic Ftdpcoa3543-00-97 07:07:00* Test Item Value Reference Range Interpretation Comments B-Type Natriuretic Peptide (test code = 01418-3) 48.5 0-100 [facility]odium Ilhcj3923-30-75 06:35:00* Test Item Value Reference Range Interpretation Comments Sodium Level (test code = 2951-2) 140 136-145 [facility] MarshallPotassium Jfahx5430-21-03 06:35:00* Test Item Value Reference Range Interpretation Comments Potassium Level (test code = 2823-3) 3.5 3.5-5.1 [facility] MarshallChloride Qpugy2868-44-09 06:35:00* Test Item Value Reference Range Interpretation Comments Chloride Level (test code = 2075-0) 114 98-107 [facility] MarshallCarbon Dioxide Usgzd2238-60-83 06:35:00* Test Item Value Reference Range Interpretation Comments Carbon Dioxide Level (test code = 2028-9) 19 22-29 [facility] MarshallAnion Sxr5359-54-20 06:35:00* Test Item Value Reference Range Interpretation Comments Anion Gap (test code = 86429-0) 10.5 8-16 [facility] MarshallBlood Urea Nvhibrsz8318-45-34 06:35:00* Test Item Value Reference Range Interpretation Comments Blood Urea Nitrogen (test code = 3094-0) 19 7-26 [facility] MarshallCreatinine2019-09-13 06:35:00* Test Item Value Reference Range Interpretation Comments Creatinine (test code = 2160-0) 1.32 0.57-1.11 [facility] MarshallBUN/Creatinine Jzvwa6596-80-94 06:35:00* Test Item Value Reference Range Interpretation Comments BUN/Creatinine Ratio (test code = 3097-3) 14 6-25 [facility] MarshallEstimat Glomerular Filtration Rate 2018-12-27 06:35:00* Test Item Value Reference Range Interpretation Comments Estimat Glomerular Filtration Rate (test code = 047287340) 39 >60 Ranges were taken from the National Kidney Disease Education Program and the Naomie randolph healthal Kid[employer] Foundation literature.Reference ranges:60 or greater: Txoszw14-57 ( for 3 consecutive months): Chronic kidney disease 15 or less: Kidney failureCHRISTUS [facility] – MarshallGlucose Mnsoi8623-02-78 06:35:00* Test Item Value Reference Range Interpretation Comments Glucose Level (test code = YGV7482) 97 74-118 [facility] MarshallCalcium Evpsp0561-32-00 06:35:00* Test Item Value Reference Range Interpretation Comments Calcium Level (test code = 12666-9) 8.9 8.4-10.2 [facility] MarshallTotal Dmdtzfhzt1265-66-90 06:35:00* Test Item Value Reference Range Interpretation Comments Total Bilirubin (test code = 1975-2) 0.4 0.2-1.2 [facility] MarshallAspartate Amino Transf (AST/SGOT) 2018-12-27 06:35:00* Test Item Value Reference Range Interpretation Comments Aspartate Amino Transf (AST/SGOT) (test code = Aspartate Amino Transf (AST/SGOT)) 18 5-34 [facility] MarshallAlanine Aminotransferase (ALT/SGPT) 2018-12-27 06:35:00* Test Item Value Reference Range Interpretation Comments Alanine Aminotransferase (ALT/SGPT) (test code = 1742-6) 16 0-55 [facility] MarshallTotal Bdarcvh9991-17-37 06:35:00* Test Item Value Reference Range Interpretation Comments Total Protein (test code = 2885-2) 6.1 6.5-8.1 [facility] MarshallAlbumin2019-09-13 06:35:00* Test Item Value Reference Range Interpretation Comments Albumin (test code = 1751-7) 2.9 3.5-5.0 [facility] MarshallGlobulin2019-09-13 06:35:00* Test Item Value Reference Range Interpretation Comments Globulin (test code = 33082-2) 3.2 2.3-3.5 [facility] MarshallAlbumin/Globulin Ssllw4939-89-45 06:35:00 * Test Item Value Reference Range Interpretation Comments Albumin/Globulin Ratio (test code = 1759-0) 0.9 0.8-2.0 [facility] MarshallAlkaline Kzeakeqgjue0986-14-17 06:35:00* Test Item Value Reference Range Interpretation Comments Alkaline Phosphatase (test code = 6768-6) 93 40-150 [facility] MarshallLipase2019-09-13 06:35:00* Test Item Value Reference Range Interpretation Comments Lipase (test code = 3040-3) 25 8-78 [facility] Austintool Occult Gkzja4728-05-30 16:13:00* Test Item Value Reference Range Interpretation Comments Stool Occult Blood (test code = 2335-8) NEGATIVE NEGATIVE [facility] MarshallCreatine Kinase [id number] 14:27:00* Test Item Value Reference Range Interpretation Comments Creatine Kinase MB (test code = 93850-8) 1.00 0-5.0 [facility] MarshallTroponin [id number] 14:27:00* Test Item Value Reference Range Interpretation Comments Troponin I (test code = MIC1025) < 0.001 0-0.300 [facility] MarshallUS ABDOMEN QVZSMBCA9775-97-93 14:18:00 [facility] [address] [place] [address] Patient Name: DANNI GLOVER MR #: [id number] : 1945 Age/Sex: 73/F Req #: [id number] [facility] Physician: NELLY MILLER MD Ordered by: JAYNE LOCKE MD Report #: [id number] Location: [facility] Room/Bed: [place] [address] Procedure: [id number] U S/US ABDOMEN COMPLETE Exam Date: 12/26/18 Exam Time: 1332 REPORT STATUS: Signed EXAM: US ABDOMEN COMPLETE DATE: 12/26/2018 12:00 AM INDICATION: Abdominal pain COMPARISON: CT abdomen pelvis of 10/31/2017 TECHNIQUE: Transverse and long itudinal ortiz scale and color doppler sonographic images of the upper abdomen were obtained. FINDINGS: There is no evidence of fluid or masses seen i n the area of clinical concern in the right lower quadrant. LIVER 11.6 cm in the right midclavicular line. Normal echogenicity of the liver with normal contour, no masses. SPLEEN 8.3 cm in maximum diameter. Normal e chogenicity, no masses. GALLBLADDER Status post cholecystectomy. FRANCESCO E DUCTS No intra nor extra-hepatic biliary dilation. Common bile duct measur es 3 mm PANCREAS: Not visualized due to overlying bowel gas. RIGHT KID LEONARDO: 8.9 cm Echogenicity: Mildly increased Collecting System: No hydronephr osis Stones: None Cyst/Mass: None LEFT KIDNEY: 8.5 cm Echogenicity: Mildly increased Collecting System: No hydronephrosis Stones: None Cyst/ Mass: None VESSELS: Aorta: Not visualized due to overlying bowel gas. I nferior Vena Cava: Visualized portions are normal Main Portal Vein: 1.0 cm, no rmal size with hepatopetal flow. FREE FLUID: None IMPRESSION: Hepati c steatosis. Mildly increased renal parenchymal echogenicity, which can be seen with medical renal disease. Status post cholecystectomy. Si gned by: Diego Archer MD on 12/26/2018 2:21 PM Dictated By: DIEGO ARCHER MD 20 Transcribed By: MADHURI Garcia on 12/26/181420 COPY TO: JAYNE LOCKE MD Creatine Kinase 2018-12-26 14:17:00* Test Item Value Reference Range Interpretation Comments Creatine Kinase (test code = 2157-6) 45 29-168 [facility] MarshallTriglycerides Wlkib9632-55-93 07:12:00* Test Item Value Reference Range Interpretation Comments Triglycerides Level (test code = 2571-8) 116 0-149 [facility] MarshallCholesterol Qhict0931-76-50 07:12:00* Test Item Value Reference Range Interpretation Comments Cholesterol Level (test code = 2093-3) 109 0-199 Less than 200 mg/dL Low Ekgz313 - 239 mg/dL Borderline Mnuc577 m g/dl and greater High Risk [facility] MarshallLDL Qdcbeopwxmi3749-33-27 07:12:00* Test Item Value Reference Range Interpretation Comments LDL Cholesterol (test code = 2089-1) 57 60-130 [facility] MarshallHDL Acjppqnpfwq4967-14-23 07:12:00* Test Item Value Reference Range Interpretation Comments HDL Cholesterol (test code = 2085-9) 29 40-60 [facility] MarshallCholesterol/HDL Ngvam2857-63-25 07:12:00 * Test Item Value Reference Range Interpretation Comments Cholesterol/HDL Ratio (test code = 9830-1) 3.8 3.0-3.6 [facility] MarshallProthrombin Gkvq7018-38-87 21:49:00* Test Item Value Reference Range Interpretation Comments Prothrombin Time (test code = 5902-2) 12.7 11.9-14.5 [facility] MarshallProthromb Time International Ratio 2018-12-25 21:49:00* Test Item Value Reference Range Interpretation Comments Prothromb Time International Ratio (test code = 6301-6) 0.91 Oral Anticoagulant Therapy INR Values:1. Low Intensity Therapy 1.5 - 2.02 . Moderate Intensity Therapy 2.0 - 3.03. High Intensity Therapy(1) 2.5 - 3. 54. High Intensity Therapy(2) 3.0 - 4.05. Panic Value INR > 5.0 [facility] MarshallActivated Partial Thromboplast Time 2018-12-25 21:49:00* Test Item Value Reference Range Interpretation Comments Activated Partial Thromboplast Time (test code = 09614-8) 34.2 23.8-35.5 [facility] MarshallD-Dimer Quantitative (PE/DVT)2018-12-25 21:48:00* Test Item Value Reference Range Interpretation Comments D-Dimer Quantitative (PE/DVT) (test code = 63080-5) 312 0- 400 As with all in vitro diagnostic tests, the test results should be interpreted by the physician in conjunction with clinical findings and other test results.Test results are reported in NEW D-dimer units(ug/mLFEU).[facility] MarshallCHEST SINGLE (NOT PORTABLE)2018-12-25 21:29:00 [place] [address] Patient Name: DANNI GLOVER MR #: [id number] : 1945 Age/Sex: 73/F Req #: [id number] Adm Physician: Ordered by: JACKELYN GARRIDO MD Report #: [id number] Location: ER Room/Bed: Procedure: [id number] DX/CHEST SINGLE (NOT PORTABLE) Exam Date: 12/25/18 Exam Time: 2029 REPORT STATUS: Signed EXAMINATION: CHEST SINGLE (NOT PORTABLE) INDICATION: Chest p ain COMPARISON: Chest radiograph 10/31/2017, chest CT 10/26/2018 FINDINGS: AP view TUBES and LINES: None. LUNGS: Lungs are not well inflated. Lungs are clear. There is no evidence of pneumonia or pulmon ruth edema. PLEURA: No pleural effusion or pneumothorax. HEART AND MED IASTINUM: The cardiomediastinal silhouette is unremarkable. BONES AND SOFT TISSUES: No acute osseous lesion. Soft tissues are unremarkable. Degene rative changes in the shoulders and spine. UPPER ABDOMEN: No free air under the diaphragm. IMPRESSION: No acute thoracic abnormality. Signed by: Fahad Darden DO on 12/25/2018 9:35 PM Dictated By: FAHAD DARDEN DO 34 Tr anscribed By: CLAY on 12/25/182134 COPY TO: JACKELYN GARRIDO MD Urine [id number] 21:22:00* Test Item Value Reference Range Interpretation Comments Urine WBC (test code = 5821-4) 6-10 0-5 [facility] Marshall[facility] [id number] 21:22:00* Test Item Value Reference Range Interpretation Comments Urine RBC (test code = 65546-6) NONE 0-5 [facility] MarshallUrine Lhpxwtcr5156-82-92 21:22:00* Test Item Value Reference Range Interpretation Comments Urine Bacteria (test code = 65445-1) MODERATE NONE [facility] Marshall[facility] Epithelial Evuna9455-84-63 21:22:00 * Test Item Value Reference Range Interpretation Comments Urine Epithelial Cells (test code = 62700-0) FEW NONE [facility] MarshallUrine Tphnw0159-28-96 21:12:00* Test Item Value Reference Range Interpretation Comments Urine Color (test code = 5778-6) YELLOW YELLOW [facility] MarshallUrine Mwtrxqu1686-66-46 21:12:00* Test Item Value Reference Range Interpretation Comments Urine Clarity (test code = 52769-0) SL CLOUDY CLEAR [facility] [id number] 21:12:00 * Test Item Value Reference Range Interpretation Comments Urine Specific [place] (test code = 5811-5) 1.020 1.010-1.02 5 [facility] [id number] 21:12:00* Test Item Value Reference Range Interpretation Comments Urine pH (test code = 20640-0) 6 5-7 [facility] Leukocyte [id number] 21:12:00* Test Item Value Reference Range Interpretation Comments Urine Leukocyte Esterase (test code = 98623-7) SMALL NEGATIV E [facility] [id number] 21:12:00* Test Item Value Reference Range Interpretation Comments Urine Nitrite (test code = 13397-1) NEGATIVE NEGATIVE [facility] [id number] 21:12:00* Test Item Value Reference Range Interpretation Comments Urine Protein (test code = 32160-3) TRACE NEGATIVE [facility] Glucose (UA)2018-12-25 21:12:00* Test Item Value Reference Range Interpretation Comments Urine Glucose (UA) (test code = 89713-8) NEGATIVE NEGATIVE [facility] [id number] 21:12:00* Test Item Value Reference Range Interpretation Comments Urine Ketones (test code = 18534-7) NEGATIVE NEGATIVE [facility] [id number] 21:12:00* Test Item Value Reference Range Interpretation Comments Urine Urobilinogen (test code = 88730-4) 0.2 0.2-1 [facility] [id number] 21:12:00* Test Item Value Reference Range Interpretation Comments Urine Bilirubin (test code = 1977-8) NEGATIVE NEGATIVE [facility] [id number] 21:12:00* Test Item Value Reference Range Interpretation Comments Urine Blood (test code = 58753-8) NEGATIVE NEGATIVE [facility]OL[facility] [id number] 07:22:00 * Test Item Value Reference Range Interpretation Comments SODIUM (test code = NA) 144 mmol/L 136-145 N POTASSIUM (test code = K) 3.7 mmol/L 3.5-5.1 N CHLORIDE (test code = CL) 116.0 mmol/L 98-107 H CARBON DIOXIDE (test code = CO2) 18.0 mmol/L 21-32 L ANION GAP (test code = GAP) 13.7 10-20 N GLUCOSE (test code = GLU) 85 mg/dL 74-106 N BLOOD UREA NITROGEN (test code = BUN) 21 mg/dL 7-18 H GLOMERULAR FILTRATION RATE (test code = GFR) 44 mL/min >=60 Estimated GFR by using Modified MDRD formula.Chronic kidney disease is defined as either kidney damageor GFR <60 mL/min/1.73 m2 for >3 months. CREATININE (test code = CREAT) 1.20 mg/dL 0.55-1.02 H Note change in reference range due to change in reagent. BUN/CREATININE RATIO (test code = BUN/CREA) 17.5 10-20 N CALCIUM (test code = CA) 8.1 mg/dL 8.5-10.1 L URINALYSIS [id number] 01:30:00* Test Item Value Reference Range Interpretation Comments UA COLOR (test code = COLU) YELLOW YELLOW UA APPEARANCE (test code = APPU) SLIGHTLY CLOUDY CLEAR A UA GLUCOSE DIPSTICK (test code = DGLUU) NEGATIVE mg/dL NEGATIVE UA BILIRUBIN DIPSTICK (test code = BILU) NEGATIVE mg/dL NEGATIVE UA KETONE DIPSTICK (test code = KETU) 5 (Trace) mg/dL NEGATIVE A UA SPECIFIC GRAVITY (test code = SGU) 1.018 1.001-1.035 UA BLOOD DIPSTICK (test code = PARAM) 1+ (Small) NEGATIVE A UA PH DIPSTICK (test code = SUJATHA) 5.0 5.0-8.0 UA PROTEIN DIPSTICK (test code = PROU) Negative mg/dL NEGATIVE UA UROBILINIOGEN DIPSTICK (test code = URO) NEGATIVE mg/dL NEGATIVE UA NITRITE DIPSTICK (test code = TANYA) NEGATIVE NEGATIVE UA LEUKOCYTE ESTERASE W REFLEX (test code = LEUUR) 3+ NEG ATIVE A UA WBC (test code = WBCU) >50 #/HPF 0-5 A UA RBC (test code = RBCU) 3-5 #/HPF 0-5 UA EPITHELIAL CELLS (test code = EPIU) FEW per HPF FEW UA MUCUS (test code = MUCU) FEW #/LPF FEW Urine Source? Clean CatchBASIC METABOLIC [id number] 22:54:00* Test Item Value Reference Range Interpretation Comments SODIUM (test code = NA) 141 mmol/L 136-145 N POTASSIUM (test code = K) 3.8 mmol/L 3.5-5.1 N CHLORIDE (test code = CL) 112.0 mmol/L 98-107 H CARBON DIOXIDE (test code = CO2) 18.0 mmol/L 21-32 L ANION GAP (test code = GAP) 14.8 10-20 N GLUCOSE (test code = GLU) 105 mg/dL 74-106 N BLOOD UREA NITROGEN (test code = BUN) 25 mg/dL 7-18 H GLOMERULAR FILTRATION RATE (test code = GFR) 37 mL/min >=60 Estimated GFR by using Modified MDRD formula.Chronic kidney disease is defined as either kidney damageor GFR <60 mL/min/1.73 m2 for >3 months. CREATININE (test code = CREAT) 1.40 mg/dL 0.55-1.02 H Note change in reference range due to change in reagent. BUN/CREATININE RATIO (test code = BUN/CREA) 17.2 10-20 N CALCIUM (test code = CA) 9.1 mg/dL 8.5-10.1 N HEPATIC FUNCTION [id number] 22:54:00* Test Item Value Reference Range Interpretation Comments TOTAL PROTEIN (test code = PROT) 7.7 gram/dL 6.4-8.2 N ALBUMIN (test code = ALB) 3.3 g/dL 3.4-5.0 L GLOBULIN (test code = GLOB) 4.4 gram/dL 2.7-4.2 H ALBUMIN/GLOBULIN RATIO (test code = A/G) 0.8 0.75-1.50 N BILIRUBIN TOTAL (test code = BILT) 0.40 mg/dL 0.0-1.0 N BILIRUBIN DIRECT (test code = BILD) 0.12 mg/dL 0.0-0.20 N SGOT/AST (test code = AST) 17 IUnit/L 15-37 N SGPT/ALT (test code = ALT) 20 IUnit/L 12-78 N ALKALINE PHOSPHATASE TOTAL (test code = ALKP) 123 IUnit/L 45-117 H Note change in reference range due to change in reagent. [id number] 22:54:00* Test Item Value Reference Range Interpretation Comments LIPASE (test code = LIP) 135 U/L 73.0-393.0 N [id number] 22:54:00* Test Item Value Reference Range Interpretation Comments TROPONIN-I (test code = TROPI) <0.015 ng/mL 0-0.045 N B-TYPE NATRIURETIC [id number] 22:52:00* Test Item Value Reference Range Interpretation Comments B-TYPE NATRIURETIC PEPTIDE (test code = BNP) 20.14 pgram/mL 0-100 N - CT ABD PELVIS W/O [id number] 22:32:00 Name: DANNI GLOVER [facility] : 1945 Age/S: 73 / F [address] [facility] Unit #: [id number] Loc: MARITA [place] [address] Phys: Tila Trent MD Acct: [id number] Dis Date: Status: REG ER PHONE #: [phone] Exam Date: 06/24/2018 2140 FAX #: [phone] Reason: epigastric pain EXAMS: CPT CODE: [id number] CT ABD PELVIS W/O CONT 61719 EXAM: CT of the abdomen and pelvis without contrast; INFORMATION: Epigastric pain; TECHNIQUE AND FINDINGS: CT dose reduction protocol; 5 mm cuts through the abdomen and pelvis without contrast. Liver and spleen are of normal size and shape; no focal lesions. Colon interposition between liver and diaphragm. Status post cholecystectomy; no biliary dilatation. Atrophic pancreas without focal lesions. There is a 16 mm nodule in the left adrenal gland, measuring -5 Hounsfield units in density. The kidneys show a slightly lobulated contour; otherwise they are unremarkable; no hydronephrosis, no stones. A small left parapelvic cyst is seen. No hydroureters and no ureteral stones. There are several sigmoid diverticula ; no evidence of diverticulitis or other acute bowel abnormalities. Surgi jaydon suture lines and clips are seen in the ileocecal region. The juna tayler shows a nodular contour and several calcified nodules. A 15 mm fat-co ntaining structure is seen along the right posterior aspect of the uterus. No other pelvic lesions. Lung bases show moderate atelectatic alfredo es. IMPRESSION: 1. No acute abdominal or pelvic abnorma lities. 2. Small incidental left adrenal adenoma. 3. Calcified uterine fibroids. 4. Stable, small fat-containing lesion along the lat eral posterior aspect of the uterus. This was present on a study from J une 2017 and is no clinical significance. It could be a uterine lipoma or potentially a small adnexal dermoid. Electronica lly Signed by Kathy Jin on 06/24/2018 at 2232 Reported and signed by: Jonathan Jin M.D. PAGE 1 Signed Report (CONTINUED) Name: DANNI GLOVER [facility] : 1945 Age/S: 73 / F [address] [facility]: [id number] Loc: [place] [address] Phys : Tila Trent MD Acct: [id number] Dis Date: Status: REG ER PHONE #: [phone] Exam Date: 06/24/20182139 FAX #: [phone] Reason: epigastric pain EXAMS: CPT CODE: [id number] CT ABD PELVIS W/O CONT 54236 <Continued> CC: Technologist:MARISELA GREENE RT(R); Darshana Pollack CTDI: DLP: Trnscb Date/Time: 06/24/2018 (2231) Ness Orig Print D/T: S: 06/24/2018 (2234) CTDI: DLP: PAGE 2 Signed Report BASIC METABOLIC PANEL 2018-06-24 22:20:00* Test Item Value Reference Range Interpretation Comments SODIUM (test code = NA) 141 mmol/L 136-145 N POTASSIUM (test code = K) 3.8 mmol/L 3.5-5.1 N CHLORIDE (test code = CL) 112.0 mmol/L 98-107 H CARBON DIOXIDE (test code = CO2) mmol/L 21-32 ANION GAP (test code = GAP) 10-20 GLUCOSE (test code = GLU) mg/dL 74-106 BLOOD UREA NITROGEN (test code = BUN) mg/dL 7-18 GLOMERULAR FILTRATION RATE (test code = GFR) mL/min >=60 CREATININE (test code = CREAT) mg/dL 0.55-1.02 BUN/CREATININE RATIO (test code = BUN/CREA) 10-20 CALCIUM (test code = CA) mg/dL 8.5-10.1 HEPATIC FUNCTION [id number] 22:20:00* Test Item Value Reference Range Interpretation Comments TOTAL PROTEIN (test code = PROT) gram/dL 6.4-8.2 ALBUMIN (test code = ALB) g/dL 3.4-5.0 GLOBULIN (test code = GLOB) gram/dL 2.7-4.2 ALBUMIN/GLOBULIN RATIO (test code = A/G) 0.75-1.50 BILIRUBIN TOTAL (test code = BILT) mg/dL 0.0-1.0 BILIRUBIN DIRECT (test code = BILD) mg/dL 0.0-0.20 SGOT/AST (test code = AST) IUnit/L 15-37 SGPT/ALT (test code = ALT) IUnit/L 12-78 ALKALINE PHOSPHATASE TOTAL (test code = ALKP) IUnit/L 45-117 [id number] 22:20:00* Test Item Value Reference Range Interpretation Comments LIPASE (test code = LIP) U/L 73.0-393.0 [id number] 22:20:00* Test Item Value Reference Range Interpretation Comments TROPONIN-I (test code = TROPI) ng/mL 0-0.045 - XR CHEST 1 [id number] 22:20:00 [place]: B St: REG Name: DANNI MIRANDA [facility] : [birth year] Age/S: 73/F [address] [facility] Unit #: [id number] Loc: MARITA [place] [address] Phys: Tila Trent MD Acct: [id number] Dis Date: Status: REG ER PHONE #: [phone] Exam Date: 06/24/20182147 FAX #: [phone] Reason: CHEST PAIN EXAMS: CPT CODE: [id number] XR CHEST 1 V 48203 EXAM: Chest X-ray, 1 view; CLINICAL HISTORY: Chest pain; FINDINGS: The lungs are clear, no infiltrates, no edema; no effusions; no pneumothorax; n ormal cardiomediastinal silhouette. IMPRESSION: Normal chest x-ray. at 2220 Reported and signed by: Jonathan Jin M.D. CC: Technologist: MATTEO Sim Date/Time/By: 0 06/24/2018 (2219) : By: Ness Orig Print D/T: S: 06/24/2018 (2222) PAGE 1 Signed Report CBC W/O [id number] 21:48:00* Test Item Value Reference Range Interpretation Comments WHITE BLOOD CELL (test code = WBC) 11.0 K/mm3 4.5-12.5 N RED BLOOD CELL (test code = RBC) 4.11 mill/mm3 3.7-5.2 N HEMOGLOBIN (test code = HGB) 10.8 gram/dL 11.5-15.5 L HEMATOCRIT (test code = HCT) 35.9 % 36.0-46.0 L MEAN CELL VOLUME (test code = MCV) 87.3 fL 80-98 N MEAN CELL HGB (test code = MCH) 26.3 picogram 27.0-33.0 L MEAN CELL HGB CONCETRATION (test code = MCHC) 30.1 gram/dL 33.0-36. 0 L RED CELL DISTRIBUTION WIDTH (test code = RDW) 15.0 % 11.6-16. 2 N PLATELET COUNT (test code = PLT) 254 K/mm3 150-450 N MEAN PLATELET VOLUME (test code = MPV) 9.6 fL 6.7-11.0 N Stress Test - Treadmill [id number] 10:29:[address] [address] Patient Name : DANNI GLOVER MR #: [id number] : 1945 Age/Sex: 72/F Adm Physician : NELLY MILLER MD Admit Date : 10/26/17 Location : MED/SURG Room/Bed : [facility] REPORT: Cardiology Repor t DATE OF STUDY: October 27, 2017 LEXISCAN STRESS TEST INTERPRETA TION: Rest and stress myocardial perfusion with Lexiscan and technetium was performed using SPECT imaging on Ms. Glover. At rest, heart rate was 84, b lood pressure 143/83 and resting EKG showed normal sinus rhythm, otherwise no rmal EKG. After Lexiscan was administered, heart rate juan to 112 beats per minute, blood pressure increased to 151/78. There were no significant ST raphael nges or arrhythmias throughout stress or recovery. Myocardial perfusion reve als normal rest and stress perfusion and gated images demonstrate hyperdynami c left ventricular systolic function with normal regional wall motion, left v entricular ejection fraction more than 70%. CONCLUSION 1. Normal hemod ynamic response to Lexiscan stress. 2. Normal electrocardiographic response to Lexiscan stress. 3. Normal myocardial perfusion at rest and stress. 4. Pres erved left ventricular systolic function with LVEF more than 70%. Job#: [id number] SKI Sign ature Date Dictated By: OLIVER SANCHEZ MD Transcribed By: SMEDS on 11/12/17 <Electronically signed by OLIVER SANCHEZ MD><< Signature on File>>11/13/17 1244 COPY TO: CT ABDOMEN/PELVIS [id number] 00:01:00 [place] [address] Patient Name: DANNI GLOVER MR #: [id number] : 1945 [facility] 72[id number] Re[facility] #: [id number] Adm Physician: Ordered by: JACKELYN GARRIDO MD Report #: [id number] Location: ER Room/Bed: Procedure: CT/CT ABDOMEN/PELVIS W O Exam Date: 10/31/17 Exam Time: 3 REPORT S TATUS: Signed EXAM: CT Abdomen and Pelvis WITHOUT contrast INDICATION: Lo wer abdominal pain. COMPARISON: None. TECHNIQUE: Abdomen and pelvis were sca nned utilizing a multidetector helical scanner from the lung base to the pubic symphysis without administration of IV contrast. Absence of intravenous contr ast decreases sensitivity for detection of focal lesions and vascular patholog y. Coronal and sagittal reformations were obtained. Routine protocol was perfo rmed. IV CONTRAST: None. ORAL CONTRAST: Water RADIATION DOSE: Total DLP: 495.55 mGy*cm Estimated effec tive dose: (DLP x 0.015 x size factor) mSv COMPLICATIONS: None FINDINGS: LINES and TUBES: None. LOWER THORAX: There is bibasilar a telectasis. Calcified granuloma in the left lung base. HEPATOBILIARY: No focal hepatic lesions. No biliary ductal dilation. GALLBLADDER: There are cholecystectomy clips. SPLEEN: No splenomegaly. PANCREAS: No focal masses or ductal dilatation. ADRENALS: No adrenal nodules KIDNEYS/URETERS: No hydronephrosis. No cystic or solid mass lesions. No st ones. GI TRACT: No abnormal distention, wall thickening, or evidence of bow el obstruction. Postsurgical changes related to partial right hemicolect filemon or appendectomy. PELVIC ORGANS/BLADDER: Multi fibroid uterus. There i s at least one lipomatous tumor in the myometrial wall which may correspond to a lipoleiomyoma. LYMPH NODES: No lymphadenopathy. VESSELS: There is m ild atherosclerotic disease in the aorta and major arterial branches. PER ITONEUM / RETROPERITONEUM: No free air or fluid. BONES: There are degenerat richie changes in the lumbar spine. SOFT TISSUES: Unremarkable. IMPRESSION: 1. No acute intra-abdominal or pelvic abnormality. Signed by: Dr. Jose Kilpatrick M.D. on 11/01/2017 12:03 AM Dictated By: JOSE DURON MD 000 3 Transcribed By: CLAY on 11/01/17 0003 COPY TO: JACKELYN GARRIDO MD CHEST SINGLE (PORTABLE)2017-10-31 23:54:00 [place] [address] Patient Name: DANNI GLOVER MR #: [id number] : 1945 Age/Sex: 72/F Req #: [id number] Adm Physician: Ordered by: JACKELYN GARRIDO MD Report #: [id number] Location: ER Room/Bed: Procedure: [id number] DX/CHEST SINGLE (MARCOS BLE) Exam Date: 10/31/17 Exam Time: 2335 REPOR T STATUS: Signed EXAMINATION: CHEST SINGLE (PORTABLE) INDICATION: Shortness of breath COMPARISON: 10/26/2017 FINDINGS: TUBES and LINES: None. LUNGS: Lungs are well inflated. Lungs are clear. There is no evidence of pneumonia or pulmonary edema. PLEURA: No pleur al effusion or pneumothorax. HEART AND MEDIASTINUM: The cardiomediastinal silhouette is unremarkable. BONES AND SOFT TISSUES: No acute osseous l esion. Soft tissues are unremarkable. UPPER ABDOMEN: No free air under t he diaphragm. IMPRESSION: No acute thoracic abnormality. Sig briseida by: Dr. Jose Kilpatrick M.D. on 10/31/2017 11:58 PM Dictated By: JOSE MACDONALD MD 2 358 Transcribed By: CLAY on 10/31/17 1460 COPY TO: ARJUN GARRIDO MD CT CHEST [id number] 10:09:00 [place] [address] Patient Name: DANNI GLOVER MR #: [id number] : 1945 Age/Sex: 72/F Req #: [id number] Adm Physician: NELLY MILLER MD Ordered by: MARCELL JONES MD Report #: [id number] Location: [facility] Room/Bed: [place] [address] Procedure: [id number] C T/CT CHEST W Exam Date: 10/26/17 Exam Time: 0850 REPORT STATUS: Signed PROCEDURE: CT scan of the chest WITH intravenous contrast, using PE protocol. TECHNIQUE: The chest was scanned utilizing a multidetector helical scanner from the lung apex through the level of the a drenal glands after the IV administration of 71 cc of Isovue 370. Coronal an d sagittal multiplanar reformations were obtained. DLP: 542.54 mGy-cm COMPARISON: None. INDICATIONS: WOKE UP AND WAS UNABLE TO BREATHE. S HORTNESS OF BREATH FINDINGS: Lines/tubes: None. Lungs and Airw ays: No CTA evidence of pulmonary emboli. Mosaic attenuation of the lungs co mpatible with air trapping. There is a left lower lobe calcified granuloma. N o nodules or masses. Pleura: The pleural spaces are clear. Heart and mediastinum: There is a 1.6 cm hypodense nodule in the mid right thyroid lob e. Another 8mm hypodense nodule is noted in the inferior right thyroid lobe. Several calcifications in the left thyroid lobe are noted. Mediastinal and le ft hilar calcifications compatible with granulomatous changes. No significan t mediastinal, hilar or axillary lymphadenopathy is seen. The heart and peric ardium are within normal limits. Common origin of the innominate artery and l eft common carotid artery. Soft tissues: Normal. Abdomen: Limited contrast-enhanced views of the upper abdomen show no abnormality within the visualized spleen, pancreas or kidneys. Decreased CT attenuation of the liver compatible with mild steatosis. The adrenal glands are normal. Bones: Degenerative changes of the spine. IMPRESSION: 1. No CT evidence of pulmonary emboli. 2. Mosaic attenuation of the lung blevins compatible with air trapping. 3. Hypodense nodule in the right thyroid lobe-formal thyroid ultra sound would be of benefit. Nain Zamarripa D.O. Dictated by: Nain Zamarripa D.O. on 10/26/2017 at 10:09 Electronically approved b y: Nain Zamarripa D.O. on 10/26/2017 at 10:09 Dictated By: FREDDIE ZAMARRIPA DO [address] [place] scribed By: RYAN on 10/26/17 1009 COPY TO: MARCELL JONES MD CHEST 2 [id number] 06:29:00 [place] [address] Patient Name: DANNI GLOVER MR #: [id number] : 1945 Age/Sex: 72/F Req #: [id number] Adm Physician: Ordered by: MARCELL JONES MD Report #: [id number] Location: ER Room/Bed: Procedure: [id number] DX/CHEST 2 VIEWS Exam Date: 10/26/17 Exam Time: 619 REPORT STATUS: Signed CHEST 2 VIEWS, Technique: CHEST 2 VIEWS Comparison: 11/30/2016 Cl inical history: Shortness of breath DISCUSSION: Normal cardiomediastina l silhouette. Low lung volumes with bibasilar vascular crowding/atelectasis. N o pleural effusion or pneumothorax. IMPRESSION: Low lung volumes without acute abnormality Signed by: Dr Heather Figueroa MD on 10/26/2017 6:38 AM Dictated By: HEATHER FIGUEROA MD 7 Transcribed By: CLAY on 10/26/17637 COPY TO: MARCELL ROSS MD CHEST SINGLE (PORTABLE) [place] [address] Patient Name: DANNI GLOVER MR #: [id number] : 1945 Age/Sex: 71/F Req #: [id number] Adm Physician: Ordered by: JACKELYN GARRIDO MD Report #: [id number] Location: ER Room/Bed: Procedure: [id number] DX/CHEST SINGLE (PORTABL E) Exam Date: 11/30/16 Exam Time: 1911 REPORT STATUS: Signed Examination: Single AP view of the chest. COMPARISON: Abd omen acute series 05/22/2015 INDICATION: Breathing disorder, fever I MPRESSION: 1. Lines and Tubes: None 2. Ill-defined airspace opacity in the right upper lobe outlined by the minor fissure, likely representing pneum onia in the setting of fever and shortness of breath. 3. Cardiomediastinal silhouette is normal. Pulmonary vasculature is normal. 4. No acute bony abn ormalities. Signed by: Dr. Luis Manuel Mckee M.D. on 11/30/2016 7:40 PM Dictated By: LUIS MANUEL MCKEE MD 39 Transcribed By: CLAY on 11/30/161939 COPY TO: JACKELYN BEDOYA MD
[2019-09-06] MEDS ORDERED: SODIUM CHLORIDE 0.9% 1000ML 1,000 ML IV STA (05:55)
--- NOTE | 2019-09-06 05:58 | Emergency Department Note ---
History of Present Illnes History of Present Illness History of Present Illness This is a 74 year old female woke up this AM with generalized weakness since this AM. Denies CP, SOB, N/V or fevers . Prior h/o of hypokalemia. 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 Any updates have been documented here. Past Medical History Recent Fever: No Clinical Suspicion of Infectio: No New/Unexplained Change in Ment: No Past Medical History: Hypertension, Hypothyroidism, Depression, GERD Other Medical History: CROHNES KIDNEY DISEASE HIGH CHOLESTROL REFLUX Past Surgical History: Cholecysctectomy, Knee Replacement, Hernia Repair Other Surgery: R KNEE R ANKLE HERNIA Social History Smoking Cessation: Never Smoker Alcohol Use: None Any Illegal Drug Use: No Other Last Tetanus: OOD Review of Systems Review of Systems Constitutional: no symptoms EENTM: no symptoms Cardiovascular: no symptoms Respiratory: no symptoms Gastrointestinal: no symptoms Genitourinary: no symptoms Musculoskeletal: no symptoms Neurological: weakness Psychological: no symptoms Endocrine: no symptoms Hematological/Lymphatic: no symptoms Review of other systems All other systems reviewed and negative. Physical Exam Related Data Allergies: Coded Allergies: No Known Allergies (Unverified , 11/30/16) Vital signs reviewed: Yes Physical Exam CONSTITUTIONAL Constitutional: well-developed, well-nourished HENT HENT: normocephalic, atraumatic, oropharynx clear/moist, nose normal HENT L/R: left ext ear normal, right ext ear normal EYES Eyes: PERRL, conjunctivae normal NECK Neck: ROM normal PULMONARY Pulmonary: effort normal, breath sounds normal CARDIOVASCULAR Cardiovascular: regular rhythm, heart sounds normal, capillary refill normal, normal rate GASTROINTESTINAL Abdominal: soft, nontender, bowel sounds normal GENITOURINARY Genitourinary: exam deferred SKIN Skin: warm, dry MUSCULOSKELETAL Musculoskeletal: ROM normal NEUROLOGICAL Neurological: alert, oriented x 3, no gross motor or sensory deficits PSYCHOLOGICAL Psychological: mood/affect normal, judgement normal Results Laboratory Laboratory Laboratory Tests Test 09/06/19 05:55 White Blood Count 11.70 x10e3/uL (4.8-10.8) Red Blood Count 4.19 x10e6/uL (3.6-5.1) Hemoglobin 11.5 g/dL (12.0-16.0) Hematocrit 37.4 % (34.2-44.1) Mean Corpuscular Volume 89.3 fL (81-99) Mean Corpuscular Hemoglobin 27.4 pg (28-32) Mean Corpuscular Hemoglobin Concent 30.7 g/dL (31-35) Red Cell Distribution Width 15.6 % (11.7-14.4) Platelet Count 287 x10e3/uL (140-360) Neutrophils (%) (Auto) 70.9 % (38.7-80.0) Lymphocytes (%) (Auto) 16.1 % (18.0-39.1) Monocytes (%) (Auto) 8.5 % (4.4-11.3) Eosinophils (%) (Auto) 3.3 % (0.0-6.0) Basophils (%) (Auto) 0.3 % (0.0-1.0) Neutrophils # (Auto) 8.3 (2.1-6.9) Lymphocytes # (Auto) 1.9 (1.0-3.2) Monocytes # (Auto) 1.0 (0.2-0.8) Eosinophils # (Auto) 0.4 (0.0-0.4) Basophils # (Auto) 0.0 (0.0-0.1) Absolute Immature Granulocyte (auto 0.10 x10e3/uL (0-0.1) Sodium Level 142 mmol/L (136-145) Potassium Level 3.9 mmol/L (3.5-5.1) Chloride Level 112 mmol/L (98-107) Carbon Dioxide Level 19 mmol/L (22-29) Anion Gap 14.9 mmol/L (8-16) Blood Urea Nitrogen 19 mg/dL (7-26) Creatinine 1.36 mg/dL (0.57-1.11) Estimat Glomerular Filtration Rate 38 ML/MIN (60-) BUN/Creatinine Ratio 14 (6-25) Glucose Level 105 mg/dL (74-118) Calcium Level 9.2 mg/dL (8.4-10.2) Total Bilirubin 0.7 mg/dL (0.2-1.2) Aspartate Amino Transf (AST/SGOT) 58 IU/L (5-34) Alanine Aminotransferase (ALT/SGPT) 45 IU/L (0-55) Alkaline Phosphatase 169 IU/L (40-150) Creatine Kinase 39 IU/L (29-168) Creatine Kinase MB 0.60 ng/mL (0-5.0) Troponin I < 0.001 ng/mL (0-0.300) B-Type Natriuretic Peptide 33.2 pg/mL (0-100) Total Protein 7.1 g/dL (6.5-8.1) Albumin 3.5 g/dL (3.5-5.0) Globulin 3.6 g/dL (2.3-3.5) Albumin/Globulin Ratio 1.0 (0.8-2.0) Lab results reviewed: Yes Imaging Imaging results reviewed: Yes Impressions [place] [address] Patient Name: DANNI GLOVER MR #: [id number] : 1945 Age/Sex: 74/F Req #: [id number] Adm Physician: JESSIKA DEAN MD Ordered by: ROD NOBLE DO Report #: [id number] Location: [facility] Room/Bed: [place] [address] Procedure: [id number] DX/CHEST SINGLE (PORTABLE) Exam Date: Exam Time: REPORT STATUS: Signed Examination: Single AP view of the chest. COMPARISON: AP chest 12/25/2018 INDICATION: Lightheadedness, lethargy IMPRESSION: 1. Lines and Tubes: None 2. Hypoinflated lungs. Bilateral basal patchy opacities, likely reflecting atelectasis. No consolidation or effusion. 3. Cardiomediastinal silhouette is normal. Central pulmonary venous crowding due to low lung volumes. 4. No acute bony abnormalities. Signed by: Dr. Raeann Farah M.D. on 09/06/2019 7:37 AM Dictated By: RAEANN FARAH MD 6 Transcribed By: CLAY on 09/06/19736 COPY TO: ROD NOBLE DO~ Procedures 12 Lead ECG Interpretation Ip Counsel: Interpreted by ED physician Date: September 06, 2019 Time: 06:01 Prior [employer] tracings: reviewed Rhythm: sinus rhythm Rate: normal BPM: 92 QRS axis: normal ST segments normal: Yes T waves normal: Yes Other findings: no other findings Clinical Impression: normal ECG Assessment & Plan Assessment & Plan Final Impression: (1) Trigeminy (2) Weakness (3) Abnormal renal finding Assessment & Plan Patient noted to be having PVC's with increased frequency. Plan to admit for cardiology consult Depart Disposition: ADMITTED Last Vital Signs Date Time Temp Pulse Resp B/P (MAP) Pulse Ox O2 Delivery O2 Flow Rate FiO2 09/06/19 11:33 97.9 83 22 97 Room Air 09/06/19 09:05 148/61 (90) Home Meds Reported Medications Clopidogrel Bisulfate* (PLAVIX) 75 Mg Tablet, 75 MG PO DAILY, #30 TAB 09/06/19 Levothyroxine Sodium (LEVOTHYROXINE SODIUM) 50 Mcg Tablet, 50 MCG PO DAILY, #30 TAB 09/06/19 Sucralfate (SUCRALFATE) 1 Gm Tablet, 1 GM PO BID, TAB 12/25/18 Meloxicam (MELOXICAM) 7.5 Mg Tablet, 15 MG PO DAILY, #30 TAB 12/25/18 Budesonide/Formoterol Fumarate (SYMBICORT 80-4.5 MCG INHALER) 10.2 Gm Hfa.aer.ad, 2 EA INH BID, EACH 10/29/17 Amlodipine Besylate (NORVASC) 5 Mg Tab, 10 MG PO DAILY, #30 TAB 10/26/17 Sulfasalazine (SULFASALAZINE) 500 Mg Tab, 1000 MG PO QID, #30 TAB 10/26/17 Pantoprazole Sodium* (PROTONIX) 40 Mg Tablet.dr, 40 MG PO DAILY, TAB 11/04/14 Folic Acid (FOLIC ACID) 1 Mg Tablet, 1 MG PO DAILY, #30 TAB 11/04/14 Losartan Potassium (LOSARTAN POTASSIUM) 25 Mg Tablet, 100 MG PO DAILY 11/04/14 Prednisone (PREDNISONE) 10 Mg Tab, 5 MG PO DAILY, TAB 11/04/14 Ferrous Sulfate (FERROUS SULFATE) 325 Mg Tablet.dr, 325 MG PO DAILY 11/03/14 Carvedilol (CARVEDILOL) 25 Mg Tablet, 12.5 MG PO BID 11/03/14 Medications in the ED Sodium Chloride 1,000 ml @ 0 mls/hr Q0M STAT IV Last administered on 09/06/19at 06:08; Admin Dose 999 MLS/HR; Start 09/06/19 at 05:55; Stop 09/06/19 at 05:56; Status DC ROD NOBLE DO September 06, 2019 05:58
[2019-09-06 06:25] LABS: BASOPHILS % 0.3 % (0.0-1.0); EOSINOPHILS # (AUTO) 0.4 (0.0-0.4); EOSINOPHILS % 3.3 % (0.0-6.0); HEMATOCRIT 37.4 % (34.2-44.1); HEMOGLOBIN 11.5 g/dL (12.0-16.0); LYMPHOCYTES # (AUTO) 1.9 (1.0-3.2); LYMPHOCYTES % 16.1 % (18.0-39.1); MEAN CORPUSCULAR HEMOGLOBIN 27.4 pg (28-32); MEAN CORPUSCULAR HGB CONC 30.7 g/dL (31-35); MEAN CORPUSCULAR VOLUME 89.3 fL (81-99); MONOCYTES % 8.5 % (4.4-11.3); NEUTROPHILS # (AUTO) 8.3 (2.1-6.9); NEUTROPHILS % 70.9 % (38.7-80.0); PLATELET COUNT 287 x10e3/uL (140-360); RED BLOOD COUNT 4.19 x10e6/uL (3.6-5.1); RED CELL DISTRIBUTION WIDTH 15.6 % (11.7-14.4)
[2019-09-06] MEDS ORDERED: PLAVIX75 MG PO (06:29)
[2019-09-06] MEDS ORDERED: LEVOTHYROXINE50 MCG PO (06:29)
[2019-09-06 06:47] LABS: ALANINE AMINOTRANSFERASE 45 IU/L (0-55); ALBUMIN 3.5 g/dL (3.5-5.0); ALKALINE PHOSPHATASE 169 IU/L (40-150); ANION GAP 14.9 mmol/L (8-16); BLOOD UREA NITROGEN 19 mg/dL (7-26); BUN/CREATININE RATIO 14 (6-25); CALCIUM 9.2 mg/dL (8.4-10.2); CARBON DIOXIDE 19 mmol/L (22-29); CHLORIDE 112 mmol/L (98-107); CREATINE KINASE 39 IU/L (29-168); CREATININE, SERUM 1.36 mg/dL (0.57-1.11); EST GLOMERULAR FILTRATION RATE 38 ML/MIN (60-); GLUCOSE 105 mg/dL (74-118); POTASSIUM 3.9 mmol/L (3.5-5.1); SODIUM 142 mmol/L (136-145)
[2019-09-06] MEDS ORDERED: ASPIRIN 81 MG CHEW TAB PO ONE (07:00)
[2019-09-06] MEDS ORDERED: SODIUM CHLORIDE 0.9% 1000ML 1,000 ML IV SCH (07:00)
--- OUTSIDE RECORDS SUMMARY | 2019-09-06 07:10 | XMS REPORT ---
Author Author [facility] t Organization [facility] Address 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 Name Role Phone Esther MILLER MD PCP Esther MILLER Attphys Unavailable Germania GARRIDO Attphys Unavailable KEN WEAVER Attphys Unavailable Esther MILLER Admphys Unavailable Payers Payer Name Policy Type Policy Number Effective Date Expiration Date S mitesh [facility] [id number] 2018 00:00:00 [facility] Medicare A & B [id number] 2018 00:00:00 [facility] [id number] 2016 00:00:00 [facility] [id number] 2016 00:00 :00 [facility] [id number] 2016 00:00:00 [facility] [id number] 2016 00:00 :00 [facility] Problems Condition Name Condition Details Condition Category Status Onset Date Resolution Date Last Treatment Date Treating Clinician Comments Source Acute Crohn's disease with intestinal obstruction Acut e Crohn's disease with intestinal obstruction Problem Active 2015-05-20 00:00:00 [facility] Small bowel obstruction SBO (small bowel obstruction) Problem Active 2015-05-20 00:00:00 [facility] Chest pain Chest pain Problem Active [facility] Dyspnea on exertion MOELLER (dyspnea on exertion) Problem Active [facility] Leukocytosis Leukocytosis Problem Active [facility] Pneumonia Pneumonia Problem Active [facility] Urinary tract infection UTI (urinary tract infection) Problem Active [facility] Hypokalemia Hypokalemia Problem Active [facility] Allergies, Adverse Reactions, Alerts Allergy Name Allergy Type Status Severity Reaction(s) Onset Date Inacti ve Date Treating Clinician Comments Source No Known Allergies DA Active U 2016-09-17 00:00:00 [facility] Medications Ordered Medication Name Filled Medication Name Start Date Stop Da te Current Medication? Ordering Clinician Indication Dosage Frequency Signature (SIG) Comments Components Source Levofloxacin (Levaquin) 500 Mg Tablet, 500 Mg Oral Lev ofloxacin (Levaquin) 500 Mg Tablet, 500 Mg Oral 2015-05-24 00:00:00 2016-12-05 00:00:00 Lizette Miller Md 500 Daily [facility] Amlodipine Besylate (Norvasc) 5 Mg Tab Amlodipine Besylate (Norv asc) 5 Mg Tab Yes 10 Daily [facility] Budesonide/Formoterol Fumarate (Symbicor t 80-4.5 Mcg Inhaler) 10.2 Gm Hfa.aer.ad Budesonide/Formoterol Fumarate (Symbicor t 80-4.5 Mcg Inhaler) 10.2 Gm Hfa.aer.ad Yes 2 Twice A Day [facility] Carvedilol 25 Mg Tablet Carvedilol 25 Mg Tablet Yes 12.5 Twice A Day [facility] Ferrous Sulfate 325 Mg Tablet. Ferrous Sulfate 325 Mg Tablet. Yes 325 Daily [facility] Folic Acid 1 Mg Tablet Folic Acid 1 Mg Tablet Yes 1 Daily [facility] Losartan Potassium 25 Mg Tablet Losartan Potassium 25 Mg Tablet Yes 100 Daily [facility] Meloxicam 7.5 Mg Tablet Meloxicam 7.5 Mg Tablet Yes 15 Daily [facility] Pantoprazole Sodium (Protonix) 40 Mg Tablet. Pantopr azole Sodium (Protonix) 40 Mg Tablet. Yes 40 Daily [facility] Prednisone 10 Mg Tab Prednisone 10 Mg Tab Yes 5 Daily [facility] Sucralfate 1 Gm Tablet Sucralfate 1 Gm Tablet Yes 1 Twice A Day [facility] Sulfasalazine 500 Mg Tab Sulfasalazine 500 Mg Tab Yes 1000 Four Times Daily [facility] Hydrochlorothiazide 12.5 Mg Capsule, 12.5 Mg Oral Hydr ochlorothiazide 12.5 Mg Capsule, 12.5 Mg Oral 2018-12-25 00:00:00 No 12.5 Da dinora [facility] Lactobac Cmb #3/Fos/Pantethine (Probioti c & Acidophilus Cap) 1 Each Capsule, 1 Tab Oral Lactobac Cmb #3/Fos/Pantethine (Probioti c & Acidophilus Cap) 1 Each Capsule, 1 Tab Oral 2018-12-25 00:00:00 No 1 Prudencio y [facility] Levalbuterol Tartrate (Xopenex Hfa) 15 Gm Hfa.aer.ad, 2 Ea Inhalation Levalbuterol Tartrate (Xopenex Hfa) 15 Gm Hfa.aer.ad, 2 Ea Inhalation 2018-12-25 00:00:00 No 2 As Needed [facility] Levothyroxine Sodium 50 Mcg Tablet, 50 Mcg Oral Levoth yroxine Sodium 50 Mcg Tablet, 50 Mcg Oral 2018-12-25 00:00:00 No 50 Prudencio y [facility] Tizanidine Hcl 4 Mg Capsule, 2 Mg Oral Tizanidine Hcl 4 Mg Capsu le, 2 Mg Oral 2018-12-25 00:00:00 No 2 Every 12 Hours [facility] Magnesium Oxide 400 Mg Tablet, 400 Mg Oral Magnesium O xide 400 Mg Tablet, 400 Mg Oral 2017-10-26 00:00:00 No 400 Daily [facility] Mesalamine (Apriso) 0.375 Gm Cap.er.24h, 0.375 Gm Oral Mesalamine (Apriso) 0.375 Gm Cap.er.24h, 0.375 Gm Oral 2017-10-26 00:00:00 No .375 Daily [facility] Sucralfate 1 Gm Tablet, 1 Gm Oral Sucralfate 1 Gm Tablet, 1 Gm O ral 2017-10-26 00:00:00 No 1 Before Meals And At Bedtime [facility] Tramadol Hcl (Ultram 50MG*) 50 Mg Tab, 50 Mg Oral Tram adol Hcl (Ultram 50MG*) 50 Mg Tab, 50 Mg Oral 2017-03-20 00:00:00 No 50 Twice A Day as needed for Pain [facility] Levofloxacin (Levaquin) 250 Mg Tablet, 250 Mg Oral Lev ofloxacin (Levaquin) 250 Mg Tablet, 250 Mg Oral 2015-05-24 00:00:00 No 250 D aily [facility] Clopidogrel Bisulfate (Plavix) 75 Mg Tablet, 75 Mg Ora l Clopidogrel Bisulfate (Plavix) 75 Mg Tablet, 75 Mg Oral 2014-11-04 00:00:00 No 75 Daily [facility] Gabapentin 300 Mg Capsule, 300 Mg Oral Gabapentin 300 Mg Capsule , 300 Mg Oral 2014-11-04 00:00:00 No 300 As Needed [facility] Hydrocortisone Acetate (Anusol-Hc) 25 Mg Supp.rect, 25 Mg Rectal Hydrocortisone Acetate (Anusol-Hc) 25 Mg Supp.rect, 25 Mg Rectal 2014-11-04 00:00:00 No 25 Bedtime [facility] Meclizine Hcl 12.5 Mg Tablet, 12.5 Mg Oral Meclizine H cl 12.5 Mg Tablet, 12.5 Mg Oral 2014-11-04 00:00:00 No 12.5 Daily [facility] Olmesartan Medoxomil (Benicar) 40 Mg Tablet, 40 Mg Ora l Olmesartan Medoxomil (Benicar) 40 Mg Tablet, 40 Mg Oral 2014-11-04 00:00:00 No 4 0 Daily [facility] Omeprazole 40 Mg Capsule., 40 Mg Oral Omeprazole 40 Mg Cap zay., 40 Mg Oral 2014-11-04 00:00:00 No 40 Daily [facility] Procedures Procedure Date / Time Performed Performing Clinician Sourc e US abdomen complete 2018-12-26 00:00:00 JAYNE LOCKE [facility] X-ray of chest, single view 2018-12-25 00:00:00 DANIELE GARRIDO [facility] Encounters Start Date/Time End Date/Time Encounter Type Admission Type [facility] Care Department Encounter ID Source 2018-12-25 22:07:00 2018-12-27 14:20:00 Discharged Inpatient (obs) 1 AGUSTIN NELLY [facility] [id number] [facility] 2017-10-31 21:58:00 2017-11-01 01:23:00 Departed Emergency Room 1 JACKELYN GARRIDO [facility] [id number] [facility] 2017-10-26 07:38:00 2017-10-29 13:46:00 Discharged Inpatient (obs) 1 AGUSTIN [facility] [id number] [facility] 2017-04-03 09:51:00 2017-04-03 09:51:00 Registered Surgical [facility] [id number] [facility] 2017-03-20 11:09:00 2017-03-20 11:09:00 Registered Surgical Day [facility] [id number] [facility] Results Test Description Test Time Test Comments Results Result Comments Source White Blood Count 2018-12-27 07:23:00 Test Item White Blood Count (test code = 6690-2) 8.97 4.8-10.8 [facility] [id number] 07:23:00* Test Item Value Reference Range Interpretation Comments Red Blood Count (test code = 789-8) 3.68 3.6-5.1 [facility]2019-09-13 07:23:00* Test Item Value Reference Range Interpretation Comments Hemoglobin (test code = 31560-8) 9.9 12.0-16.0 [facility]Hematocrit2019-09-13 07:23:00* Test Item Value Reference Range Interpretation Comments Hematocrit (test code = 4544-3) 32.3 34.2-44.1 [facility]Mean Corpuscular [id number] 07:23:00* Test Item Value Reference Range Interpretation Comments Mean Corpuscular Volume (test code = 787-2) 87.8 81-99 [facility] Corpuscular Gqvjfcynlx1155-43-69 07:23:00* Test Item Value Reference Range Interpretation Comments Mean Corpuscular Hemoglobin (test code = 785-6) 26.9 28-32 [facility] Corpuscular Hemoglobin Concent 2018-12-27 07:23:00* Test Item Value Reference Range Interpretation Comments Mean Corpuscular Hemoglobin Concent (test code = 786-4) 30.7 31-35 [facility] Cell Distribution [id number] 07:23:00* Test Item Value Reference Range Interpretation Comments Red Cell Distribution Width (test code = 63667-0) 16.0 11.7 -14.4 [facility] HospitalPlatelet [id number] 07:23:00* Test Item Value Reference Range Interpretation Comments Platelet Count (test code = 777-3) 249 140-360 [facility]Neutrophils (%) (Auto)2018-12-27 07:23:00 * Test Item Value Reference Range Interpretation Comments Neutrophils (%) (Auto) (test code = 55447-9) 62.3 38.7-80.0 [facility] HospitalLymphocytes (%) (Auto)2018-12-27 07:23:00 * Test Item Value Reference Range Interpretation Comments Lymphocytes (%) (Auto) (test code = 736-9) 22.5 18.0-39.1 [facility]Monocytes (%) (Auto)2018-12-27 07:23:00* Test Item Value Reference Range Interpretation Comments Monocytes (%) (Auto) (test code = 5905-5) 10.5 4.4-11.3 [facility]Eosinophils (%) (Auto)2018-12-27 07:23:00 * Test Item Value Reference Range Interpretation Comments Eosinophils (%) (Auto) (test code = 713-8) 3.7 0.0-6.0 [facility]Basophils (%) (Auto)2018-12-27 07:23:00* Test Item Value Reference Range Interpretation Comments Basophils (%) (Auto) (test code = 706-2) 0.3 0.0-1.0 [facility] HospitalIM GRANULOCYTES %2018-12-27 07:23:00* Test Item Value Reference Range Interpretation Comments IM GRANULOCYTES % (test code = IM GRANULOCYTES %) 0.7 0.0- 1.0 [facility]Neutrophils # (Auto)2018-12-27 07:23:00* Test Item Value Reference Range Interpretation Comments Neutrophils # (Auto) (test code = 751-8) 5.6 2.1-6.9 [facility]Lymphocytes # (Auto)2018-12-27 07:23:00* Test Item Value Reference Range Interpretation Comments Lymphocytes # (Auto) (test code = 70208-8) 2.0 1.0-3.2 [facility]Monocytes # (Auto)2018-12-27 07:23:00* Test Item Value Reference Range Interpretation Comments Monocytes # (Auto) (test code = 742-7) 0.9 0.2-0.8 [facility]Eosinophils # (Auto)2018-12-27 07:23:00* Test Item Value Reference Range Interpretation Comments Eosinophils # (Auto) (test code = 711-2) 0.3 0.0-0.4 [facility]Basophils # (Auto)2018-12-27 07:23:00* Test Item Value Reference Range Interpretation Comments Basophils # (Auto) (test code = 704-7) 0.0 0.0-0.1 [facility] HospitalAbsolute Immature Granulocyte (auto 2018-12-27 07:23:00* Test Item Value Reference Range Interpretation Comments Absolute Immature Granulocyte (auto (robb t code = Absolute Immature Granulocyte (auto) 0.06 0-0.1 [facility] HospitalB-Type Natriuretic Jjwmowt4197-29-08 07:07:00* Test Item Value Reference Range Interpretation Comments B-Type Natriuretic Peptide (test code = 80616-6) 48.5 0-100 [facility] Planoodium Oetra8469-34-46 06:35:00* Test Item Value Reference Range Interpretation Comments Sodium Level (test code = 2951-2) 140 136-145 [facility] HospitalPotassium Hpqkj2544-22-95 06:35:00* Test Item Value Reference Range Interpretation Comments Potassium Level (test code = 2823-3) 3.5 3.5-5.1 [facility] HospitalChloride Jbaaa3951-77-89 06:35:00* Test Item Value Reference Range Interpretation Comments Chloride Level (test code = 2075-0) 114 98-107 [facility] HospitalCarbon Dioxide Qngjs7547-32-52 06:35:00* Test Item Value Reference Range Interpretation Comments Carbon Dioxide Level (test code = 2028-9) 19 22-29 [facility] HospitalAnion [id number] 06:35:00* Test Item Value Reference Range Interpretation Comments Anion Gap (test code = 76416-9) 10.5 8-16 [facility] HospitalBlood Urea Efwzblfb4986-23-04 06:35:00* Test Item Value Reference Range Interpretation Comments Blood Urea Nitrogen (test code = 3094-0) 19 7-26 [facility] HospitalCreatinine2019-09-13 06:35:00* Test Item Value Reference Range Interpretation Comments Creatinine (test code = 2160-0) 1.32 0.57-1.11 [facility] HospitalBUN/Creatinine Wbjbk8553-02-38 06:35:00* Test Item Value Reference Range Interpretation Comments BUN/Creatinine Ratio (test code = 3097-3) 14 6-25 [facility] HospitalEstimat Glomerular Filtration Rate 2018-12-27 06:35:00* Test Item Value Reference Range Interpretation Comments Estimat Glomerular Filtration Rate (test code = 950033869) 39 >60 Ranges were taken from the National Kidney Disease Education Program and the [facility] Kid[facility] Foundation literature.Reference ranges:60 or greater: Tgxkjh79-42 ( for 3 consecutive months): Chronic kidney disease 15 or less: Kidney failureHemphill County HospitalGlucose Cxkgg5801-88-92 06:35:00* Test Item Value Reference Range Interpretation Comments Glucose Level (test code = SGB0094) 97 74-118 [facility] HospitalCalcium Jogvr7771-82-44 06:35:00* Test Item Value Reference Range Interpretation Comments Calcium Level (test code = 53066-8) 8.9 8.4-10.2 [facility] HospitalTotal Ywtcphcqk9813-34-63 06:35:00* Test Item Value Reference Range Interpretation Comments Total Bilirubin (test code = 1975-2) 0.4 0.2-1.2 [facility] HospitalAspartate Amino Transf (AST/SGOT) 2018-12-27 06:35:00* Test Item Value Reference Range Interpretation Comments Aspartate Amino Transf (AST/SGOT) (test code = Aspartate Amino Transf (AST/SGOT)) 18 5-34 [facility] HospitalAlanine Aminotransferase (ALT/SGPT) 2018-12-27 06:35:00* Test Item Value Reference Range Interpretation Comments Alanine Aminotransferase (ALT/SGPT) (test code = 1742-6) 16 0-55 [facility] HospitalTotal Lofltih5404-54-61 06:35:00* Test Item Value Reference Range Interpretation Comments Total Protein (test code = 2885-2) 6.1 6.5-8.1 [facility] HospitalAlbumin2019-09-13 06:35:00* Test Item Value Reference Range Interpretation Comments Albumin (test code = 1751-7) 2.9 3.5-5.0 [facility] HospitalGlobulin2019-09-13 06:35:00* Test Item Value Reference Range Interpretation Comments Globulin (test code = 47613-6) 3.2 2.3-3.5 [facility] HospitalAlbumin/Globulin Usqzl6087-45-33 06:35:00 * Test Item Value Reference Range Interpretation Comments Albumin/Globulin Ratio (test code = 1759-0) 0.9 0.8-2.0 [facility] HospitalAlkaline Rupjtwcgxri4518-16-39 06:35:00* Test Item Value Reference Range Interpretation Comments Alkaline Phosphatase (test code = 6768-6) 93 40-150 [facility] HospitalLipase2019-09-13 06:35:00* Test Item Value Reference Range Interpretation Comments Lipase (test code = 3040-3) 25 8-78 [facility] Planotool Occult Gtvpl4095-13-22 16:13:00* Test Item Value Reference Range Interpretation Comments Stool Occult Blood (test code = 2335-8) NEGATIVE NEGATIVE [facility] HospitalCreatine Kinase [id number] 14:27:00* Test Item Value Reference Range Interpretation Comments Creatine Kinase MB (test code = 86491-7) 1.00 0-5.0 [facility] HospitalTroponin [id number] 14:27:00* Test Item Value Reference Range Interpretation Comments Troponin I (test code = ICR9580) < 0.001 0-0.300 [facility] HospitalUS ABDOMEN [id number] 14:18:00 [facility] [address] [place] [address] Patient Name: DANNI GLOVER MR #: [id number] : 1945 Age/Sex: 73/F Req #: [id number] [facility] Physician: NELLY MILLER MD Ordered by: JAYNE LOCKE MD Report #: [id number] Location: [facility] Room/Bed: [place] [address] Procedure: [id number] U S/US ABDOMEN COMPLETE Exam Date: 12/26/18 [...] Kinase (test code = 2157-6) 45 29-168 [facility] HospitalTriglycerides Ndvrc7541-36-83 07:12:00* Test Item Value Reference Range Interpretation Comments Triglycerides Level (test code = 2571-8) 116 0-149 [facility] HospitalCholesterol Qntoz1076-12-51 07:12:00* Test Item Value Reference Range Interpretation Comments Cholesterol Level (test code = 2093-3) 109 0-199 Less than 200 mg/dL Low Aucg777 - 239 mg/dL Borderline Fcdo051 m g/dl and greater High Risk [facility] HospitalLDL Bmzdwufumig2648-19-60 07:12:00* Test Item Value Reference Range Interpretation Comments LDL Cholesterol (test code = 2089-1) 57 60-130 [facility] HospitalHDL Tkgfyadzmxl1968-13-66 07:12:00* Test Item Value Reference Range Interpretation Comments HDL Cholesterol (test code = 2085-9) 29 40-60 [facility] HospitalCholesterol/HDL Epywd9645-50-45 07:12:00 * Test Item Value Reference Range Interpretation Comments Cholesterol/HDL Ratio (test code = 9830-1) 3.8 3.0-3.6 [facility] HospitalProthrombin Yvjc8956-74-79 21:49:00* Test Item Value Reference Range Interpretation Comments Prothrombin Time (test code = 5902-2) 12.7 11.9-14.5 [facility] HospitalProthromb Time International Ratio 2018-12-25 21:49:00* Test Item Value Reference Range Interpretation Comments Prothromb Time International Ratio (test code = 6301-6) 0.91 Oral Anticoagulant Therapy INR Values:1. Low Intensity Therapy 1.5 - 2.02 . Moderate Intensity Therapy 2.0 - 3.03. High Intensity Therapy(1) 2.5 - 3. 54. High Intensity Therapy(2) 3.0 - 4.05. Panic Value INR > 5.0 [facility] HospitalActivated Partial Thromboplast Time 2018-12-25 21:49:00* Test Item Value Reference Range Interpretation Comments Activated Partial Thromboplast Time (test code = 98164-1) 34.2 23.8-35.5 [facility] HospitalD-Dimer Quantitative (PE/DVT)2018-12-25 21:48:00* Test Item Value Reference Range Interpretation Comments D-Dimer Quantitative (PE/DVT) (test code = 43465-3) 312 0- 400 As with all in vitro diagnostic tests, the test results should be interpreted by the physician in conjunction with clinical findings and other test results.Test results are reported in NEW D-dimer units(ug/mLFEU).[facility] HospitalCHEST SINGLE (NOT PORTABLE)2018-12-25 21:29:00 [place] [address] Patient Name: DANNI GLOVER MR #: [id number] : 1945 Age/Sex: 73/F Req #: [id number] Adm Physician: Ordered by: JACKELYN GARRIDO MD Report #: [id number] Location: ER Room/Bed: Procedure: [id number] DX/CHEST [...] 12/25/182134 COPY TO: JACKELYN GARRIDO MD Urine [id number] 21:22:00* Test Item Value Reference Range Interpretation Comments Urine WBC (test code = 5821-4) 6-10 0-5 [facility] HospitalU[facility] [id number] 21:22:00* Test Item Value Reference Range Interpretation Comments Urine RBC (test code = 20834-1) NONE 0-5 [facility] HospitalUrine Tfoextwm8313-90-53 21:22:00* Test Item Value Reference Range Interpretation Comments Urine Bacteria (test code = 79411-9) MODERATE NONE [facility] HospitalUrine Epithelial Rjhxn8385-89-14 21:22:00 * Test Item Value Reference Range Interpretation Comments Urine Epithelial Cells (test code = 94615-5) FEW NONE [facility] HospitalUrine Astcn3243-56-95 21:12:00* Test Item Value Reference Range Interpretation Comments Urine Color (test code = 5778-6) YELLOW YELLOW [facility] HospitalUrine Pnglwjn5551-52-88 21:12:00* Test Item Value Reference Range Interpretation Comments Urine Clarity (test code = 03367-6) SL CLOUDY CLEAR [facility] HospitalUrine Specific Pbfetpa2112-74-31 21:12:00 * Test Item Value Reference Range Interpretation Comments Urine Specific [place] (test code = 5811-5) 1.020 1.010-1.02 5 [facility] HospitalU[facility] [id number] 21:12:00* Test Item Value Reference Range Interpretation Comments Urine pH (test code = 94972-5) 6 5-7 [facility] Leukocyte Tlfjubsp9622-10-88 21:12:00* Test Item Value Reference Range Interpretation Comments Urine Leukocyte Esterase (test code = 30091-3) SMALL NEGATIV E [facility] Lyomuwh1975-54-29 21:12:00* Test Item Value Reference Range Interpretation Comments Urine Nitrite (test code = 39234-5) NEGATIVE NEGATIVE [facility] HospitalU[facility] Ygjeofv7639-36-37 21:12:00* Test Item Value Reference Range Interpretation Comments Urine Protein (test code = 70289-8) TRACE NEGATIVE [facility] Glucose (UA)2018-12-25 21:12:00* Test Item Value Reference Range Interpretation Comments Urine Glucose (UA) (test code = 08657-1) NEGATIVE NEGATIVE [facility] Ybvhhlc9380-81-34 21:12:00* Test Item Value Reference Range Interpretation Comments Urine Ketones (test code = 20879-2) NEGATIVE NEGATIVE [facility] Tlkgsnkiyxgi3626-30-98 21:12:00* Test Item Value Reference Range Interpretation Comments Urine Urobilinogen (test code = 95908-8) 0.2 0.2-1 [facility] HospitalU[facility] Nanlzrvub8434-57-62 21:12:00* Test Item Value Reference Range Interpretation Comments Urine Bilirubin (test code = 1977-8) NEGATIVE NEGATIVE [facility] HospitalU[facility] Eghhx3213-27-81 21:12:00* Test Item Value Reference Range Interpretation Comments Urine Blood (test code = 26408-2) NEGATIVE NEGATIVE [facility] HospitalBASIC METABOLIC [id number] 07:22:00 * Test Item Value Reference Range [...] = CA) 8.1 mg/dL 8.5-10.1 L URINALYSIS [id number] 01:30:00* Test Item Value Reference Range Interpretation [...] #/LPF FEW Urine Source? Clean CatchBASIC METABOLIC [id number] 22:54:00* Test Item Value Reference Range Interpretation [...] CA) 9.1 mg/dL 8.5-10.1 N HEPATIC FUNCTION [id number] 22:54:00* Test Item Value Reference Range Interpretation [...] reference range due to change in reagent. [id number] 22:54:00* Test Item Value Reference Range Interpretation Comments LIPASE (test code = LIP) 135 U/L 73.0-393.0 N [id number]-[id number] 22:54:00* Test Item Value Reference Range Interpretation Comments TROPONIN-I (test code = TROPI) <0.015 ng/mL 0-0.045 N B-TYPE NATRIURETIC [id number] 22:52:00* Test Item Value Reference Range Interpretation Comments B-TYPE NATRIURETIC PEPTIDE (test code = BNP) 20.14 pgram/mL 0-100 N - CT ABD PELVIS W/O [id number] 22:32:00 Name: DANNI GLOVER [facility] : 1945 Age/S: 73 / F [address] [facility] Unit #: [id number] Loc: [place] [address] Phys: Tila Trent MD Acct: [id number] Dis Date: Status: REG ER PHONE #: [phone] Exam Date: 06/24/2018 2140 FAX #: [phone] Reason: epigastric pain EXAMS: CPT CODE: [id number] CT ABD PELVIS W/O CONT 83728 EXAM: CT of the abdomen and pelvis [...] are seen in the ileocecal region. The juan tayler shows a nodular contour and several [...] 1 Signed Report (CONTINUED) Name: DANNI GLOVER [facility] : 1945 Age/S: 73 / F [address] [facility]: [id number] Loc: [place] [address] Phys : Tila Trent MD Acct: [id number] Dis Date: Status: REG ER PHONE #: [phone] Exam Date: 06/24/20182139 FAX #: [phone] Reason: epigastric pain EXAMS: CPT CODE: [id number] CT ABD PELVIS W/O CONT 75217 <Continued> CC: Technologist:MRAISELA GREENE RT(R); Darshana Pollack CTDI: DLP: Trnscb [...] code = CA) mg/dL 8.5-10.1 HEPATIC FUNCTION [id number] 22:20:00* Test Item Value Reference Range Interpretation [...] TOTAL (test code = ALKP) IUnit/L 45-117 [id number] 22:20:00* Test Item Value Reference Range Interpretation Comments LIPASE (test code = LIP) U/L 73.0-393.0 [id number]-[id number] 22:20:00* Test Item Value Reference Range Interpretation Comments TROPONIN-I (test code = TROPI) ng/mL 0-0.045 - XR CHEST 1 [id number] 22:20:00 Soldier: B St: REG Name: DANNI MIRANDA [facility] : [birth year] Age/S: 73/F [address] [facility] Unit #: [id number] Loc: [place] [address] Phys: Tila Trent MD Acct: [id number] Dis Date: Status: REG ER PHONE #: [phone] Exam Date: 06/24/20182147 FAX #: [phone] Reason: CHEST PAIN EXAMS: CPT CODE: [id number] XR CHEST 1 V 28680 EXAM: Chest X-ray, 1 view; CLINICAL HISTORY: Chest pain; FINDINGS: The lungs are clear, no infiltrates, no edema; no effusions; no pneumothorax; n ormal cardiomediastinal silhouette. IMPRESSION: Normal chest x-ray. at 2220 Reported and signed by: Jonathan Jin M.D. CC: Technologist: MATTEO Sim Date/Time/By: 0 06/24/2018 (2219) : By: Ness Orig Print D/T: S: 06/24/2018 (2222) PAGE 1 Signed Report CBC W/O [id number] 21:48:00* Test Item Value Reference Range Interpretation [...] fL 6.7-11.0 N Stress Test - Treadmill [id number] 10:29:[address] [address] Patient Name : DANNI GLOVER MR #: [id number] : 1945 Age/Sex: 72/F Adm Physician : NELLY MILLER MD Admit Date : 10/26/17 Location : MED/SURG Room/Bed : [facility] REPORT: Cardiology Repor t DATE OF STUDY: [...] function with LVEF more than 70%. Job#: [id number] SKI Sign ature Date Dictated By: OLIVER SANCHEZ MD Transcribed By: SMEDS on 11/12/17 <Electronically signed by OLIVER SANCHEZ MD><< Signature on File>>11/13/17 1245 COPY TO: CT ABDOMEN/PELVIS [id number] 00:01:00 [place] [address] Patient Name: DANNI GLOVER MR #: [id number] : 1945 [facility] 72[id number] Req #: [id number] Adm Physician: Ordered by: JACKELYN GARRIDO MD Report #: [id number] Location: ER Room/Bed: Procedure: CT/CT ABDOMEN/PELVIS W [...] JACKELYN GARRIDO MD CHEST SINGLE (PORTABLE)2017-10-31 23:54:00 [place] [address] Patient Name: DANNI GLOVER MR #: [id number] : 1945 Age/Sex: 72/F Req #: [id number] Adm Physician: Ordered by: JACKELYN GARRIDO MD Report #: [id number] Location: ER Room/Bed: Procedure: [id number] DX/CHEST SINGLE (MARCOS BLE) Exam Date: 10/31/17 [...] 2 358 Transcribed By: CLAY on 10/31/17 1407 COPY TO: ARJUN GARRIDO MD CT CHEST [id number] 10:09:00 [place] [address] Patient Name: DANNI GLOVER MR #: [id number] : 1945 Age/Sex: 72/F Req #: [id number] Adm Physician: NELLY MILLER MD Ordered by: MARCELL JONES MD Report #: [id number] Location: [facility] Room/Bed: [place] [address] Procedure: [id number] C T/CT CHEST W Exam Date: 10/26/17 [...] COPY TO: MARCELL JONES MD CHEST 2 [id number] 06:29:00 [place] [address] Patient Name: DANNI GLOVER MR #: [id number] : 1945 Age/Sex: 72/F Req #: [id number] Adm Physician: Ordered by: MARCELL JONES MD Report #: [id number] Location: ER Room/Bed: Procedure: [id number] DX/CHEST 2 VIEWS Exam Date: 10/26/17 Exam [...] TO: MARCELL ROSS MD CHEST SINGLE (PORTABLE) [place] [address] Patient Name: DANNI GLOVER MR #: [id number] : 1945 Age/Sex: 71/F Req #: [id number] Adm Physician: Ordered by: JACKELYN GARRIDO MD Report #: [id number] Location: ER Room/Bed: Procedure: [id number] DX/CHEST SINGLE (PORTABL E) Exam Date: 11/30/16 [...]
--- NOTE | 2019-09-06 07:11 | NUR ---
RADIOLOGY AT BEDSIDE
--- NOTE | 2019-09-06 07:15 | NUR ---
PATIENT REFUSING TO STAY. DR. JONES AWARE. PATIENT SAYS SHE WILL WAIT FOR ALL HER RESULTS TO COME BACK
--- NOTE | 2019-09-06 07:41 | Diagnostic Imaging Report ---
Examination: Single AP view of the chest. COMPARISON: AP chest 12/25/2018 INDICATION: Lightheadedness, lethargy IMPRESSION: 1. Lines and Tubes: None 2. Hypoinflated lungs. Bilateral basal patchy opacities, likely reflecting atelectasis. No consolidation or effusion. 3. Cardiomediastinal silhouette is normal. Central pulmonary venous crowding due to low lung volumes. 4. No acute bony abnormalities. Signed by: Dr. Luis Manuel Farah M.D. on 09/06/2019 7:37 AM
[2019-09-06 07:46] LABS: CLARITY,URINE CLEAR (CLEAR); COLOR,URINE YELLOW (YELLOW); LEUKOCYTE ESTERASE ,URINE TRACE (NEGATIVE); NITRITE,URINE NEGATIVE (NEGATIVE)
[2019-09-06 07:47] LABS: KETONES,URINE NEGATIVE (NEGATIVE); PROTEIN,URINE DIPSTICK NEGATIVE (NEGATIVE); URINE UROBILINOGEN 0.2 mg/dL (0.2 - 1)
[2019-09-06 07:48] LABS: BILIRUBIN,URINE NEGATIVE (NEGATIVE)
[2019-09-06 07:59] LABS: BACTERIA,URINE MODERATE /HPF; EPITHELIAL CELLS,URINE MODERATE /LPF; MUCUS,URINE FEW (RARE); WBC,URINE (MAN) 0-5 /HPF (0-5)
[2019-09-06 09:05] VITALS: BP 148/61
--- NOTE | 2019-09-06 09:45 | NUR ---
received pt from ER via stretcher. pt is alert, no s/s of distress. pt ambulated from the stretcher to the bathroom. oriented to room, call light within reach and instructed pt to call RN for help
[2019-09-06 11:24] LABS: CHOL/HDL RATIO 2.8 (3.0-3.6)
[2019-09-06] MEDS ORDERED: PNEUMOCOCCAL VACCINE POLYVALENT 23 MCG/0.5 ML VIAL IM SCH ×2 (11:25→15:45)
[2019-09-06 11:33] VITALS: BP 148/61
[2019-09-06] MEDS ORDERED: SULFASALAZINE 500 MG TAB PO SCH (13:00)
--- NOTE | 2019-09-06 13:18 | Progress Note ---
DATE: 09/06/2019 Cardiology Consultation REASON FOR CONSULTATION: Fatigue. HISTORY OF PRESENT ILLNESS: A 74-year-old woman with history of hypertension, depression, anxiety, Crohn disease, anemia, and CKD, who is brought to the emergency department for nonspecific complaints of feeling tired and fatigued. She denies any fever, cough, or shortness of breath. She denies any exertional chest discomfort or shortness of breath. She denies any other current complaints. REVIEW OF SYSTEMS: A 12-system review negative except for as noted above. PAST MEDICAL HISTORY: Crohn disease, hypothyroidism, anemia, gastroesophageal reflux disease, anxiety, depression, hypertension, and CKD. ALLERGIES: NO KNOWN DRUG ALLERGIES. FAMILY HISTORY: Remarkable for hypertension. SOCIAL HISTORY: Denies smoking, alcohol, or drugs. PHYSICAL EXAMINATION: VITAL SIGNS: Temperature 97.9, heart rate 83, blood pressure 148/61, respiratory rate 22, and O2 saturation 97%. BMI 30. GENERAL: No acute distress. Alert. NECK: No JVD. CHEST: Clear to auscultation. CARDIOVASCULAR: Regular rate and rhythm. Normal S1 and S2. No S3. No S4. No murmurs or rubs. ABDOMEN: Soft. Bowel sounds positive. EXTREMITIES: No edema. STUDIES: Reviewed. Troponin I less than 0.001. BNP 33. COVID-19 PCR pending. Sodium 142, potassium 3.9, chloride 112, bicarbonate 19, BUN 19, creatinine 1.36, and glucose 105. White blood cells 11.7, hemoglobin 11.5, and platelets 287. AST 58, ALT 45, total bilirubin 0.7, and alkaline phosphatase 169. ASSESSMENT AND PLAN: A 74-year-old woman presents with malaise/fatigue. Upon evaluation with mild leukocytosis and creatinine 1.39 with mild metabolic acidosis, bicarbonate 19. RECOMMEND: 1. Further evaluation for possible HERMAN on CKD. 2. Infectious rule out given mild leukocytosis. 3. Reassuring biomarkers from a cardiovascular standpoint. Nonfocal complaints at this point. Denying chest pain or shortness of breath. Outpatient followup for further cardiovascular evaluation is advised. TSH is normal. Thank you for the opportunity to participate in the care of Ms. Ritter. Tariq Bland MD AFV/MODL /[id number]
[2019-09-06 14:52] LABS: CREATINE KINASE 47 IU/L (29-168)
[2019-09-06] MEDS ORDERED: CARVEDILOL 12.5 MG TAB PO SCH (17:00)
--- NOTE | 2019-09-06 17:54 | Discharge Summary ---
ADMISSION DIAGNOSES: 1. Weakness. 2. Fatigue. 3. Hyperlipidemia. 4. Hypertension. 5. Chronic kidney disease, 3. 6. Hypothyroidism. 7. Gastroesophageal reflux disease. 8. Bigeminy. DISCHARGE DIAGNOSES: 1. Weakness. 2. Fatigue. 3. Hyperlipidemia. 4. Hypertension. 5. Chronic kidney disease, 3. 6. Hypothyroidism. 7. Gastroesophageal reflux disease. 8. Bigeminy. 9. Rule out ACS. PAST MEDICAL HISTORY: Hyperlipidemia, GERD, hypertension, hypothyroidism, depression, Crohn disease, and CKD, 3. SURGICAL HISTORY: Right total knee replacement, right ankle surgery, right inguinal hernia repair, and cholecystectomy. FAMILY HISTORY: The patient's mom and sisters have diabetes. SOCIAL HISTORY: Noncontributory. HOSPITAL COURSE: A 74-year-old female admits with complaints of fatigue after waking up around 02:00 a.m. to go to the restroom. She denies dizziness, headache, focal weakness, change in speech or vision, shortness of breath, or chest pain. On admission, hemoglobin was within normal limits. The patient is ambulating independently. TSH is within normal limits as is lipid panel. Cardiology was consulted due to occasional bigeminy. She remained in sinus rhythm per tele-monitor. During the hospitalization, her CKD appeared to be fine. Chest x-ray reflect atelectasis, no other abnormalities. BNP was within normal limits. Cardiology saw the patient and cleared her discharge. DISCHARGE INSTRUCTIONS: She will follow up with primary care in 1 to 2 weeks and Cardiology in 1 to 2 weeks. The patient understands instructions and agrees to plan. Dictated by Cookie Bob NP Víctor Camacho MD KERRI/MODL /[id number]
[2019-09-07] MEDS ORDERED: LEVOTHYROXINE SODIUM 50 MCG TAB PO SCH ×2 (06:00→09:00)
[2019-09-07] MEDS ORDERED: PANTOPRAZOLE SOD 40 MG TABEC PO SCH (07:30)
[2019-09-07] MEDS ORDERED: AMLODIPINE BESYLATE 5 MG TAB PO SCH (09:00)
[2019-09-07] MEDS ORDERED: MELOXICAM 7.5 MG TAB PO SCH (09:00)
[2019-09-07] MEDS ORDERED: CLOPIDOGREL BISULFATE 75 MG TAB PO SCH (09:00)
[2019-09-07] MEDS ORDERED: FOLIC ACID 1 MG TAB PO SCH (09:00)
[2019-09-07] MEDS ORDERED: LOSARTAN POTASSIUM 100 MG TAB PO SCH (09:00)
[2019-09-07] MEDS ORDERED: FERROUS SULFATE 325 MG TAB PO SCH (09:00)
== END 2019-09-06 16:03 | disposition home or self-care (01) ==
LOC: ER 05:50 → ERHOLD 06:57 → MED/SURG3 08:58
PROVIDERS: ADMIT Internal Medicine; ATTEND Internal Medicine
DX: R53.1 Weakness (principal); R53.83 Other fatigue; R00.8 Other abnormalities of heart beat; E78.5 Hyperlipidemia, unspecified; I12.9 Hypertensive chronic kidney disease with stage 1 through stage 4 chronic kidney disease, or unspecified chronic kidney disease; N18.3 Chronic kidney disease, stage 3 (moderate); K21.9 Gastro-esophageal reflux disease without esophagitis; E03.9 Hypothyroidism, unspecified; F32.9 Major depressive disorder, single episode, unspecified; K50.90 Crohn's disease, unspecified, without complications; Z90.49 Acquired absence of other specified parts of digestive tract; Z96.651 Presence of right artificial knee joint; Z83.3 Family history of diabetes mellitus; N28.89 Other specified disorders of kidney and ureter; D72.829 Elevated white blood cell count, unspecified; E87.2 Acidosis; Z23 Encounter for immunization
CPT/HCPCS: 36415; 71045; 80053; 80061; 81001; 82550; 82553; 83880; 84443; 84484; 85025; 87635; 90732; 93005; 93306; 97116; 97161; 99284; G0378; J7030; G0009

== ENCOUNTER 2019-10-13 16:38 | Emergency (ER) | payer MEDICARE ==
[~2019-10-13] VITALS: Ht 162.6 cm; Wt 81.2 kg
[2019-10-13] MEDS ORDERED: METOPROLOL TARTRATE 25 MG TAB PO ONE (17:15)
--- NOTE | 2019-10-13 17:24 | Emergency Department Note ---
History of Present Illnes History of Present Illness Chief Complaint: General Medicine Complaints History of Present Illness This is a 74 year old female PATIENT IN FROM HOME WITH COMPLAINTS OF RASH TO RIGHT THIGH X 3-4 DAYS; STATES IT ITCHES AND MAJOR. PATIENT DENIES PAIN AT THIS TIME; APPEARS IN NO DISTRESS, RESP EVEN AND NONLABORED. DID NOT TAKE HER BP MEDS TODAY (SAYS SHE TAKES 2 DIFFERENT BP MEDS) Historian: Patient Arrival Mode: Car Rn Surgical Required: No Onset (how long ago): day(s) (3) Location: RIGHT THIGH Quality: RASH - ITCHY AND BURNING Radiation: Reports non-radiation Severity: mild Onset quality: gradual Timing of current episode: constant Progression: worsening Chronicity: new Context: Denies recent illness Relieving factors: none Exacerbating factors: none Associated symptoms: Reports denies other symptoms Treatments prior to arrival: none Past Medical/Family History Physician Review I have reviewed the patient's past medical and family history. Any updates have been documented here. Past Medical History Recent Fever: No Clinical Suspicion of Infectio: No New/Unexplained Change in Ment: No Past Medical History: Hypertension, Hypothyroidism, GERD, Hyperlipedemia Other Medical History: Crohn's disease kidney disease Past Surgical History: Cholecysctectomy, Knee Replacement, Hernia Repair Other Surgery: R KNEE R ANKLE HERNIA Social History Smoking Cessation: Never Smoker Counseling Performed: No Alcohol Use: None Any Illegal Drug Use: No TB Exposure/Symptoms: No Physically hurt or threatened: No Family History Family history of heart diseas: No Other Last Tetanus: OOD Review of Systems Review of Systems Constitutional: Reports no symptoms EENTM: Reports no symptoms Cardiovascular: Reports no symptoms Respiratory: Reports no symptoms Gastrointestinal: Reports no symptoms Genitourinary: Reports no symptoms Musculoskeletal: Reports no symptoms Integumentary: Reports as per HPI, Reports rash Neurological: Reports no symptoms Psychological: Reports no symptoms Endocrine: Reports no symptoms Hematological/Lymphatic: Reports no symptoms Physical Exam Related Data Allergies: Coded Allergies: No Known Allergies (Unverified , 11/30/16) Triage Vital Signs Vital Signs Date Time Temp Pulse Resp B/P (MAP) Pulse Ox O2 Delivery O2 Flow Rate FiO2 10/13/19 17:00 99.1 112 20 200/106 96 Vital signs reviewed: Yes Physical Exam CONSTITUTIONAL Constitutional: Present well-developed, Present well-nourished HENT HENT: Present normocephalic, Present atraumatic, Present oropharynx clear/moist, Present nose normal HENT L/R: Present left ext ear normal, Present right ext ear normal EYES Eyes: Reports PERRL, Reports conjunctivae normal NECK Neck: Present ROM normal PULMONARY Pulmonary: Present effort normal, Present breath sounds normal CARDIOVASCULAR Cardiovascular: Present regular rhythm, Present heart sounds normal, Present capillary refill normal, Present normal rate GASTROINTESTINAL Abdominal: Present soft, Present nontender, Present bowel sounds normal GENITOURINARY Genitourinary: Present exam deferred SKIN Skin: Present rash, Present other (VESICULAR RASH IN PATCH ~5 CM ON ANTERIOR RIGHT THIGH THEN OTHER SMALLER VESICULAR LESIONS LATERAL TO RIGHT KNEE); Absent warm MUSCULOSKELETAL Musculoskeletal: Present ROM normal NEUROLOGICAL Neurological: Present alert, Present oriented x 3, Present no gross motor or sensory deficits PSYCHOLOGICAL Psychological: Present mood/affect normal, Present judgement normal Assessment & Plan Medical Decision Making MDM RASH - LOOKS LIKE SHINGLES IN L3 DISTRIBUTION Reassessment Reassessment DC HOME WITH VALROBYN, F/U IN AM WITH DR JAYNE ABDULLAHI, DERMATOLOGY Assessment & Plan Final Impression: (1) Shingles Depart Disposition: HOME, SELF-CARE Last Vital Signs Date Time Temp Pulse Resp B/P (MAP) Pulse Ox O2 Delivery O2 Flow Rate FiO2 10/13/19 17:00 99.1 112 20 200/106 96 Home Meds Reported Medications Clopidogrel Bisulfate* (PLAVIX) 75 Mg Tablet, 75 MG PO DAILY, #30 TAB 09/06/19 Levothyroxine Sodium (LEVOTHYROXINE SODIUM) 50 Mcg Tablet, 50 MCG PO DAILY, #30 TAB 09/06/19 Sucralfate (SUCRALFATE) 1 Gm Tablet, 1 GM PO BID, TAB 12/25/18 Meloxicam (MELOXICAM) 7.5 Mg Tablet, 15 MG PO DAILY, #30 TAB 12/25/18 Budesonide/Formoterol Fumarate (SYMBICORT 80-4.5 MCG INHALER) 10.2 Gm Hfa.aer.ad, 2 EA INH BID, EACH 10/29/17 Amlodipine Besylate (NORVASC) 5 Mg Tab, 10 MG PO DAILY, #30 TAB 10/26/17 Sulfasalazine (SULFASALAZINE) 500 Mg Tab, 1000 MG PO QID, #30 TAB 10/26/17 Pantoprazole Sodium* (PROTONIX) 40 Mg Tablet.dr, 40 MG PO DAILY, TAB 11/04/14 Folic Acid (FOLIC ACID) 1 Mg Tablet, 1 MG PO DAILY, #30 TAB 11/04/14 Losartan Potassium (LOSARTAN POTASSIUM) 25 Mg Tablet, 100 MG PO DAILY 11/04/14 Prednisone (PREDNISONE) 10 Mg Tab, 5 MG PO DAILY, TAB 11/04/14 Ferrous Sulfate (FERROUS SULFATE) 325 Mg Tablet.dr, 325 MG PO DAILY 11/03/14 Carvedilol (CARVEDILOL) 25 Mg Tablet, 12.5 MG PO BID 11/03/14 Medications in the ED Metoprolol Tartrate 25 mg ONCE ONCE PO ; Start 10/13/19 at 17:15; Stop 10/13/19 at 17:16; Status UNV MARCELL JONES MD Oct 13, 2019 17:24
[2019-10-13] MEDS ORDERED: METOPROLOL SUCCINATE 25 MG TAB XL ONE (17:32)
== END 2019-10-13 18:00 | disposition home or self-care (01) ==
LOC: ER 17:20
DX: B02.9 Zoster without complications (principal); I10 Essential (primary) hypertension; E78.5 Hyperlipidemia, unspecified; K21.9 Gastro-esophageal reflux disease without esophagitis; E03.9 Hypothyroidism, unspecified; K50.90 Crohn's disease, unspecified, without complications
CPT/HCPCS: 99282

== ENCOUNTER → 2019-12-25 | Outpatient (CLI) | payer MEDICARE | LOC: MAMMO 12:50 | PROVIDERS: ATTEND Internal Medicine | DX: Z12.31 Encounter for screening mammogram for malignant neoplasm of breast (principal) | CPT/HCPCS: 77067 ==

== ENCOUNTER → 2021-02-04 | Outpatient (CLI) | payer MEDICARE | LOC: MAMMO 11:42 | PROVIDERS: ATTEND Internal Medicine | DX: Z12.31 Encounter for screening mammogram for malignant neoplasm of breast (principal) | CPT/HCPCS: 77067 ==

== ENCOUNTER 2021-05-26 08:51 | Emergency (ER) | payer MEDICARE, OTHER ==
[~2021-05-26] VITALS: Ht 162.6 cm; Wt 81.2 kg
[~2021-05-26 08:51] MED LIST changes: -CIPRO500 MG PO; -IOPAMIDOL 370 MG/ML 200 ML INFUS..BTL INJ ONE; -SODIUM CHLORIDE 0.9% 500ML 500 ML ONE; -SODIUM CHLORIDE 0.9% 50ML 50 ML ONE
[2021-05-26 10:06] LABS: CLARITY,URINE SL CLOUDY (CLEAR); COLOR,URINE YELLOW (YELLOW); KETONES,URINE NEGATIVE (NEGATIVE); LEUKOCYTE ESTERASE ,URINE TRACE (NEGATIVE); NITRITE,URINE NEGATIVE (NEGATIVE); PROTEIN,URINE DIPSTICK NEGATIVE (NEGATIVE); URINE UROBILINOGEN 0.2 mg/dL (0.2 - 1)
[2021-05-26 10:07] LABS: BASOPHILS # (AUTO) 0.1 (0.0-0.1); BASOPHILS % 0.5 % (0.0-1.0); EOSINOPHILS # (AUTO) 0.4 (0.0-0.4); EOSINOPHILS % 2.9 % (0.0-6.0); HEMATOCRIT 39.8 % (34.2-44.1); HEMOGLOBIN 11.6 g/dL (12.0-16.0); LYMPHOCYTES # (AUTO) 2.2 (1.0-3.2); MEAN CORPUSCULAR HEMOGLOBIN 27.4 pg (28-32); MEAN CORPUSCULAR HGB CONC 29.1 g/dL (31-35); MEAN CORPUSCULAR VOLUME 94.1 fL (81-99); MONOCYTES % 7.8 % (4.4-11.3); NEUTROPHILS # (AUTO) 8.7 (2.1-6.9); PLATELET COUNT 327 x10e3/uL (140-360); RED BLOOD COUNT 4.23 x10e6/uL (3.6-5.1); RED CELL DISTRIBUTION WIDTH 15.5 % (11.7-14.4)
[2021-05-26 10:24] LABS: ALBUMIN 3.7 g/dL (3.5-5.0); ALBUMIN/GLOBULIN RATIO 0.9 (0.8-2.0); ANION GAP 16.4 mmol/L (8-16); CALCIUM 9.4 mg/dL (8.4-10.2); CREATININE, SERUM 1.26 mg/dL (0.57-1.11); POTASSIUM 3.4 mmol/L (3.5-5.1)
[2021-05-26 10:26] LABS: BACTERIA,URINE MODERATE /HPF; EPITHELIAL CELLS,URINE FEW /LPF
[2021-05-26 10:31] LABS: CREATINE KINASE MB 0.8 ng/mL (0-5.0)
[2021-05-26] MEDS ORDERED: CIPRO500 MG PO (11:28)
[2021-05-26] MEDS ORDERED: ULTRAM 50MG50 MG PO (11:29)
== END 2021-05-26 11:59 | disposition home or self-care (01) ==
LOC: ER 09:01
DX: S01.01XA Laceration without foreign body of scalp, initial encounter (principal); R55 Syncope and collapse; R51.9 Headache, unspecified; R10.9 Unspecified abdominal pain; W01.198A Fall on same level from slipping, tripping and stumbling with subsequent striking against other object, initial encounter; Y92.238 Other place in hospital as the place of occurrence of the external cause; I10 Essential (primary) hypertension; E78.5 Hyperlipidemia, unspecified; E03.9 Hypothyroidism, unspecified; K21.9 Gastro-esophageal reflux disease without esophagitis
CPT/HCPCS: 36415; 80053; 81001; 82550; 82553; 83690; 84484; 85025; 93005; 99284

== ENCOUNTER → 2021-05-26 | Outpatient (CLI) | payer MEDICARE ==
[~2021-05-26] MED LIST changes: +CIPRO500 MG PO; +IOPAMIDOL 370 MG/ML 200 ML INFUS..BTL INJ ONE; +SODIUM CHLORIDE 0.9% 500ML 500 ML ONE; +SODIUM CHLORIDE 0.9% 50ML 50 ML ONE
[2021-05-26 08:00] LABS: CREATININE, SERUM 1.26 mg/dL (0.57-1.11)
== END ==
LOC: CT 06:54
PROVIDERS: ATTEND Internal Medicine
DX: R10.31 Right lower quadrant pain (principal); K46.9 Unspecified abdominal hernia without obstruction or gangrene; K52.9 Noninfective gastroenteritis and colitis, unspecified
CPT/HCPCS: 36415; 70450; 72125; 74177; 82565; 84520; J7040; Q9967

== ENCOUNTER → 2021-06-06 | Outpatient (CLI) | payer MEDICARE, MEDICAID ==
[~2021-06-06] MED LIST changes: +CIPRO500 MG PO
== END ==
LOC: RAD 14:56
PROVIDERS: ATTEND Internal Medicine
DX: S42.402A Unspecified fracture of lower end of left humerus, initial encounter for closed fracture (principal)

== ENCOUNTER 2021-08-08 00:11 | Emergency (ER) | payer MEDICARE ==
[~2021-08-08] VITALS: Ht 162.6 cm; Wt 81.2 kg
== END 2021-08-08 01:05 | disposition home or self-care (01) ==
LOC: ER 00:16
DX: B37.2 Candidiasis of skin and nail (principal); I10 Essential (primary) hypertension; E78.5 Hyperlipidemia, unspecified; K21.9 Gastro-esophageal reflux disease without esophagitis; E03.9 Hypothyroidism, unspecified; Z87.19 Personal history of other diseases of the digestive system
CPT/HCPCS: 99282

== ENCOUNTER 2021-08-10 22:39 | Emergency (ER) | payer MEDICARE ==
[~2021-08-10] VITALS: Ht 162.6 cm; Wt 81.2 kg
[2021-08-10] MEDS ORDERED: METHYLPREDNISOLONE SOD SUCC 125 MG/2ML VIAL IV STA (22:53)
[2021-08-10 23:02] LABS: BASOPHILS # (AUTO) 0.1 (0.0-0.1); BASOPHILS % 0.4 % (0.0-1.0); EOSINOPHILS # (AUTO) 1.4 (0.0-0.4); EOSINOPHILS % 12.3 % (0.0-6.0); HEMATOCRIT 35.8 % (34.2-44.1); HEMOGLOBIN 11.3 g/dL (12.0-16.0); LYMPHOCYTES # (AUTO) 2.4 (1.0-3.2); LYMPHOCYTES % 21.1 % (18.0-39.1); MEAN CORPUSCULAR HGB CONC 31.6 g/dL (31-35); MEAN CORPUSCULAR VOLUME 91.8 fL (81-99); MONOCYTES # (AUTO) 1.1 (0.2-0.8); MONOCYTES % 9.9 % (4.4-11.3); NEUTROPHILS # (AUTO) 6.2 (2.1-6.9); NEUTROPHILS % 55.9 % (38.7-80.0); PLATELET COUNT 280 x10e3/uL (140-360)
[2021-08-10 23:19] LABS: ANION GAP 12.4 mmol/L (8-16); CALCIUM 8.5 mg/dL (8.4-10.2); CREATININE, SERUM 1.21 mg/dL (0.57-1.11); POTASSIUM 3.4 mmol/L (3.5-5.1)
[2021-08-10] MEDS ORDERED: ONDANSETRON HCL INJ 2MG/ML 2ML 2 MG/ML VIAL IV STA (23:43)
[2021-08-10] MEDS ORDERED: Morphine 4mg Syringe 4 MG/ML INJ IV ONE (23:45)
[2021-08-11] MEDS ORDERED: IOPAMIDOL 370 MG/ML 100 ML INFUS..BTL INJ ONE (00:20)
[2021-08-11] MEDS ORDERED: BACTRIM 400-801 EACH PO (02:22)
[2021-08-11] MEDS ORDERED: ACETAMINOPHEN-1 EAC4 PO (02:22)
[2021-08-11] MEDS ORDERED: CEPHALEXIN500 MG PO (02:22)
== END 2021-08-11 02:45 | disposition home or self-care (01) ==
LOC: ER 22:45
DX: L30.9 Dermatitis, unspecified (principal); I10 Essential (primary) hypertension; K21.9 Gastro-esophageal reflux disease without esophagitis; E03.9 Hypothyroidism, unspecified; Z79.02 Long term (current) use of antithrombotics/antiplatelets; Z79.899 Other long term (current) drug therapy
CPT/HCPCS: 36415; 74177; 80048; 85025; 99284; J2270; J2405; J2930; Q9967

== ENCOUNTER 2023-11-23 18:55 | Emergency (ER) | payer MEDICARE ==
[~2023-11-23] VITALS: Ht 162.6 cm; Wt 67.1 kg
[~2023-11-23 18:55] MED LIST changes: +ACETAMINOPHEN-1 EAC4 PO; +ATORVASTATIN CA10 MG PO; +BACTRIM 400-801 EACH PO; +CEPHALEXIN500 MG PO; +KEFLEX125 MG/5 M PO; +ONDANSETRON ODT4 MG SL; +PREDNISONE5 MG PO
[2023-11-23 19:22] LABS: BASOPHILS % 0.3 % (0.0-1.0); EOSINOPHILS # (AUTO) 0.2 (0.0-0.4); EOSINOPHILS % 1.6 % (0.0-6.0); HEMATOCRIT 29.2 % (34.2-44.1); HEMOGLOBIN 8.8 g/dL (12.0-16.0); LYMPHOCYTES # (AUTO) 1.9 (1.0-3.2); LYMPHOCYTES % 17.9 % (18.0-39.1); MEAN CORPUSCULAR HEMOGLOBIN 26.6 pg (28-32); MEAN CORPUSCULAR HGB CONC 30.1 g/dL (31-35); MEAN CORPUSCULAR VOLUME 88.2 fL (81-99); MONOCYTES # (AUTO) 0.8 (0.2-0.8); MONOCYTES % 8.1 % (4.4-11.3); NEUTROPHILS # (AUTO) 7.4 (2.1-6.9); NEUTROPHILS % 71.3 % (38.7-80.0); PLATELET COUNT 276 x10e3/uL (140-360); RED BLOOD COUNT 3.31 x10e6/uL (3.6-5.1); RED CELL DISTRIBUTION WIDTH 17.1 % (11.7-14.4); WHITE BLOOD COUNT 10.33 x10e3/uL (4.8-10.8)
[2023-11-23 19:41] LABS: INFLUENZAE A&B ANTIGEN (RAPID) NEGATIVE (NEGATIVE); RESPIRATORY SYNC. VIRUS NEGATIVE (NEGATIVE)
[2023-11-23 19:44] LABS: ALBUMIN 3.5 g/dL (3.5-5.0); ALBUMIN/GLOBULIN RATIO 1.2 (0.8-2.0); ANION GAP 14.1 mmol/L (8-16); BILIRUBIN,TOTAL 0.3 mg/dL (0.2-1.2); CALCIUM 8.5 mg/dL (8.4-10.2); CREATININE, SERUM 1.27 mg/dL (0.57-1.11); POTASSIUM 4.1 mmol/L (3.5-5.1); TOTAL PROTEIN 6.4 g/dL (6.5-8.1)
[2023-11-23] MEDS ORDERED: PANTOPRAZOLE SO40 MG PO (20:56)
[2023-11-23 21:00] VITALS: PULSE 71; RESP 16; TEMP 98.6; O2SAT 96
== END 2023-11-23 21:04 | disposition home or self-care (01) ==
LOC: ER 19:00
DX: R06.00 Dyspnea, unspecified (principal); K21.9 Gastro-esophageal reflux disease without esophagitis; I10 Essential (primary) hypertension; E78.5 Hyperlipidemia, unspecified; E03.9 Hypothyroidism, unspecified; D64.9 Anemia, unspecified; Z11.52 Encounter for screening for COVID-19; Z87.19 Personal history of other diseases of the digestive system
CPT/HCPCS: 36415; 70450; 71045; 80053; 83880; 84484; 85025; 87400; 87420; 93005; 94760; 99284; J2470; U0002

== ENCOUNTER 2024-03-22 12:08 | Emergency (ER) | payer MEDICARE ==
[~2024-03-22] VITALS: Ht 162.6 cm; Wt 67.1 kg
[2024-03-22 13:19] LABS: BASOPHILS % 0.2 % (0.0-1.0); EOSINOPHILS # (AUTO) 0.1 (0.0-0.4); EOSINOPHILS % 1.2 % (0.0-6.0); HEMATOCRIT 35.1 % (34.2-44.1); HEMOGLOBIN 10.1 g/dL (12.0-16.0); LYMPHOCYTES # (AUTO) 1.2 (1.0-3.2); LYMPHOCYTES % 11.6 % (18.0-39.1); MEAN CORPUSCULAR HEMOGLOBIN 25.4 pg (28-32); MEAN CORPUSCULAR HGB CONC 28.8 g/dL (31-35); MEAN CORPUSCULAR VOLUME 88.2 fL (81-99); MONOCYTES # (AUTO) 0.8 (0.2-0.8); MONOCYTES % 7.5 % (4.4-11.3); NEUTROPHILS # (AUTO) 8.1 (2.1-6.9); PLATELET COUNT 338 x10e3/uL (140-360); RED BLOOD COUNT 3.98 x10e6/uL (3.6-5.1); RED CELL DISTRIBUTION WIDTH 15.6 % (11.7-14.4); WHITE BLOOD COUNT 10.27 x10e3/uL (4.8-10.8)
[2024-03-22 13:44] LABS: ALBUMIN 3.3 g/dL (3.5-5.0); ALBUMIN/GLOBULIN RATIO 0.8 (0.8-2.0); ANION GAP 16.1 mmol/L (8-16); BILIRUBIN,TOTAL 0.4 mg/dL (0.2-1.2); CALCIUM 9.5 mg/dL (8.4-10.2); CREATININE, SERUM 1.34 mg/dL (0.57-1.11); POTASSIUM 4.1 mmol/L (3.5-5.1); TOTAL PROTEIN 7.3 g/dL (6.5-8.1)
[2024-03-22 13:50] LABS: TROPONIN I 0.003 ng/mL (0-0.300)
[2024-03-22] MEDS ORDERED: SODIUM CHLORIDE 0.9% 100 ML ONE (13:57)
[2024-03-22] MEDS ORDERED: IOPAMIDOL 370 MG/ML 100 ML INFUS..BTL INJ ONE (13:57)
[2024-03-22 16:37] VITALS: PULSE 86; RESP 15; TEMP 97.7; O2SAT 99
== END 2024-03-22 16:45 | disposition home or self-care (01) ==
LOC: ER 12:24
DX: R06.00 Dyspnea, unspecified (principal); R42 Dizziness and giddiness; R19.7 Diarrhea, unspecified; I10 Essential (primary) hypertension; E78.5 Hyperlipidemia, unspecified; D64.9 Anemia, unspecified; E03.9 Hypothyroidism, unspecified; K21.9 Gastro-esophageal reflux disease without esophagitis; Z87.19 Personal history of other diseases of the digestive system
CPT/HCPCS: 36415; 71045; 71260; 80053; 83690; 84484; 85025; 93005; 99284; J7050; Q9967

== ENCOUNTER 2024-05-07 13:00 | Inpatient (IN) | payer MEDICARE ==
[~2024-05-07] VITALS: Ht 162.6 cm; Wt 77.8 kg
[2024-05-07] VITALS (13 sets, daily range): BP systolic 87–124; BP diastolic 51–87; PULSE 99–121; RESP 20–31; TEMP 98.3–98.7; O2SAT 95–99
[2024-05-07 14:09] LABS: BASOPHILS # (AUTO) 0.1 (0.0-0.1); BASOPHILS % 0.3 % (0.0-1.0); EOSINOPHILS # (AUTO) 0.2 (0.0-0.4); EOSINOPHILS % 0.5 % (0.0-6.0); HEMATOCRIT 37.5 % (34.2-44.1); HEMOGLOBIN 10.7 g/dL (12.0-16.0); LYMPHOCYTES # (AUTO) 0.8 (1.0-3.2); LYMPHOCYTES % 1.8 % (18.0-39.1); MEAN CORPUSCULAR HEMOGLOBIN 25.9 pg (28-32); MEAN CORPUSCULAR HGB CONC 28.5 g/dL (31-35); MEAN CORPUSCULAR VOLUME 90.8 fL (81-99); MONOCYTES # (AUTO) 0.9 (0.2-0.8); MONOCYTES % 2.1 % (4.4-11.3); NEUTROPHILS # (AUTO) 40.5 (2.1-6.9); NEUTROPHILS % 90.9 % (38.7-80.0); PLATELET COUNT 276 x10e3/uL (140-360); RED BLOOD COUNT 4.13 x10e6/uL (3.6-5.1); RED CELL DISTRIBUTION WIDTH 18.4 % (11.7-14.4)
[2024-05-07 14:14] LABS: WHITE BLOOD COUNT 44.53 x10e3/uL (4.8-10.8)
[2024-05-07] MEDS: DICYCLOMINE HCL 20 MG TAB PO ONE (14:21)
[2024-05-07] MEDS: SODIUM CHLORIDE 0.9% 1000ML 1,000 ML IV ONE (14:21)
[2024-05-07 14:33] LABS: INR 1.27; PARTIAL THROMBOPLASTIN TIME 42.5 seconds (23.8-35.5); PROTHROMBIN TIME 16.6 seconds (11.9-14.5)
[2024-05-07 14:37] LABS: BASOPHILS # (AUTO) 0.1 (0.0-0.1); BASOPHILS % 0.2 % (0.0-1.0); EOSINOPHILS # (AUTO) 0.1 (0.0-0.4); EOSINOPHILS % 0.2 % (0.0-6.0); HEMATOCRIT 34.1 % (34.2-44.1); HEMOGLOBIN 9.4 g/dL (12.0-16.0); LYMPHOCYTES # (AUTO) 0.7 (1.0-3.2); LYMPHOCYTES % 1.7 % (18.0-39.1); MEAN CORPUSCULAR HEMOGLOBIN 25.9 pg (28-32); MEAN CORPUSCULAR HGB CONC 27.6 g/dL (31-35); MEAN CORPUSCULAR VOLUME 93.9 fL (81-99); MONOCYTES % 2.5 % (4.4-11.3); NEUTROPHILS # (AUTO) 37.5 (2.1-6.9); NEUTROPHILS % 90.8 % (38.7-80.0); PLATELET COUNT 238 x10e3/uL (140-360); RED BLOOD COUNT 3.63 x10e6/uL (3.6-5.1); RED CELL DISTRIBUTION WIDTH 18.6 % (11.7-14.4)
[2024-05-07 14:37] LABS: ALBUMIN 3.1 g/dL (3.5-5.0); ALBUMIN/GLOBULIN RATIO 0.7 (0.8-2.0); ANION GAP 23.2 mmol/L (8-16); BILIRUBIN,TOTAL 2.1 mg/dL (0.2-1.2); CALCIUM 9.1 mg/dL (8.4-10.2); CREATININE, SERUM 4.29 mg/dL (0.57-1.11); POTASSIUM 4.2 mmol/L (3.5-5.1); TOTAL PROTEIN 7.3 g/dL (6.5-8.1)
[2024-05-07] MEDS: METRONIDAZOLE 500MG/NS 100ML 100 ML IV ONE (14:37)
[2024-05-07] MEDS: SODIUM CHLORIDE 0.9% IV ONE (14:40)
[2024-05-07 14:42] LABS: WHITE BLOOD COUNT 41.32 x10e3/uL (4.8-10.8)
[2024-05-07] MEDS: VANCOMYCIN 1.25GM/250 ML (PEG) 250 ML IV ONE (15:48)
[2024-05-07] MEDS ORDERED: BENZONATATE 100 MG CAP PO PRN (16:00)
[2024-05-07] MEDS ORDERED: DOCUSATE SODIUM 100 MG CAP PO PRN (16:00)
[2024-05-07] MEDS ORDERED: SODIUM CHLORIDE 0.9% 1000ML 1,000 ML IV SCH (16:00)
[2024-05-07] MEDS ORDERED: MELATONIN 5 MG TABLET PO PRN (16:00)
[2024-05-07] MEDS: MUPIROCIN 2% OINT 22 GM TUBE TOP SCH (16:00)
[2024-05-07] MEDS ORDERED: SIMETHICONE 80 MG CHEW PO PRN (16:00)
[2024-05-07] MEDS ORDERED: DIPHENHYDRAMINE HCL 25 MG CAP PO PRN (16:00)
[2024-05-07] MEDS ORDERED: LIDOCAINE 4% PATCH TP PRN (16:00)
[2024-05-07] MEDS ORDERED: ONDANSETRON HCL INJ 2MG/ML 2ML 2 MG/ML VIAL IV PRN (16:00)
[2024-05-07] MEDS ORDERED: ALBUTEROL/IPRATROPIUM 3 ML NEB NEB PRN (16:00)
[2024-05-07] MEDS: ACETAMINOPHEN 1000 MG/100 ML IV STA (16:19)
[2024-05-07 16:41] LABS: BAND NEUTROPHILS % (MANUAL) 11 %; LYMPHOCYTES % (MANUAL) 2 % (19-48); MONOCYTES % (MANUAL) 5 % (3.4-9.0); NEUTROPHILS % (MANUAL) 82 % (40-74); PLATELET ESTIMATE ADEQUATE; PLATELET MORPHOLOGY COMMENT NORMAL; RBC MORPHOLOGY COMMENT NORMAL
[2024-05-07] MEDS: VANCOMYCIN HCL 125 MG CAPSULE PO SCH (16:58)
[2024-05-07] MEDS: ENOXAPARIN 30 MG/0.3 ML SYR SC SCH (16:58)
[2024-05-07] MEDS: SODIUM BICARBONATE 8.4% SYRING 150 ML in DEXTROSE 5% 1,000 ML IV SCH (16:58)
[2024-05-07] MEDS ORDERED: ENOXAPARIN SOD INJ 40 MG/0.4 ML SYR SC SCH (17:00)
[2024-05-07] MEDS ORDERED: VANCOMYCIN HCL 125 MG CAPSULE PO SCH (17:00)
[2024-05-07] MEDS: DEXTROSE 50% SYRINGE 50 ML IV PRN (17:25)
[2024-05-07 18:21] LABS: CLARITY,URINE SL CLOUDY (CLEAR); COLOR,URINE YELLOW (YELLOW); GLUCOSE, URINE NEGATIVE (NEGATIVE); KETONES,URINE NEGATIVE (NEGATIVE); LEUKOCYTE ESTERASE ,URINE NEGATIVE (NEGATIVE); NITRITE,URINE NEGATIVE (NEGATIVE); PH,URINE 5.5 (5 - 7); PROTEIN,URINE DIPSTICK 2+ (NEGATIVE); URINE UROBILINOGEN 0.2 mg/dL (0.2 - 1)
[2024-05-07 18:22] LABS: BILIRUBIN,URINE NEGATIVE (NEGATIVE)
[2024-05-07 18:40] LABS: RBC,URINE 0-5 /HPF (0-5); WBC,URINE (MAN) 0-5 /HPF (0-5)
[2024-05-07 18:41] LABS: BACTERIA,URINE MANY /HPF; EPITHELIAL CELLS,URINE MANY /LPF; TRANSITIONAL EPI CELLS,URINE MODERATE
[2024-05-07 19:04] LABS: ABG PH 7.22 (7.35-7.45)
[2024-05-07 19:05] LABS: ABG PCO2 21 mmHg (35-45); ABG PO2 73 mmHg (80-105); ABG TCO2 9
[2024-05-07 19:06] LABS: ABG HCO3 9 mmol/L (22-26)
[2024-05-07] MEDS: ALBUMIN 5% 0.05 GM/ML BTL IV ONE (20:07)
[2024-05-07] MEDS: FUROSEMIDE INJ 10 MG/ML 4 ML VIAL IV ONE (20:08)
[2024-05-07] MEDS: SODIUM BICARBONATE 8.4% INJ 50 ML SYR IV ONE (20:18)
[2024-05-07] MEDS: FUROSEMIDE INJ 10 MG/ML 2 ML VIAL IV ONE (20:18)
[2024-05-07] MEDS: METRONIDAZOLE 500MG/NS 100ML 100 ML IV SCH (22:06)
[2024-05-08] VITALS (25 sets, daily range): BP systolic 91–132; BP diastolic 50–71; PULSE 54–113; RESP 19–30; TEMP 97.7–98.5; O2SAT 92–97
[2024-05-08] MEDS: ONDANSETRON HCL INJ 2MG/ML 2ML 2 MG/ML VIAL IV PRN (03:18)
[2024-05-08 04:44] LABS: CDIFF AG QUIK CHEK **POSITIVE** (NEGATIVE); CDIFF TOX QUIK CHEK NEGATIVE (NEGATIVE)
[2024-05-08] MEDS: LEVOTHYROXINE SODIUM 50 MCG TAB PO SCH (06:21)
[2024-05-08 06:54] LABS: BASOPHILS # (AUTO) 0.1 (0.0-0.1); BASOPHILS % 0.3 % (0.0-1.0); EOSINOPHILS # (AUTO) 5.2 (0.0-0.4); EOSINOPHILS % 15.7 % (0.0-6.0); HEMATOCRIT 25.1 % (34.2-44.1); HEMOGLOBIN 7.7 g/dL (12.0-16.0); LYMPHOCYTES # (AUTO) 0.8 (1.0-3.2); LYMPHOCYTES % 2.6 % (18.0-39.1); MEAN CORPUSCULAR HEMOGLOBIN 26.1 pg (28-32); MEAN CORPUSCULAR HGB CONC 30.7 g/dL (31-35); MEAN CORPUSCULAR VOLUME 85.1 fL (81-99); MONOCYTES # (AUTO) 1.1 (0.2-0.8); MONOCYTES % 3.2 % (4.4-11.3); NEUTROPHILS # (AUTO) 22.7 (2.1-6.9); NEUTROPHILS % 69.2 % (38.7-80.0); PLATELET COUNT 199 x10e3/uL (140-360); RED BLOOD COUNT 2.95 x10e6/uL (3.6-5.1); RED CELL DISTRIBUTION WIDTH 18.2 % (11.7-14.4); WHITE BLOOD COUNT 32.83 x10e3/uL (4.8-10.8)
[2024-05-08] MEDS ORDERED: PANTOPRAZOLE SOD 40 MG TABEC PO SCH (07:30)
[2024-05-08 07:31] LABS: BAND NEUTROPHILS % (MANUAL) 10 %; METAMYELOCYTES % (MANUAL) 1 % (0-0); MONOCYTES % (MANUAL) 2 % (3.4-9.0); NEUTROPHILS % (MANUAL) 84 % (40-74); PLATELET ESTIMATE ADEQUATE; PLATELET MORPHOLOGY COMMENT NORMAL; RBC MORPHOLOGY COMMENT NORMAL; REACTIVE LYMPHOCYTES 3
[2024-05-08 07:45] LABS: ABG HCO3 9 mmol/L (22-26); ABG PCO2 21 mmHg (35-45); ABG PH 7.23 (7.35-7.45); ABG PO2 73 mmHg (80-105); ABG TCO2 9
[2024-05-08 08:20] LABS: ALBUMIN 2.6 g/dL (3.5-5.0); BILIRUBIN,TOTAL 2.3 mg/dL (0.2-1.2); CREATININE, SERUM 4.04 mg/dL (0.57-1.11); MAGNESIUM 1.3 MG/DL (1.3-2.1); PHOSPHORUS 6.6 MG/DL (2.3-4.7); TOTAL PROTEIN 5.2 g/dL (6.5-8.1)
[2024-05-08 08:26] LABS: CALCIUM 6.9 mg/dL (8.4-10.2)
[2024-05-08] MEDS: FOLIC ACID 1 MG TAB PO SCH (08:52)
[2024-05-08] MEDS: FAMOTIDINE 20 MG/2 ML VIAL IV SCH (08:53)
[2024-05-08] MEDS ORDERED: FAMOTIDINE 20 MG/2 ML VIAL IV SCH (09:00)
[2024-05-08 16:35] LABS: ANION GAP 22.6 mmol/L (8-16); CREATININE, SERUM 4.18 mg/dL (0.57-1.11)
[2024-05-08 16:47] LABS: CALCIUM 6.4 mg/dL (8.4-10.2); POTASSIUM 2.6 mmol/L (3.5-5.1)
[2024-05-08] MEDS: POTASSIUM CHLORIDE 20 MEQ TAB CR PO ONE (17:23)
[2024-05-08] MEDS: CALCIUM CHLORIDE 13.6 MEQ in SODIUM CHLORIDE 0.9% 100 ML IV ONE (17:24)
[2024-05-08] MEDS: ENOXAPARIN 30 MG/0.3 ML SYR SC SCH (17:24)
[2024-05-08] MEDS: POTASSIUM CHLORIDE 20MEQ/100ML 100 ML IV SCH (17:25)
[2024-05-08] MEDS: MAGNESIUM SULFATE 2GM/50ML 50 ML IV ONE ×2 (17:25→18:43)
[2024-05-08] MEDS ORDERED: SODIUM BICARBONATE 8.4% SYRING 150 ML in DEXTROSE 5% 1,000 ML IV SCH (18:30)
[2024-05-08] MEDS: LACTATED RINGER'S 1,000 ML INJ SCH (19:48)
[2024-05-08] MEDS: CALCIUM CARBONATE 500 MG CHEWABLE TABS PO SCH (20:03)
[2024-05-09] VITALS (20 sets, daily range): BP systolic 96–161; BP diastolic 53–77; PULSE 31–99; RESP 16–29; TEMP 98–98.6; O2SAT 91–98
[2024-05-09 06:47] LABS: BASOPHILS # (AUTO) 0.1 (0.0-0.1); BASOPHILS % 0.3 % (0.0-1.0); EOSINOPHILS % 0.2 % (0.0-6.0); HEMATOCRIT 24.5 % (34.2-44.1); HEMOGLOBIN 7.6 g/dL (12.0-16.0); LYMPHOCYTES # (AUTO) 1.2 (1.0-3.2); LYMPHOCYTES % 4.8 % (18.0-39.1); MEAN CORPUSCULAR HEMOGLOBIN 25.9 pg (28-32); MEAN CORPUSCULAR VOLUME 83.3 fL (81-99); MONOCYTES # (AUTO) 0.7 (0.2-0.8); MONOCYTES % 2.7 % (4.4-11.3); NEUTROPHILS # (AUTO) 19.7 (2.1-6.9); NEUTROPHILS % 79.9 % (38.7-80.0); PLATELET COUNT 167 x10e3/uL (140-360); RED BLOOD COUNT 2.94 x10e6/uL (3.6-5.1); RED CELL DISTRIBUTION WIDTH 18.2 % (11.7-14.4); WHITE BLOOD COUNT 24.61 x10e3/uL (4.8-10.8)
[2024-05-09 07:17] LABS: ALBUMIN 2.2 g/dL (3.5-5.0); ALBUMIN/GLOBULIN RATIO 0.7 (0.8-2.0); ANION GAP 19.4 mmol/L (8-16); CALCIUM 7.6 mg/dL (8.4-10.2); CREATININE, SERUM 4.09 mg/dL (0.57-1.11); POTASSIUM 3.4 mmol/L (3.5-5.1); TOTAL PROTEIN 5.2 g/dL (6.5-8.1)
[2024-05-09 10:03] LABS: EOSINOPHILS % (MANUAL) 1 % (0-7); LYMPHOCYTES % (MANUAL) 3 % (19-48); MONOCYTES % (MANUAL) 2 % (3.4-9.0); NEUTROPHILS % (MANUAL) 94 % (40-74); PLATELET ESTIMATE ADEQUATE
[2024-05-09 10:04] LABS: PLATELET MORPHOLOGY COMMENT NORMAL; RBC MORPHOLOGY COMMENT NORMAL
[2024-05-09] MEDS: LACTOBACILLUS ACIDOPHILUS CAPSULE PO SCH (20:19)
[2024-05-10] VITALS (26 sets, daily range): BP systolic 137–186; BP diastolic 71–91; PULSE 81–114; RESP 15–26; TEMP 97.8–98.7; O2SAT 93–97
[2024-05-10 06:42] LABS: BASOPHILS # (AUTO) 0.1 (0.0-0.1); BASOPHILS % 0.3 % (0.0-1.0); EOSINOPHILS # (AUTO) 0.2 (0.0-0.4); EOSINOPHILS % 1.1 % (0.0-6.0); HEMATOCRIT 25.2 % (34.2-44.1); LYMPHOCYTES # (AUTO) 1.2 (1.0-3.2); LYMPHOCYTES % 6.8 % (18.0-39.1); MEAN CORPUSCULAR HEMOGLOBIN 25.6 pg (28-32); MEAN CORPUSCULAR HGB CONC 31.7 g/dL (31-35); MEAN CORPUSCULAR VOLUME 80.5 fL (81-99); MONOCYTES # (AUTO) 0.6 (0.2-0.8); MONOCYTES % 3.4 % (4.4-11.3); NEUTROPHILS # (AUTO) 15.3 (2.1-6.9); NEUTROPHILS % 87.7 % (38.7-80.0); PLATELET COUNT 151 x10e3/uL (140-360); RED BLOOD COUNT 3.13 x10e6/uL (3.6-5.1); RED CELL DISTRIBUTION WIDTH 18.3 % (11.7-14.4); WHITE BLOOD COUNT 17.46 x10e3/uL (4.8-10.8)
[2024-05-10 07:10] LABS: ALBUMIN 2.3 g/dL (3.5-5.0); ALBUMIN/GLOBULIN RATIO 0.7 (0.8-2.0); ANION GAP 18.1 mmol/L (8-16); BILIRUBIN,TOTAL 1.6 mg/dL (0.2-1.2); CALCIUM 8.1 mg/dL (8.4-10.2); CREATININE, SERUM 3.51 mg/dL (0.57-1.11); TOTAL PROTEIN 5.4 g/dL (6.5-8.1)
[2024-05-10 07:11] LABS: POTASSIUM 3.1 mmol/L (3.5-5.1)
[2024-05-10] MEDS: VANCOMYCIN HCL 125 MG CAPSULE PO SCH (08:22)
[2024-05-10] MEDS: POTASSIUM CHLORIDE 20MEQ/100ML 200 ML IV ONE (08:22)
[2024-05-10] MEDS: HYDRALAZINE HCL 20 MG/ML VIAL IV PRN (08:48)
[2024-05-10] MEDS: POTASSIUM CHLORIDE 20MEQ/100ML 100 ML IV ONE (14:17)
[2024-05-10] MEDS: MEGACE 400 MG / 10 ML CUP PO SCH (17:02)
[2024-05-11] VITALS (26 sets, daily range): BP systolic 86–156; BP diastolic 45–107; PULSE 79–103; RESP 16–27; TEMP 97.9–98.5; O2SAT 93–98
[2024-05-11 07:25] LABS: BASOPHILS % 0.2 % (0.0-1.0); EOSINOPHILS # (AUTO) 0.2 (0.0-0.4); EOSINOPHILS % 1.8 % (0.0-6.0); HEMATOCRIT 27.4 % (34.2-44.1); HEMOGLOBIN 8.3 g/dL (12.0-16.0); LYMPHOCYTES # (AUTO) 1.8 (1.0-3.2); LYMPHOCYTES % 15.3 % (18.0-39.1); MEAN CORPUSCULAR HEMOGLOBIN 25.5 pg (28-32); MEAN CORPUSCULAR HGB CONC 30.3 g/dL (31-35); MONOCYTES # (AUTO) 0.6 (0.2-0.8); MONOCYTES % 5.4 % (4.4-11.3); NEUTROPHILS # (AUTO) 8.8 (2.1-6.9); NEUTROPHILS % 76.5 % (38.7-80.0); PLATELET COUNT 156 x10e3/uL (140-360); RED BLOOD COUNT 3.26 x10e6/uL (3.6-5.1); RED CELL DISTRIBUTION WIDTH 18.1 % (11.7-14.4); WHITE BLOOD COUNT 11.44 x10e3/uL (4.8-10.8)
[2024-05-11 07:51] LABS: ALBUMIN 2.3 g/dL (3.5-5.0); ALBUMIN/GLOBULIN RATIO 0.7 (0.8-2.0); ANION GAP 17.1 mmol/L (8-16); BILIRUBIN,TOTAL 0.9 mg/dL (0.2-1.2); CALCIUM 8.2 mg/dL (8.4-10.2); CREATININE, SERUM 2.57 mg/dL (0.57-1.11); TOTAL PROTEIN 5.4 g/dL (6.5-8.1)
[2024-05-11 07:54] LABS: POTASSIUM 3.1 mmol/L (3.5-5.1)
[2024-05-11] MEDS: POTASSIUM CHLORIDE 20MEQ/100ML 100 ML IV SCH (14:47)
[2024-05-12] VITALS (28 sets, daily range): BP systolic 147–173; BP diastolic 75–92; PULSE 88–108; RESP 12–25; TEMP 98.2–99.2; O2SAT 91–99
[2024-05-12 07:24] LABS: ANION GAP 15.2 mmol/L (8-16); CREATININE, SERUM 1.8 mg/dL (0.57-1.11)
[2024-05-12 07:26] LABS: POTASSIUM 3.2 mmol/L (3.5-5.1)
[2024-05-12] MEDS: POTASSIUM CHLORIDE 20 MEQ TAB CR PO PRN (08:04)
[2024-05-12] MEDS: ACETAMINOPHEN 325 MG TAB PO PRN (08:05)
[2024-05-12] MEDS: POTASSIUM CHLORIDE 20MEQ/100ML 200 ML IV ONE (11:26)
[2024-05-13] VITALS (28 sets, daily range): BP systolic 124–167; BP diastolic 63–92; PULSE 91–114; RESP 16–28; TEMP 98.3–98.9; O2SAT 93–99
[2024-05-13 07:43] LABS: ANION GAP 15.7 mmol/L (8-16); CALCIUM 8.4 mg/dL (8.4-10.2); CREATININE, SERUM 1.6 mg/dL (0.57-1.11); POTASSIUM 3.7 mmol/L (3.5-5.1)
[2024-05-13 10:35] LABS: BASOPHILS % 0.4 % (0.0-1.0); EOSINOPHILS # (AUTO) 0.3 (0.0-0.4); EOSINOPHILS % 3.2 % (0.0-6.0); HEMATOCRIT 29.2 % (34.2-44.1); HEMOGLOBIN 8.7 g/dL (12.0-16.0); LYMPHOCYTES # (AUTO) 1.8 (1.0-3.2); LYMPHOCYTES % 18.4 % (18.0-39.1); MEAN CORPUSCULAR HEMOGLOBIN 25.4 pg (28-32); MEAN CORPUSCULAR HGB CONC 29.8 g/dL (31-35); MEAN CORPUSCULAR VOLUME 85.4 fL (81-99); MONOCYTES % 10.8 % (4.4-11.3); NEUTROPHILS # (AUTO) 6.3 (2.1-6.9); NEUTROPHILS % 64.9 % (38.7-80.0); PLATELET COUNT 211 x10e3/uL (140-360); RED BLOOD COUNT 3.42 x10e6/uL (3.6-5.1); RED CELL DISTRIBUTION WIDTH 18.6 % (11.7-14.4); WHITE BLOOD COUNT 9.65 x10e3/uL (4.8-10.8)
[2024-05-13 10:43] LABS: ANION GAP 13.7 mmol/L (8-16); CALCIUM 8.3 mg/dL (8.4-10.2); CREATININE, SERUM 1.65 mg/dL (0.57-1.11); POTASSIUM 3.7 mmol/L (3.5-5.1)
[2024-05-13] MEDS ORDERED: SODIUM CHLORIDE 0.9% 250ML 250 ML ONE (22:32)
[2024-05-14] VITALS: BP 134/76; PULSE 72; RESP 18; TEMP 97.7; O2SAT 98
[2024-05-14 04:00] VITALS: BP 152/82; PULSE 105; RESP 18; TEMP 98.5; O2SAT 98
[2024-05-14 08:47] VITALS: PULSE 95; RESP 23; O2SAT 98
[2024-05-14 09:12] VITALS: BP 141/73; PULSE 91; RESP 17; TEMP 98.4; O2SAT 95
[2024-05-14 12:47] VITALS: BP 125/70; PULSE 98; RESP 15; TEMP 98.2; O2SAT 96
[2024-05-14] MEDS ORDERED: METRONIDAZOLE500 MG PO (13:20)
[2024-05-14] MEDS ORDERED: ONDANSETRON HCL 4 MG ORAL DISINTEGRATING TAB PO PRN (14:00)
[2024-05-14] MEDS: METRONIDAZOLE 500 MG TAB PO SCH (14:17)
[2024-05-14] MEDS: SODIUM CHLORIDE 0.9% 500ML 500 ML IV ONE (14:30)
[2024-05-14 15:39] VITALS: PULSE 92; RESP 18; O2SAT 96
[2024-05-15] MEDS ORDERED: FAMOTIDINE 20 MG TAB PO SCH (09:00)
== END 2024-05-14 17:30 | disposition home or self-care (01) | DRG 871 ==
LOC: ER 13:40 → ERHOLD 15:58 → ICU 17:10 → MED/SURG3 05-13 20:50
PROVIDERS: ADMIT Internal Medicine; ATTEND Internal Medicine
PROC: 02HV33Z Insertion of Infusion Device into Superior Vena Cava, Percutaneous Approach (ICD-10-PCS; principal; 2024-05-07)
PROC: B548ZZA Ultrasonography of Superior Vena Cava, Guidance (ICD-10-PCS; 2024-05-07)
PROC: 4A033R1 Measurement of Arterial Saturation, Peripheral, Percutaneous Approach (ICD-10-PCS; 2024-05-07)
PROC: 3E04329 Introduction of Other Anti-infective into Central Vein, Percutaneous Approach (ICD-10-PCS; 2024-05-10)
DX: A41.89 Other specified sepsis (principal); I21.A1 Myocardial infarction type 2; K72.00 Acute and subacute hepatic failure without coma; R65.21 Severe sepsis with septic shock; A04.72 Enterocolitis due to Clostridium difficile, not specified as recurrent; N17.9 Acute kidney failure, unspecified; K50.90 Crohn's disease, unspecified, without complications; E87.21 Acute metabolic acidosis; I10 Essential (primary) hypertension; K57.30 Diverticulosis of large intestine without perforation or abscess without bleeding; E86.0 Dehydration; E87.6 Hypokalemia; E83.42 Hypomagnesemia; E83.51 Hypocalcemia; E83.39 Other disorders of phosphorus metabolism; Z71.3 Dietary counseling and surveillance; Z68.29 Body mass index [BMI] 29.0-29.9, adult; E03.9 Hypothyroidism, unspecified; I95.9 Hypotension, unspecified; D50.9 Iron deficiency anemia, unspecified; D35.02 Benign neoplasm of left adrenal gland; R53.81 Other malaise; Z90.49 Acquired absence of other specified parts of digestive tract; Z71.81 Spiritual or religious counseling; Z79.899 Other long term (current) drug therapy; Z79.02 Long term (current) use of antithrombotics/antiplatelets; Z79.52 Long term (current) use of systemic steroids
CPT/HCPCS: 36415; 36569; 36600; 71045; 74176; 76705; 80048; 80053; 81001; 82805; 82948; 83605; 83690; 83735; 84100; 84484; 85025; 85610; 85730; 87040; 87045; 87086; 87324; 87449; 93005; 93306; 94799; 99252; 99284; J0360; J1650; J1940; J2405; J2543; J3475; J3480; J7030; J7040; J7050; J7070; J7799

== ENCOUNTER → 2024-06-11 | Outpatient (REF) | payer MEDICARE ==
[~2024-06-11] MED LIST changes: +METRONIDAZOLE500 MG PO
[2024-06-11 13:48] LABS: BASOPHILS % 0.2 % (0.0-1.0); EOSINOPHILS # (AUTO) 0.1 (0.0-0.4); EOSINOPHILS % 0.8 % (0.0-6.0); HEMATOCRIT 36.1 % (34.2-44.1); LYMPHOCYTES # (AUTO) 1.9 (1.0-3.2); LYMPHOCYTES % 19.7 % (18.0-39.1); MEAN CORPUSCULAR HEMOGLOBIN 25.6 pg (28-32); MEAN CORPUSCULAR HGB CONC 30.5 g/dL (31-35); MONOCYTES # (AUTO) 0.7 (0.2-0.8); MONOCYTES % 6.6 % (4.4-11.3); NEUTROPHILS # (AUTO) 7.1 (2.1-6.9); NEUTROPHILS % 72.2 % (38.7-80.0); PLATELET COUNT 320 x10e3/uL (140-360); RED CELL DISTRIBUTION WIDTH 17.2 % (11.7-14.4); WHITE BLOOD COUNT 9.86 x10e3/uL (4.8-10.8)
[2024-06-11 14:24] LABS: ALBUMIN 3.8 g/dL (3.5-5.0); ANION GAP 14.2 mmol/L (8-16); BILIRUBIN,TOTAL 0.4 mg/dL (0.2-1.2); CALCIUM 9.6 mg/dL (8.4-10.2); CREATININE, SERUM 1.21 mg/dL (0.57-1.11); POTASSIUM 4.2 mmol/L (3.5-5.1); TOTAL PROTEIN 7.5 g/dL (6.5-8.1)
== END ==
LOC: LAB 13:25
PROVIDERS: ATTEND Internal Medicine Critical Care Medicine
DX: R06.9 Unspecified abnormalities of breathing (principal)
CPT/HCPCS: 36415; 80053; 85025

== ENCOUNTER 2024-07-13 10:35 | Emergency (ER) | payer MEDICARE ==
[~2024-07-13] VITALS: Ht 162.6 cm; Wt 64.0 kg
[2024-07-13 10:46] VITALS: TEMP 97.8
[2024-07-13 11:01] LABS: BASOPHILS % 0.3 % (0.0-1.0); EOSINOPHILS # (AUTO) 0.2 (0.0-0.4); HEMATOCRIT 31.2 % (34.2-44.1); HEMOGLOBIN 9.3 g/dL (12.0-16.0); LYMPHOCYTES # (AUTO) 2.3 (1.0-3.2); LYMPHOCYTES % 24.9 % (18.0-39.1); MEAN CORPUSCULAR HEMOGLOBIN 26.3 pg (28-32); MEAN CORPUSCULAR HGB CONC 29.8 g/dL (31-35); MEAN CORPUSCULAR VOLUME 88.1 fL (81-99); MONOCYTES # (AUTO) 0.9 (0.2-0.8); MONOCYTES % 9.3 % (4.4-11.3); NEUTROPHILS # (AUTO) 5.9 (2.1-6.9); NEUTROPHILS % 63.1 % (38.7-80.0); PLATELET COUNT 401 x10e3/uL (140-360); RED BLOOD COUNT 3.54 x10e6/uL (3.6-5.1); RED CELL DISTRIBUTION WIDTH 16.6 % (11.7-14.4); WHITE BLOOD COUNT 9.34 x10e3/uL (4.8-10.8)
[2024-07-13] MEDS: LIDOCAINE VISC 2% SOLN 15 ML UDC PO ONE (11:13)
[2024-07-13] MEDS: MAGNESIUM/ALUMINUM/SIMETHICONE 30 ML UDC PO ONE (11:13)
[2024-07-13] MEDS: BELLADONNA ALK/PHENOBARBITAL 5 ML UDC PO STA (11:14)
[2024-07-13 11:26] LABS: ALBUMIN 3.6 g/dL (3.5-5.0); ALBUMIN/GLOBULIN RATIO 0.9 (0.8-2.0); ANION GAP 17.4 mmol/L (8-16); BILIRUBIN,TOTAL 0.4 mg/dL (0.2-1.2); CALCIUM 9.4 mg/dL (8.4-10.2); CREATININE, SERUM 1.41 mg/dL (0.57-1.11); POTASSIUM 4.4 mmol/L (3.5-5.1); TOTAL PROTEIN 7.6 g/dL (6.5-8.1)
[2024-07-13 11:32] LABS: TROPONIN I 0.019 ng/mL (0-0.300)
[2024-07-13 12:29] VITALS: PULSE 81; RESP 18; O2SAT 100
[2024-07-13] MEDS ORDERED: PANTOPRAZOLE SO40 MG PO (12:31)
== END 2024-07-13 12:45 | disposition home or self-care (01) ==
LOC: ER 10:39
DX: K21.9 Gastro-esophageal reflux disease without esophagitis (principal); I10 Essential (primary) hypertension; E03.9 Hypothyroidism, unspecified; E78.5 Hyperlipidemia, unspecified; D64.9 Anemia, unspecified; Z87.19 Personal history of other diseases of the digestive system
CPT/HCPCS: 36415; 71045; 80053; 83880; 84484; 85025; 93005; 99284

== ENCOUNTER 2024-10-25 18:44 | Inpatient (IN) | payer MEDICARE ==
[~2024-10-25] VITALS: Ht 162.6 cm; Wt 67.6 kg
[2024-10-25 19:25] LABS: BASOPHILS % 0.3 % (0.0-1.0); EOSINOPHILS % 1.0 % (0.0-6.0); LYMPHOCYTES % 20.6 % (18.0-39.1); MONOCYTES % 7.6 % (4.4-11.3); NEUTROPHILS % 69.6 % (38.7-80.0); RED CELL DISTRIBUTION WIDTH 17.6 % (11.7-14.4)
[2024-10-25 19:31] LABS: INR 0.92
[2024-10-25 19:40] LABS: EST GLOMERULAR FILTRATION RATE 29 ML/MIN (>=60)
[2024-10-25 19:54] LABS: CORONAVIRUS COVID-19 AG NEGATIVE (NEGATIVE)
[2024-10-25] MEDS: ACETAMINOPHEN 325 MG TAB PO STA (20:20)
[2024-10-25] MEDS ORDERED: IOPAMIDOL 370 MG/ML 100 ML INFUS..BTL INJ ONE (22:47)
[2024-10-26] VITALS (12 sets, daily range): BP systolic 116–154; BP diastolic 62–72; PULSE 74–106; RESP 16–23; TEMP 97.5–98.8; O2SAT 92–98
[2024-10-26] MEDS ORDERED: ONDANSETRON HCL INJ 2MG/ML 2ML 2 MG/ML VIAL IV PRN (00:15)
[2024-10-26] MEDS: SODIUM CHLORIDE 0.9% 250ML 250 ML IV ONE (00:44)
[2024-10-26] MEDS: SODIUM CHLORIDE 0.9% 1000ML 1,000 ML IV SCH (00:51)
[2024-10-26] MEDS ORDERED: AMLODIPINE BESYL5 MG PO (01:32)
[2024-10-26] MEDS ORDERED: METOPROLOL TART25 MG PO (01:32)
[2024-10-26] MEDS: PREDNISONE 5 MG TAB PO SCH (17:39)
[2024-10-26] MEDS: FERROUS SULFATE 325 MG TAB PO SCH (17:39)
[2024-10-26] MEDS: LEVOTHYROXINE SODIUM 50 MCG TAB PO SCH (17:39)
[2024-10-26] MEDS: FOLIC ACID 1 MG TAB PO SCH (17:39)
[2024-10-26] MEDS: ASCORBIC ACID 500 MG TAB PO SCH (17:39)
[2024-10-26] MEDS: PANTOPRAZOLE SOD 40 MG TABEC PO SCH (17:39)
[2024-10-26] MEDS: METOPROLOL TARTRATE 25 MG TAB PO SCH (17:40)
[2024-10-26] MEDS: SULFASALAZINE 500 MG TAB PO SCH (17:42)
[2024-10-26 21:06] LABS: % IRON SATURATION 14 % (15-50)
[2024-10-26] MEDS: AMLODIPINE BESYLATE 5 MG TAB PO SCH (21:26)
[2024-10-26] MEDS: ATORVASTATIN 10 MG TAB PO SCH (21:26)
[2024-10-27] VITALS (10 sets, daily range): BP systolic 136–178; BP diastolic 67–89; PULSE 81–102; RESP 18–20; TEMP 97–98.8; O2SAT 96–100
[2024-10-27] MEDS: ACETAMINOPHEN 325 MG TAB PO PRN (05:43)
[2024-10-27 05:44] LABS: BASOPHILS % 0.3 % (0.0-1.0); EOSINOPHILS % 4.1 % (0.0-6.0); LYMPHOCYTES % 26.5 % (18.0-39.1); MONOCYTES % 8.6 % (4.4-11.3); NEUTROPHILS % 59.6 % (38.7-80.0); RED CELL DISTRIBUTION WIDTH 17.6 % (11.7-14.4)
[2024-10-27 06:11] LABS: EST GLOMERULAR FILTRATION RATE 48 ML/MIN (>=60)
[2024-10-27 08:19] LABS: EOSINOPHILS % (MANUAL) 6 % (0-7); LYMPHOCYTES % (MANUAL) 25 % (19-48); MONOCYTES % (MANUAL) 9 % (3.4-9.0); NEUTROPHILS % (MANUAL) 60 % (40-74); PLATELET ESTIMATE ADEQUATE; PLATELET MORPHOLOGY COMMENT NORMAL
[2024-10-27] MEDS: SODIUM CHLORIDE 0.9% 250ML 250 ML IV ONE (10:03)
[2024-10-27] MEDS: AMLODIPINE BESYLATE 5 MG TAB PO ONE (22:09)
[2024-10-28] VITALS (10 sets, daily range): BP systolic 143–183; BP diastolic 71–93; PULSE 70–100; RESP 18–20; TEMP 96.5–98.1; O2SAT 96–99
[2024-10-28] MEDS: LABETALOL HCL 5 MG/ML 20ML VIAL IV PRN (00:59)
[2024-10-28 05:18] LABS: BASOPHILS % 0.3 % (0.0-1.0); EOSINOPHILS % 4.0 % (0.0-6.0); LYMPHOCYTES % 22.7 % (18.0-39.1); MONOCYTES % 9.1 % (4.4-11.3); NEUTROPHILS % 63.2 % (38.7-80.0); RED CELL DISTRIBUTION WIDTH 17.3 % (11.7-14.4)
[2024-10-28 06:10] LABS: EST GLOMERULAR FILTRATION RATE 44.0 ML/MIN (>=60)
[2024-10-28] MEDS: AMLODIPINE BESYLATE 5 MG TAB PO SCH (08:45)
[2024-10-29 08:00] VITALS: BP 156/81; PULSE 76; RESP 17; TEMP 97.7; O2SAT 100
[2024-10-29 11:59] VITALS: BP 154/81; PULSE 79; RESP 17; TEMP 98; O2SAT 97
[2024-10-29 12:39] LABS: BASOPHILS % 0.4 % (0.0-1.0); EOSINOPHILS % 3.2 % (0.0-6.0); LYMPHOCYTES % 17.0 % (18.0-39.1); MONOCYTES % 8.2 % (4.4-11.3); NEUTROPHILS % 70.6 % (38.7-80.0); RED CELL DISTRIBUTION WIDTH 17.7 % (11.7-14.4)
[2024-10-29 13:03] LABS: EST GLOMERULAR FILTRATION RATE 51.0 ML/MIN (>=60)
[2024-10-29 16:00] VITALS: BP 161/82; PULSE 89; RESP 21; TEMP 97.9; O2SAT 99
[2024-10-29 17:12] VITALS: BP 161/82; PULSE 89
== END 2024-10-29 18:50 | disposition home or self-care (01) | DRG 872 ==
LOC: ER 18:50 → ERHOLD 10-26 00:13 → MED/SURG 10-26 01:00
PROVIDERS: ADMIT Internal Medicine; ATTEND Internal Medicine
PROC: 3E0333Z Introduction of Anti-inflammatory into Peripheral Vein, Percutaneous Approach (ICD-10-PCS; principal; 2024-10-26)
PROC: 30233N1 Transfusion of Nonautologous Red Blood Cells into Peripheral Vein, Percutaneous Approach (ICD-10-PCS; 2024-10-27)
DX: A41.9 Sepsis, unspecified organism (principal); K92.1 Melena; D62 Acute posthemorrhagic anemia; N17.9 Acute kidney failure, unspecified; K50.90 Crohn's disease, unspecified, without complications; N18.30 Chronic kidney disease, stage 3 unspecified; K57.30 Diverticulosis of large intestine without perforation or abscess without bleeding; D50.9 Iron deficiency anemia, unspecified; K21.9 Gastro-esophageal reflux disease without esophagitis; E03.9 Hypothyroidism, unspecified; E78.5 Hyperlipidemia, unspecified; E86.0 Dehydration; R53.81 Other malaise; D35.02 Benign neoplasm of left adrenal gland; R00.0 Tachycardia, unspecified; R63.4 Abnormal weight loss; Z68.25 Body mass index [BMI] 25.0-25.9, adult; F32.A Depression, unspecified; F41.9 Anxiety disorder, unspecified; Z11.52 Encounter for screening for COVID-19; Z79.02 Long term (current) use of antithrombotics/antiplatelets; Z79.52 Long term (current) use of systemic steroids; Z79.890 Hormone replacement therapy; Z90.49 Acquired absence of other specified parts of digestive tract; Z88.5 Allergy status to narcotic agent
CPT/HCPCS: 36415; 71045; 74177; 80048; 80053; 82550; 82607; 82746; 83540; 83605; 83690; 83880; 84466; 84484; 85014; 85018; 85025; 85045; 85610; 85730; 86850; 86900; 86920; 87040; 87086; 93005; 94799; 99284; J2470; J2543; J7030; J7050; J7512; P9016; Q9967